=== PATIENT | male | born 1970 | race Caucasian/White ===

== ENCOUNTER 2019-05-29 19:42 | Inpatient (IN) | payer SELFPAY ==
[2019-05-29 19:49] VITALS: BMI 36.3
--- NOTE | 2019-05-29 19:56 | ECG_ITS ---
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 [id number]
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
[2019-05-29 20:32] LABS: Basophils % 0.3 %; Eosinophils # 0.2 10^3/uL (0.0-0.8); Eosinophils % 1.3 %; Hematocrit 46.1 % (42.0-52.0); Hemoglobin 15.6 g/dL (11.7-16.6); Lymphocytes # 1.8 10^3/uL (0.8-4.8); Lymphocytes % 15.5 %; Mean Corpuscular HGB Conc 33.8 g/dL (30.0-36.0); Mean Corpuscular Hemoglobin 28.1 pg (28.0-34.0); Mean Corpuscular Volume 82.9 fL (80-94); Mean Platelet Volume 9.6 fL (7.4-10.4); Monocytes # 1.1 10^3/uL (0.2-0.9); Monocytes % 9.6 %; Neutrophils # 8.3 10^3/uL (1.8-7.7); Neutrophils % 72.9 %; Nucleated Red Blood Cells % 0 %; Platelet Count 322 10^3/cmm (130-400); Red Blood Count 5.56 10^6/uL (4.1-5.3); Red Cell Distribution Width 13.7 % (12.1-15.1); White Blood Count 11.4 10^3/uL (4.0-10.0)
[2019-05-29 20:56] LABS: Alanine Aminotransferase 19 U/L (0-41); Albumin Level 4.5 g/dL (3.5-5.2); Alkaline Phosphatase 85 IU/L (40-130); Anion Gap 18.5 (5-19); Aspartate Amino Transferase 28 U/L (0-40); Blood Urea Nitrogen 11 mg/dL (6-20); Calcium 10.2 mg/dL (8.5-10.5); Carbon Dioxide 23 mmol/L (22-29); Chloride 95 mmol/L (98-107); Globulin 3.8 g/dL (1.3-4.6); Glomerular Filtration Rate 102.7 mL/min (90-130); Glucose 96 mg/dL (65-115); Phenytoin Dilantin 0.8 ug/mL (10-20); Potassium 3.5 mmol/L (3.5-5.1); Sodium 133 mmol/L (136-145); Thyroid Stimulating Hormone 1.99 uIU/mL (0.27-4.20); Total Bilirubin 0.7 mg/dL (0.15-1.2); Total Protein 8.3 g/dL (6.6-8.7); Valproic Acid Level 2.8 mcg/mL (50-100)
[2019-05-29 20:58] VITALS: BP 159/102; PULSE 133; RESP 26; TEMP 36.7; O2SAT 99
[2019-05-29 21:03] LABS: Lithium 0.1 mmol/L (0.6-1.2)
[2019-05-29 21:06] LABS: Acetaminophen < 5.0 ug/mL (10-30); Alcohol Level < 10 mg/dL (0-10); Salicylate < 0.3 mg/dL (3-10)
--- NOTE | 2019-05-29 21:27 | PC.NURSE ---
Report called to CELY Neal and patient placed in scrubs and belongings secured. Questions answered waiting for inpatient registration and plan to transport to [facility].
[2019-05-29 21:45] VITALS: BP 159/102; PULSE 133; RESP 26; TEMP 36.7; O2SAT 99
[2019-05-29 21:46] VITALS: RESP 18
[2019-05-30 06:00] VITALS: BP 121/70; PULSE 134; RESP 24; TEMP 36.9; O2SAT 95
[2019-05-30 14:00] VITALS: BP 116/71; PULSE 104; RESP 20; TEMP 36.8; O2SAT 96
[2019-05-30] MEDS: LORazepam 2 mg Tablet PO (15:04)
[2019-05-30] MEDS: OLANZapine ODT 5 MG TABLET PO (15:04)
--- NOTE | 2019-05-30 15:04 | PC.NURSE ---
PRN ZYPREXA ZYDIS ZYPREXA ZYDIS 5MG PO FOR AGITATION/PSYCHOSIS. PATIENT AGITATED AND TRYING TO GET OUT THE DOORS. PATIENT THINKS SOMEONE IS TRYING TO GET IN TO GET HIM. WILL CONTINUE TO MONITOR FOR MEDICATION EFFECTIVENESS.
--- NOTE | 2019-05-30 15:04 | PC.NURSE ---
PRN ATIVAN ATIVAN 2MG PO PER DR. LUNA ONE TIME ORDER FOR SEVERE ANXIETY.
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
--- NOTE | 2019-05-30 16:00 | PC.NURSE ---
PRN ZYPREXA DAMIEN FOLLOW UP MEDICATION SOMEWHAT EFFECTIVE. PATIENT ISNT AGITATED AND TRYING TO GET OUT THE DOORS ANYMORE.
[2019-05-30] MEDS: nicotine 2 mg Gum BUCCAL (17:38)
[2019-05-30 21:38] VITALS: RESP 18
--- NOTE | 2019-05-30 21:39 | PC.NURSE ---
Pt refused vitals. Respirations were taken.
[2019-05-31 06:00] VITALS: BP 102/69; PULSE 112; RESP 17; TEMP 36.5; O2SAT 94
--- NOTE | 2019-05-31 09:33 | CT_ITS ---
WS: [id number] CT HEAD TECHNIQUE: Noncontrast CT of the head obtained from the skullbase to the vertex. CLINICAL INFORMATION: new onset psychosis; recent head trauma; COMPARISON: None. DLP: 554.[address] scans at [facility] use at least one of these dose optimization techniques: automat ed exposure control; mA and/or kV adjustment per patient size (includes targeted exams where dose is matched to clinical indication); or iterative reconstruction. FINDINGS: No evidence of intracranial hemorrhage or mass effect. Ventricular system and basal cisterns are morse nt. 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 No extr a-axial fluid collections. No evidence of mass or mass effect. Normal alba-white differentiation. Paranasal sinuses and mastoid air cells are well aerated. .Normal visualized soft tissues. CT/CT head wo con* [id number] IMPRESSION: 1. No evidence of intracranial hemorrhage or mass effect. 2. Tiny chronic lacunar infarct anterior limb left internal capsule. 3. No other suspicious findings.
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
[2019-05-31 14:00] VITALS: BP 134/77; PULSE 77; RESP 20; TEMP 36.9; O2SAT 95
[2019-05-31] MEDS: quetiapine 100 mg Tablet 400 MG PO (20:40)
[2019-05-31 21:45] VITALS: BP 94/60; PULSE 124; RESP 28; TEMP 36.9; O2SAT 95
[2019-06-01 06:00] VITALS: BP 116/79; PULSE 77; RESP 22; TEMP 36.7; O2SAT 93
--- NOTE | 2019-06-01 10:33 | P.PN_ITS ---
Subjective NPU Subjective: Interval history: The patient is sound asleep this morning and will not arouse for interview. Mental Status Exam MSE Comments: Mental Status Exam: Patient is encountered lying in his bed asleep. He does not arouse to verbal stimuli. His breathing is unlabored. He is in no apparent distress. Cognition: Patient Appearance: Appropriate Level of Consciousness: Awake, Alert, Appropriate and Follows Commands Patient Cognition Impaired: No Ability to Follow Directions: Poor Patient Orientation (long list): Person Comprehension Ability: Unable to Comprehend Hallucination Type: None Delusion Description: Not Present Thought Process: Blocking Affect: Affect Description: [place] Behavior: Patient Behavior: Withdrawn Speech Pattern: Pressured Vitals/I&O/Wt Last Vital Signs Temp 98.1 F 06/01/19 06:00 Pulse 77 06/01/19 06:00 Resp 22 H 06/01/19 06:00 BP 116/79 06/01/19 06:00 Pulse Ox 93 06/01/19 06:00 Data NPU : 05/29/19 20:27 05/29/19 20:27 A&P Additional A&P Information Diagnoses:I cannot come up with a diagnosis for this man at this time. His mental status would be consistent with extreme methamphetamine intoxication or bipolar disorder manic episode or the result of a closed head injury. No urine drug screen was performed which complicates the differential diagnosis. Which also include diagnoses of psychosis secondary to major depression, psychotic disorder not otherwise specified, and brief psychotic reaction.Only time will tell. Assessment: Treatment plan: Due to the psychiatric conditions and treatment listed in the Assessment and Plan - the patient requires continued hospitalization. Will provide a safe and therapeutic environment for patient.. Will continue inpatient treatment to allow for medication adjustment and monitoring. Will continue q15 min safety checks. I cannot come up with a diagnosis for this man at this time. His mental status would be consistent with extreme methamphetamine intoxication or bipolar disorder manic episode or the result of a closed head injury. No urine drug screen was performed which complicates the differential diagnosis. Which also include diagnoses of psychosis secondary to major depression, psychotic disorder not otherwise specified, and brief psychotic reaction.Only time will tell.At this time we are going to treat his psychosis and level of agitation with when necessary lorazepam, Zyprexa, and Haldol. Hopefully, this is amphetamine intoxication he will normalize within the first 24 hours. If this is a manic e pisode, we will try to establish a regular diurnal cycle and start a mood stabilizer tomorrow.At this time he is at imminent risk to self or others and is 96 hour involuntary commitment will remain involved. Monitor patient's mood, sleep, appetite, and behavior closely. Encourage patient to participate in individual and group therapeutic sessions on the [place]. Estimated length of stay 5 days The expected benefits and potential side effects of patient's psychiatric medications were discussed with the patient. The patient understands and consents to treatment.CRITERIA FOR DISCHARGE: stable on medications and no longer an Risk to self or others hospital day #3: Patient tolerated Seroquel 200 mg at bedtime. He continues to have no insight into his cognitive and will emotional deficits. He continues to be mildly paranoid. Most notably though is his disorganized thinking that prevent establishment of anything close to his treatment plan or treatment goals. Plan: Increase Seroquel to 400 mg at bedtime Hospital day #4: Patient may be somewhat sedated from the increase of Seroquel to 400 mg at bedtime. To summarize for transfer of service, this patient presented with this acute mental status changes that were consistent both with amphetamine intoxication and oralia. He has no prior history of bipolar disorder though he is not a reliable informant and he did not have a confirmable mental health history. However you onset oralia at 43 years of age would be unusual and certainly less likely than amphetamine induced psychosis. As evidenced by his social history, he is prone to risk-taking behaviors. At this time the goal is to clarify whether this is amphetamine induced psychosis which would likely improve as he recovers from the amphetamine intoxication or one of new onset oralia which would require more ongoing mood stabilization.At this point, there is not enough information to make that determination. Plan: Continue Seroquel and when necessary antipsychotic medication and observe while he is on a 96 hour commitment. Involuntary Hold Information 96 Hour Hold: 96 Hour Involuntary Admission: Yes 96 Hour Hold Ending Date: 06/04/19 96 Hour Hold Ending Time: 21:03 Attestations NPU Medical Necessity Statement*: Patient will remain in hospital for 5 nights for the duration of his 96 hour involuntary commitment. Coding Level of Care Code Acute Medical Collector for Vitaly Scruggs
[2019-06-01 13:36] VITALS: BP 120/81; PULSE 72; RESP 18; TEMP 36.7; O2SAT 95
[2019-06-01 22:00] VITALS: BP 113/62; PULSE 75; RESP 20; TEMP 36.9; O2SAT 95
[2019-06-02 06:00] VITALS: BP 128/80; PULSE 79; RESP 18; TEMP 37; O2SAT 95
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
[2019-06-02] MEDS: OLANZapine ODT 5 MG TABLET PO (13:39)
[2019-06-02] MEDS: hyDROXYzine 25 mg Capsule 50 MG PO (13:39)
--- NOTE | 2019-06-02 13:39 | PC.NURSE ---
Addendum entered by Alanna Pablo LPN 06/02/19 16:36: PRN MEDS EFFECTIVE NO FURTHER C/O ANXIETY OR AGITATION. PT IS RESTING QUIETLY IN BED IN ROOM, RESP EVEN ET UNLABORED Original Note: PRN VISTARIL & ZYPREXA ZYDIS VISTARIL 50 MG GIVEN PO PER PT C/O ANXIETY & ZYPREXA ZYDIS 5 MG GIVEN PO PER PT C/O AGITATION. PT SLAMMED HIS DOOR TO HIS ROOM, YELLED AT STAFF WELL EVERYBODY ELSE IS SLAMMING THEIR DOORS AROUND HERE IT'S PISSING ME OFF
[2019-06-02 14:00] VITALS: BP 130/82; PULSE 94; RESP 19; TEMP 36.6; O2SAT 94
[2019-06-02] MEDS: trazodone 50 mg Tablet PO (20:35)
[2019-06-02] MEDS: quetiapine 100 mg Tablet 200 MG PO (20:36)
[2019-06-02 21:59] VITALS: BP 111/70; PULSE 81; RESP 17; TEMP 36.8; O2SAT 94
[2019-06-03 06:00] VITALS: BP 99/61; PULSE 71; RESP 16; TEMP 36.6; O2SAT 93
--- NOTE | 2019-06-03 13:41 | PC.NURSE ---
PT REPORTS TO STAFF THAT HE IS HAVING DIFFICULTY BREATHING. LUNG SOUNDS CLEAR, THROAT APPEARS REDDENED AND PT. DESCRIBES THAT HIS TONSILS FEEL SWOLLEN. PHYSICIAN INFORMED OF PATIENT COMPLAINT. ORDERS RECEIVED.
[2019-06-03] MEDS: LORazepam 2 mg Tablet PO (13:47)
--- NOTE | 2019-06-03 13:47 | PC.NURSE ---
Addendum entered by Ekaterina Amado LPN 06/03/19 14:33: MEDICATION EFFECTIVE. NO FURTHER C/O ANXIETY. PATIENT IS LYING IN BED RESTING. RESPIRATIONS EVEN AND UNLABORED. Original Note: PRN ATIVAN ATIVAN 2MG PO ONE TIME ORDER FOR SEVERE ANXIETY. PER DR. YORK VERBAL ORDER. WILL CONTINUE TO MONITOR FOR MEDICATION EFFECTIVENESS.
[2019-06-03] MEDS: cetylpyridinium Lozenge 1 EACH MUCOUS MEM ×2 (13:50→17:38)
[2019-06-03 14:00] VITALS: BP 130/86; PULSE 94; RESP 20; TEMP 36.8; O2SAT 96
--- NOTE | 2019-06-03 19:19 | P.PN_ITS ---
Subjective NPU Subjective: Interval history: The patient has come down with a sore throat. I examined at its inflamed but there is no pus and there is adequate airway. Auscultation of his trachea on either side is clear as are both lungs upper and lower, front and back. He can hardly whisper and meaningful communication is off the table for a while. He says his mood is better. His sister wants to talk to him and he signed a release for her to get in contact with him. Medications: Reviewed: Yes Mental Status Exam MSE Comments: The patient is dressed in his pajamas; it is time to go to bed. He is clean and neat. Mood is dysphoric and affect is flat. It is hard to say what his thought processes are speech are like right now. Cognitive functions remain intact. He denies suicidal or homicidal ideation, plan or intent Vitals/I&O/Wt Last Vital Signs Temp 98.2 F 06/03/19 14:00 Pulse 94 06/03/19 14:00 Resp 20 H 06/03/19 14:00 BP 130/86 06/03/19 14:00 Pulse Ox 96 06/03/19 14:00 Data NPU : 05/29/19 20:27 05/29/19 20:27 Involuntary Hold Information 96 Hour Hold: 96 Hour Involuntary Admission: Yes 96 Hour Hold Ending Date: 06/04/19 96 Hour Hold Ending Time: 21:03 Attestations NPU Medical Necessity Statement*: The patient is still recovering. I anticipate 4 to 6 additional midnights Time Spent in Patient Care: less than 15 minutes (>than 50% of time spent in counselling and/or direct pt care on unit) . Coding Level of Care Code Acute Customer Support Assistant for Vitaly Scruggs
[2019-06-03] MEDS: acetaminophen 325 mg Tablet 650 MG PO (21:40)
[2019-06-03] MEDS: quetiapine 100 mg Tablet 200 MG PO (21:41)
[2019-06-03 22:00] VITALS: BP 123/84; PULSE 90; RESP 20; TEMP 36.5; O2SAT 96
[2019-06-04 06:00] VITALS: BP 128/83; PULSE 66; RESP 18; TEMP 36.5; O2SAT 96
[2019-06-04 14:00] VITALS: BP 119/80; PULSE 87; RESP 20; TEMP 36.8; O2SAT 93
[2019-06-04] MEDS: cetylpyridinium Lozenge 1 EACH MUCOUS MEM ×2 (14:27→21:32)
--- NOTE | 2019-06-04 14:27 | PC.NURSE ---
PRN CEPACOL 1 LOZENGE GIVEN PO PER PT C/O SORE THROAT
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
[2019-06-04 20:04] VITALS: BP 127/61; PULSE 86; RESP 17; TEMP 36.5; O2SAT 95
[2019-06-04] MEDS: quetiapine 100 mg Tablet 200 MG PO (21:29)
[2019-06-04] MEDS: acetaminophen 325 mg Tablet 650 MG PO (21:31)
[2019-06-05 06:00] VITALS: BP 110/70; PULSE 56; RESP 15; TEMP 36.7; O2SAT 97
[2019-06-05 09:38] LABS: Influenza A by IFA Negative (Negative); Influenza B by IFA Negative (Negative)
[2019-06-05 12:36] LABS: Rapid Strep A Test Negative (Negative)
[2019-06-05 14:00] VITALS: BP 126/66; PULSE 106; RESP 18; TEMP 36.7; O2SAT 93
[2019-06-05] MEDS: cetylpyridinium Lozenge 1 EACH MUCOUS MEM (17:56)
--- NOTE | 2019-06-05 17:57 | PC.NURSE ---
Addendum entered by Alanna Pablo LPN 06/05/19 19:00: prn med effective no further c/o sore throat currently Original Note: PRN CEPACOL 1 LOZENGE GIVEN PO PER PT C/O SORE THROAT. WILL CONT TO MONITOR
[2019-06-05 21:24] VITALS: BP 133/89; PULSE 90; RESP 17; TEMP 36.6; O2SAT 96
[2019-06-05] MEDS: quetiapine 100 mg Tablet 200 MG PO (21:32)
[2019-06-06 06:00] VITALS: BP 110/66; PULSE 69; RESP 16; TEMP 36.5; O2SAT 94
[2019-06-06 14:00] VITALS: BP 141/86; PULSE 89; RESP 18; TEMP 36.9; O2SAT 96
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
[2019-06-06] MEDS: quetiapine 100 mg Tablet 200 MG PO (21:45)
[2019-06-06 22:00] VITALS: BP 143/89; PULSE 79; RESP 16; TEMP 36.8; O2SAT 93
[2019-06-07 06:00] VITALS: BP 115/63; PULSE 63; RESP 16; TEMP 36.5; O2SAT 96
[2019-06-07] MEDS: cetylpyridinium Lozenge 1 EACH MUCOUS MEM (09:58)
[2019-06-07] MEDS: blistex lip oint 7 gm Tube 1 APPLIC TOPICAL (09:58)
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
[2019-06-07 12:47] VITALS: BP 115/63; PULSE 63; RESP 16; TEMP 36.5; O2SAT 96
== END 2019-06-07 14:22 | disposition home or self-care (01) | DRG 881 ==
LOC: ER 21:00 → NP 21:20
PROVIDERS: Admitting Provider Psychiatry & Neurology Psychiatry; Emergency Provider Emergency Medicine; PCP Urology; Visit Provider Psychiatry & Neurology Psychiatry
DX: F32.9 Major depressive disorder, single episode, unspecified (principal); R45.851 Suicidal ideations; F15.10 Other stimulant abuse, uncomplicated; F17.210 Nicotine dependence, cigarettes, uncomplicated
CPT/HCPCS: 12345; 70450; 80053; 80156; 80164; 80178; 80185; 80307; 84443; 85025; 87081; 87804; 87880; 93005; 99284

== ENCOUNTER 2019-10-02 19:54 | Inpatient (IN) | payer SELFPAY ==
[2019-10-02 19:54] VITALS: BP 144/91; PULSE 72; RESP 22; TEMP 36.6; O2SAT 97
[2019-10-02 20:01] VITALS: BP 160/94; PULSE 84; RESP 18; TEMP 36.3; O2SAT 96; BMI 25.0
--- NOTE | 2019-10-02 20:22 | W.ED.PSYCH ---
HPI - Psych General: Chief Complaint: Psychiatric Symptoms Stated Complaint: mhe Time Seen by Provider: 10/02/19 20:11 Source: patient Mode of arrival: ambulatory Limitations: no limitations History of Present Illness: HPI Narrative: Ren is a 49-year-old male comes in complaining of having thoughts of wanting to hurt or kill himself. He states he has multiple plans and thoughts and has thoughts of how he may do this change rapidly. He has a history of suicidal ideation and previous hospitalizations for the same. He denies any other complaints or concerns. Review of Systems General: Reports: Other (Patient not cooperative to obtain ROS.) [facility] ED PFSH: Social History Smoking and tobacco status: current every day smoker Physical Exam Const: COMMON NORMALS: no acute distress, patient oriented x3, no limitations, healthy appearing and well nourished GENERAL APPEARANCE: cooperative, well kempt and well developed HENMT: COMMON NORMALS: normocephalic, atraumatic, external ears normal, EAC's normal and Normal external nose present HEAD & SCALP: normal to inspection, normocephalic and atraumatic FACE & SINUS: normal facial exam and face symmetric NOSE: Normal external nose present and Normal nares present EXTERNAL EAR: Yes external ears normal EXTERNAL AUDITORY CANAL: EAC's normal MOUTH: Normal oral and palatal mucosa present, lip normal and tongue normal Eye: COMMON NORMALS: Equal, round and reactive pupils present and conjunctivae normal GENERAL EYE: appearance normal, both eyes and all related structures ALIGNMENT: Yes alignment normal PERIORBITAL: periorbital findings normal EYELID: eyelids normal CONJUNCTIVA: Yes conjunctivae normal SCLERA: sclerae normal PUPIL: Yes Equal, round and reactive pupils present Neck/C-Spine: COMMON NORMALS: full ROM, no lymphadenopathy, supple, no meningeal signs and no JVD GENERAL: Yes normal visual inspection and Yes trachea midline Chest: COMMONS NORMALS: normal inspection of the chest and normal palpation of entire chest wall Resp: COMMON NORMALS: normal respiratory effort, No retractions and No use of accessory muscles EFFORT & INSPECTION: Yes able to speak in complete sentences and Yes symmetric chest movement AUSCULTATION: no crackles, no rales, no rhonchi and no wheezes Cardio: COMMON NORMALS: no JVD, regular rate, regular rhythm, S1 normal heart sound present and S2 normal heart sound present RATE: regular rate RHYTHM: regular rhythm HEART SOUNDS: S1 normal heart sound present, S2 normal heart sound present, no click, no gallops, no murmurs, no rubs and abnormal split S2 GI: COMMON NORMALS: Soft to palpation and No hepatosplenomegaly present PALPATION: Yes Soft to palpation, No Tenderness to palpation present (GI), No Guarding due to palpation present (GI), No Rigid due to palpation, Yes No hepatosplenomegaly present, No Hernia present, No Palpable mass present and No Pulsatile mass present : COMMON NORMALS: Yes no CVA tenderness BLADDER/KIDNEY EXAM: Yes no CVA tenderness Back/Pelvis: COMMON NORMALS: no CVA tenderness, thoracic and lumbar spine normal to inspection, no thoracic nor lumbar tenderness and thoraco-lumbar ROM normal Extremity: COMMON NORMALS: normal to inspection, full ROM, capillary refill normal, no joint enlargement, no clubbing, cyanosis or edema and no calf tenderness Neuro: COMMON NORMALS: patient oriented x3, CN's II-XII intact bilaterally, moves all extremities, no focal motor deficits and no sensory deficits noted MENINGEAL SIGNS: Yes no meningeal signs SPEECH: speech normal Psych: COMMON NORMALS: mental status grossly normal APPEARANCE: Yes well kempt Skin: COMMON NORMALS: no rashes or lesions noted, turgor normal, no jaundice, no petechiae and no mottling GENERAL SKIN EXAM: no rashes or lesions noted and turgor normal MDM - Psych MDM Narrative: Medical decision making narrative: The case is reviewed with Dr. Nj. He agrees to admit the patient to the MPU. An affidavit is placed on the chart so the patient can be 96 later if necessary. Lab Data: Labs: Lab Results 10/02/19 10/02/19 Range/Units 20:25 20:25 WBC 10.3 H (4.0-10.0) 10^3/ uL RBC 5.47 H (4.1-5.3) 10^6/u L Hgb 15.4 (11.7-16.6) g/dL Hct 46.5 (42.0-52.0) % MCV 85.0 (80-94) fL MCH 28.2 (28.0-34.0) pg MCHC 33.1 (30.0-36.0) g/dL RDW 13.3 (12.1-15.1) % Plt Count 328 (130-400) 10^3/c mm MPV 9.5 (7.4-10.4) fL Neut % (Auto) 60.7 % Lymph % (Auto) 28.9 % [place] % (Auto) 7.7 % Eos % (Auto) 1.7 % Baso % (Auto) 0.7 % Neut # (Auto) 6.3 (1.8-7.7) 10^3/u L Lymph # (Auto) 3.0 (0.8-4.8) 10^3/u L [place] # (Auto) 0.8 (0.2-0.9) 10^3/u L Eos # (Auto) 0.2 (0.0-0.8) 10^3/u L Baso # (Auto) 0.1 (0.0-0.1) 10^3/u L Nucleated RBC % (a uto) 0 % Nucleated RBCs # 0.0 /100WBC Sodium 135 L (136-145) mmol/L Potassium 4.0 (3.5-5.1) mmol/L Chloride 99 (98-107) mmol/L Carbon Dioxide 25 (22-29) mmol/L Anion Gap 15.0 (5-19) BUN 7 (6-20) mg/dL Creatinine 0.8 (0.7-1.2) mg/dL GFR Calculation 102.7 (90-130) mL/min Glucose 103 (65-115) mg/dL Calculated Osmolal ity 276 L (285-295) mOsm/k g Calcium 10.0 (8.5-10.5) mg/dL Total Bilirubin 0.3 (0.15-1.2) mg/dL AST 12 (0-40) U/L ALT 15 (0-41) U/L Alkaline Phosphata se 67 (40-130) IU/L Total Protein 7.2 (6.6-8.7) g/dL Albumin 4.3 (3.5-5.2) g/dL Globulin 2.9 (1.3-4.6) g/dL Salicylates < 0.3 L (3-10) mg/dL Acetaminophen < 5.0 L (10-30) ug/mL Ethyl Alcohol < 10 (0-10) mg/dL Discharge Plan Discharge Patient Disposition: Admitted As Inpatient Admit Provider: Felix Nj Clinical Impression: Suicidal ideation Condition: Stable Discharge Date/Time: 10/02/19 22:04 Coding Level of Care Code ED Office Clin Asst for Chg Fwd Exam Comprehensive
[2019-10-02 20:29] LABS: Basophils # 0.1 10^3/uL (0.0-0.1); Basophils % 0.7 %; Eosinophils # 0.2 10^3/uL (0.0-0.8); Eosinophils % 1.7 %; Hematocrit 46.5 % (42.0-52.0); Hemoglobin 15.4 g/dL (11.7-16.6); Lymphocytes % 28.9 %; Mean Corpuscular HGB Conc 33.1 g/dL (30.0-36.0); Mean Corpuscular Hemoglobin 28.2 pg (28.0-34.0); Mean Platelet Volume 9.5 fL (7.4-10.4); Monocytes # 0.8 10^3/uL (0.2-0.9); Monocytes % 7.7 %; Neutrophils # 6.3 10^3/uL (1.8-7.7); Neutrophils % 60.7 %; Nucleated Red Blood Cells % 0 %; Platelet Count 328 10^3/cmm (130-400); Red Blood Count 5.47 10^6/uL (4.1-5.3); Red Cell Distribution Width 13.3 % (12.1-15.1); White Blood Count 10.3 10^3/uL (4.0-10.0)
[2019-10-02 20:50] LABS: Alanine Aminotransferase 15 U/L (0-41); Albumin Level 4.3 g/dL (3.5-5.2); Alkaline Phosphatase 67 IU/L (40-130); Aspartate Amino Transferase 12 U/L (0-40); Blood Urea Nitrogen 7 mg/dL (6-20); Carbon Dioxide 25 mmol/L (22-29); Chloride 99 mmol/L (98-107); Globulin 2.9 g/dL (1.3-4.6); Glomerular Filtration Rate 102.7 mL/min (90-130); Glucose 103 mg/dL (65-115); Osmolality Calculated 276 mOsm/kg (285-295); Sodium 135 mmol/L (136-145); Total Bilirubin 0.3 mg/dL (0.15-1.2); Total Protein 7.2 g/dL (6.6-8.7)
[2019-10-02 20:52] LABS: Acetaminophen < 5.0 ug/mL (10-30); Alcohol Level < 10 mg/dL (0-10); Salicylate < 0.3 mg/dL (3-10)
[2019-10-02 21:59] VITALS: BP 141/85; PULSE 72; RESP 18; TEMP 36.8; O2SAT 97
[2019-10-02 22:48] VITALS: BP 141/85; PULSE 72; RESP 18; TEMP 36.8
[2019-10-02] MEDS: acetaminophen 325 mg Tablet 650 MG PO (23:56)
[2019-10-02] MEDS: trazodone 50 mg Tablet PO (23:57)
[2019-10-03 02:24] LABS: Amphetamines Screen Urine Negative (Negative); Barbiturates Screen Urine Negative (Negative); Benzodiazepines Screen Urine Negative (Negative); Cocaine Screen Urine Negative (Negative); Opiate Screen Urine Negative (Negative); PCP Screen Urine Negative (Negative); THC Screen Urine Negative (Negative)
[2019-10-03 06:00] VITALS: BP 123/75; PULSE 118; RESP 15; TEMP 36.5; O2SAT 97
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
[2019-10-03 13:19] VITALS: BP 124/80; PULSE 78; RESP 18; TEMP 36.8; O2SAT 96
[2019-10-03] MEDS: acetaminophen 325 mg Tablet 650 MG PO (21:02)
[2019-10-03] MEDS: trazodone 50 mg Tablet PO (21:03)
--- NOTE | 2019-10-03 21:03 | PC.NURSE ---
PRN TRAZODONE PT REQUESTING SLEEP AID. ADMINISTERED TRAZODONE 50 MG PO. WILL MONITOR FOR MEDICATION EFFECTIVENESS.
[2019-10-03 22:00] VITALS: BP 130/84; PULSE 74; RESP 18; TEMP 36.4; O2SAT 94
[2019-10-04 06:00] VITALS: BP 114/69; PULSE 58; RESP 17; TEMP 36.7; O2SAT 95
[2019-10-04] MEDS: ARIPiprazole 10 mg Tablet PO (10:55)
--- NOTE | 2019-10-04 12:11 | PM.NPN ---
Subjective NPU Subjective: Interval history: Ren presents today reporting that he is open to a trial of the Abilify. He had his first dose and denied any significant drawbacks or issues. He then was inquiring about discharge which we agreed to explore tomorrow after he has had a second dose. He reports that he is eating and sleeping better and he denies any significant issues. Mental Status Exam MSE Comments: This is a short, overweight, white male, with adequate dress, grooming, and eye contact. No abnormal movements except for mild psychomotor retardation. Cooperative with exam in no acute distress. Speech was slightly decreased rate and volume. Mood described as a little better; affect subdued. Thought process, organized. Thought content: patient denied any suicidal or homicidal ideation, there were no delusions reported or noted, patient denied any auditory or visual hallucinations. Attention, concentration, and memory appear intact but were not formally tested. He is alert and oriented times three. Insight and judgment appear fair. Vitals/I&O/Wt Last Vital Signs Temp 98.2 F 10/04/19 21:42 Pulse 73 10/04/19 21:42 Resp 18 10/04/19 21:42 BP 152/90 10/04/19 21:42 Pulse Ox 96 10/04/19 21:42 Data NPU : 10/02/19 20:25 10/02/19 20:25 A&P Additional A&P Information (1) Suicidal ideation: (2) Psychotic disorder: This is a 49 year old, white male, who is known to the neuro-psychiatric unit from previous hospitalizations in the past year, who returns reporting that he had stopped his medication, and was starting to have return of symptoms and he presents open to a new medication trial. Continue current medication. Start Abilify 10 mg po qam. Encourage individual, group, and milieu therapy. Continue q 15-minute checks for safety. Involuntary Hold Information 96 Hour Hold: 96 Hour Involuntary Admission: No 96 Hour Hold Ending Date: 06/04/19 96 Hour Hold Ending Time: 21:03 Attestations NPU Medical Necessity Statement*: Inpatient hospitalization is medically necessary, and the clinically appropriate intervention at this time. He will be in the hospital for over two midnights. We will monitor medications and initiate or make changes as indicated. Likely length of stay 2-4 days. Coding Level of Care Code Acute Microphone Boom Operator for Vitaly Scruggs
[2019-10-04 13:26] VITALS: BP 141/83; PULSE 86; RESP 18; TEMP 37.1; O2SAT 97
--- NOTE | 2019-10-04 13:51 | PC.RESP ---
Smoking Cessation information and a schedule of classes sent to patient.
[2019-10-04] MEDS: trazodone 50 mg Tablet PO (21:34)
[2019-10-04] MEDS: acetaminophen 325 mg Tablet 650 MG PO (21:35)
[2019-10-04 21:42] VITALS: BP 152/90; PULSE 73; RESP 18; TEMP 36.8; O2SAT 96
[2019-10-05 06:00] VITALS: BP 121/75; PULSE 88; RESP 16; TEMP 36.4; O2SAT 90
[2019-10-05] MEDS: ARIPiprazole 10 mg Tablet PO (08:11)
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
[2019-10-05 12:00] VITALS: BP 121/75; PULSE 88; RESP 16; TEMP 36.4; O2SAT 90
== END 2019-10-05 12:17 | disposition home or self-care (01) | DRG 885 ==
LOC: ER 20:41 → NP 20:56
PROVIDERS: Physician Assistant; Admitting Provider Psychiatry & Neurology Psychiatry; Visit Provider Psychiatry & Neurology Psychiatry
DX: F23 Brief psychotic disorder (principal); R45.851 Suicidal ideations; Z91.5 Personal history of self-harm; F17.210 Nicotine dependence, cigarettes, uncomplicated; F15.10 Other stimulant abuse, uncomplicated
CPT/HCPCS: 12345; 36415; 80053; 80306; 80307; 85025; 99281

== ENCOUNTER 2019-10-26 09:14 | Emergency (ER) | payer SELFPAY ==
[2019-10-26 09:21] VITALS: BP 136/83; PULSE 83; RESP 18; TEMP 36.8; O2SAT 96; BMI 33.3
--- NOTE | 2019-10-26 09:44 | W.ED.MALEGU ---
HPI - Male Genitourinary General: Chief complaint: Urogenital-Male Stated complaint: WANTS CHECKED FOR CANCER AND HE IS HAVING KIDNEY P Time Seen by Provider: 10/26/19 09:30 History of Present Illness: HPI Narrative: 49-year-old male patient presents to the emergency department with complaints of blood in his urine and blood in his stool for the past several years. He is wanting screen for cancer, requesting CTs of his entire body. History of kidney stones. He reports history of constipation, last bowel movement several days ago, reports last episode of visible blood was approximately 7 days ago. He does complain of heartburn at times. Does not have a primary care provider. He denies fever chills or diarrhea. He reports pain that radiates in his abdomen down to the testicles. He denies testicular pain at this time. Last meal was yesterday, has not had anything to drink this morning. He has history of psychiatric inpatient admission, currently off recommended medication by [facility]. He states he has not followed up with [facility] for exemption of medications. He is requesting a primary care provider today upon exam. MD Complaint: testicle pain Onset (ago): year(s) (several) Duration: intermittent Associated symptoms: Reports hematuria and urinary retention (difficulty starting urine stream); Deny dysuria, nausea or vomiting Review of Systems General: Reports: 10 or more systems reviewed and unremarkable except in HPI and below Const: Denies: fever(s), chills or diaphoresis ENMT: Denies: throat pain, dental pain or disequilibrium Card: Denies: chest pain, palpitations or irregular heart rhythm Resp: Denies: dyspnea, productive cough, non-productive cough or wheezing GI: Reports: abdominal pain (left flank/generalized), pain on defecation, hematochezia and other (constipation, last BM 2-3 days ago); Denies: nausea, vomiting or dysphagia : Reports: flank pain (left), urinary hesitancy, difficulty starting urination, hematuria and testicular pain (not current); Denies: dysuria Musc: Denies: back pain Skin/Breast: Denies: rash or pruritus Neuro: Denies: headache(s), weakness in extremities or behavioral changes Psych: Reports: anxiety (history) and depression (denies currnet - h/o psych IP admission 09/2019); Denies: auditory hallucinations, suicidal ideation or homicidal ideation Olvin/Lymph: Denies: easy bruising PFSH ED PFSH: Social History Smoking and tobacco status: current every day smoker Physical Exam Const: COMMON NORMALS: no acute distress, patient oriented x3, healthy appearing and alert GENERAL APPEARANCE: cooperative, comfortable and well hydrated HENMT: COMMON NORMALS: normocephalic, Normal external nose present and moist oral mucous membranes HEAD & SCALP: normocephalic NOSE: Normal external nose present Eye: COMMON NORMALS: Equal, round and reactive pupils present and EOMs intact bilaterally GENERAL EYE: appearance normal, both eyes and all related structures PUPIL: Yes Equal, round and reactive pupils present Neck/C-Spine: COMMON NORMALS: full ROM and no lymphadenopathy GENERAL: Yes normal visual inspection and Yes trachea midline CERVICAL SPINE: Yes cervical ROM normal Lymph: LYMPHATIC: no lymphadenopathy noted Chest: COMMONS NORMALS: normal inspection of the chest Resp: COMMON NORMALS: normal respiratory effort and clear to auscultation bilaterally AUSCULTATION: clear to auscultation bilaterally Cardio: COMMON NORMALS: regular rhythm, S1 normal heart sound present and S2 normal heart sound present RHYTHM: regular rhythm HEART SOUNDS: S1 normal heart sound present and S2 normal heart sound present GI: COMMON NORMALS: Soft to palpation and No hepatosplenomegaly present INSPECTION: Yes normal to inspection PALPATION: Yes Soft to palpation, Yes Tenderness to palpation present (GI) Details: LLQ, RLQ, LUQ and RUQ, Yes No hepatosplenomegaly present and Yes Bladder palpation abnormal RECTAL EXAM: Yes visual inspection normal, Yes normal sphincter tone and Yes heme negative stool : COMMON NORMALS: Yes no scrotal swelling and Yes No hernias present BLADDER/KIDNEY EXAM: Yes Bladder palpation abnormal and Yes CVA tenderness on the left PENIS: normal penis and circumcised MEATUS: meatus normal SCROTUM: Yes testes descended bilaterally TESTES: Yes testicular lie normal Back/Pelvis: COMMON NORMALS: thoracic and lumbar spine normal to inspection GENERAL BACK: Yes CVA tenderness Extremity: COMMON NORMALS: normal to inspection and capillary refill normal Neuro: COMMON NORMALS: patient oriented x3 and no focal motor deficits SENSORIUM/ORIENTATION: Yes alert Psych: COMMON NORMALS: mental status grossly normal, Normal thought process present and cooperative ACTIVITY/MOTOR BEHAVIOR: Yes appropriate eye contact THOUGHT PROCESS: Normal thought process present Skin: COMMON NORMALS: no rashes or lesions noted and turgor normal GENERAL SKIN EXAM: no rashes or lesions noted and turgor normal Course ED course: 49-year-old male patient presented to the emergency department for abdominal pain/flank pain/testicular discomfort with visible blood in stool. He was requesting cancer work-up today, history of renal colic. He does not have a primary care provider. Work-up in the emergency department revealed 1.4 cm simple right renal cyst, 7 mm left renal calculus, two 5 mm calculi in the dilated left renal pelvis with mild bladder wall thickening. He was prescribed antibiotics, Pepcid and naproxen and Flomax, advised to follow-up with primary care, social service consult completed for primary care placement. Questions were answered, findings were discussed in depth. He has no further questions, feels comfortable going home is appreciative of work-up completed today. No appreciation of gastrointestinal abnormalities on today's exam. Reevaluation of abdominal exam without tenderness. Negative left flank tenderness. Vital Signs: Vital signs: Vital Signs Temperature 98.3 F 10/26/19 09:21 Pulse Rate 74 10/26/19 13:00 Respiratory Rate 14 10/26/19 13:00 Blood Pressure 136/82 10/26/19 13:00 Pulse Oximetry 97 10/26/19 13:00 MDM - Male Lab Data: Labs: Lab Results 10/26/19 10/26/19 10/26/19 Range/Units 09:37 11:02 11:02 WBC 9.9 (4.0-10.0) 10^3/ uL RBC 5.44 H (4.1-5.3) 10^6/u L Hgb 15.1 (11.7-16.6) g/dL Hct 46.4 (42.0-52.0) % MCV 85.3 (80-94) fL MCH 27.8 L (28.0-34.0) pg MCHC 32.5 (30.0-36.0) g/dL RDW 14.1 (12.1-15.1) % Plt Count 310 (130-400) 10^3/c mm MPV 9.7 (7.4-10.4) fL Neut % (Auto) 65.1 % Lymph % (Auto) 20.4 % [place] % (Auto) 11.0 % Eos % (Auto) 2.7 % Baso % (Auto) 0.5 % Neut # (Auto) 6.45 (1.8-7.7) 10^3/u L Lymph # (Auto) 2.0 (0.8-4.8) 10^3/u L [place] # (Auto) 1.1 H (0.2-0.9) 10^3/u L Eos # (Auto) 0.3 (0.0-0.8) 10^3/u L Baso # (Auto) 0.1 (0.0-0.1) 10^3/u L Nucleated RBC % (a uto) 0 % Nucleated RBCs # 0.0 /100WBC Sodium 138 (136-145) mmol/L Potassium 3.9 (3.5-5.1) mmol/L Chloride 104 (98-107) mmol/L Carbon Dioxide 26 (22-29) mmol/L Anion Gap 11.9 (5-19) BUN 12 (6-20) mg/dL Creatinine 0.9 (0.7-1.2) mg/dL GFR Calculation 89.7 L (90-130) mL/min Glucose 89 (65-115) mg/dL Calculated Osmolal ity 282 L (285-295) mOsm/k g Calcium 9.6 (8.5-10.5) mg/dL Total Bilirubin 0.2 (0.15-1.2) mg/dL AST 13 (0-40) U/L ALT 13 (0-41) U/L Alkaline Phosphata se 68 (40-130) IU/L Total Protein 7.1 (6.6-8.7) g/dL Albumin 4.3 (3.5-5.2) g/dL Globulin 2.8 (1.3-4.6) g/dL Lipase 25 (13-60) U/L Urine Color Yellow (Yellow) Urine Appearance Clear (CLEAR) Urine pH 5 (5-7) Ur Specific Gravit y 1.025 (1.005-1.030) Urine Protein Neg (Negative) Urine Glucose (UA) Norm (Normal) Urine Ketones Negative (Negative) Urine Blood 3+ H (Negative) Urine Nitrate Negative (Negative) Urine Bilirubin Neg (NEGATIVE) Urine Urobilinogen Norm (Negative) mg/dL Ur Leukocyte Remedios ase Negative (Negative) Urine RBC 15-25 H (0-2) /hpf Urine WBC 5-10 H (0-5) /hpf Ur Squamous Epith Cells 0-4 H (0-5) Amorphous Sediment Not Reportable Urine Bacteria Trace (NONE) Urine Mucus Trace Imaging Data: KUB: Radiologist's impression: Patient: Ren Crenshaw #: [id number] : 1970Acct#:[id number] Age/Sex: 49 / MADM Date: 10/26/19 Loc: ERRoom/Bed: Attending Dr: Ordering Provider/Ordering MD: Tangela Swenson Date of Service: 10/26/19 Procedure(s): XR KUB 96013 Accession Number(s): [id number] Report Number: [id number] PROCEDURE INFORMATION: Exam: XR Abdomen, 1 View Exam date and time: 10/26/2019 10:00 AM Age: 49 years old Clinical indication: Patient status: Conscious; Pain: Chronic abdominal pain l>r, hematuria; Prior surgery; Surgery date: 6+ months; Surgery type: Removal of renal calculus TECHNIQUE: Imaging protocol: XR of the abdomen. Views: Frontal supine view of the abdomen. 1 View. COMPARISON: CR XR KUB [id number] 07/24/2014 9:49 AM FINDINGS: Interval removal of previously visualized left double-J catheter. Multiple residual subcentimeter left renal calculi, the largest measuring 7 mm. Prominent stool. Degenerative change. XR/XR KUB 17214 IMPRESSION: Interval removal of left double-J catheter with residual subcentimeter left renal calculi. US: Radiologist's impression: Patient: Ren Crenshaw #: [id number] : 1970Acct#:[id number] Age/Sex: 49 / MADM Date: 10/26/19 Loc: ERRoom/Bed: Attending Dr: Ordering Provider/Ordering MD: Tangela Swenson Date of Service: 10/26/19 Procedure(s): US renal BI with bladder Accession Number(s): [id number] Report Number: [id number] PROCEDURE INFORMATION: Exam: US Retroperitoneal; Complete; Kidneys and Bladder Exam date and time: 10/26/2019 10:40 AM Age: 49 years old Clinical indication: Abdominal pain; Flank; Left; Patient HX: History of kidney stones bilaterally; Additional info: Left flank pain/renal colic TECHNIQUE: Imaging protocol: Real-time ultrasound of the retroperitoneum with image documentation. Complete exam focused on the kidneys and bladder. COMPARISON: CT abdomen pelvis w con* [id number] 06/09/2014 2:11 PM FINDINGS: Right kidney: Right kidney measures 11.9 cm in length. 1.4 cm simple right renal cyst. Left kidney: Left kidney measures 11.8 cm in length. Multiple nonobstructing left renal calculi, the largest measuring 10 mm. Aorta: Normal caliber of the visualized proximal abdominal aorta. Obscuration of the mid/distal abdominal aorta by bowel gas. Bladder: Nondistended bladder. US/US renal BI with bladder IMPRESSION: 1. 1.4 cm simple right renal cyst. 2. Multiple nonobstructing left renal calculi, the largest measuring 10 mm. COMMENTS: Consistent with the [employer]'s Incidental Findings Committee white paper (J Am Rajesh Radiol 2018): Any incidental renal lesion less than 1.0 cm or classified as too small to characterize, or any incidental cystic renal lesion characterized as simple-appearing, is likely benign. No follow-up imaging is recommended for these lesions per consensus recommendations based on imaging criteria. Dictated By:Doni Joy MD CT Abd/Pel: Radiologist's impression: [place] [address] CT Scan Report Signed Patient: Ren Crenshaw #: [id number] : 1970Acct#:[id number] Age/Sex: 49 / MADM Date: 10/26/19 Loc: ERRoom/Bed: Attending Dr: Ordering Provider/Ordering MD: Tangela Swenson Date of Service: 10/26/19 Procedure(s): CT abdomen pelvis wo/w 12298 Accession Number(s): [id number] Report Number: [id number] PROCEDURE INFORMATION: Exam: CT Abdomen And Pelvis Without And With Contrast Exam date and time: 10/26/2019 11:50 AM Age: 49 years old Clinical indication: Abdominal pain; Generalized; Patient HX: C/O abd/flank, and L testicle pain w hematuria HX of stones; Additional info: Renal colic/blood in stool/abd pain TECHNIQUE: Imaging protocol: Computed tomography of the abdomen and pelvis without and with intravenous contrast. Radiation optimization: All CT scans at this facility use at least one of these dose optimization techniques: automated exposure control; mA and/or kV adjustment per patient size (includes targeted exams where dose is matched to clinical indication); or iterative reconstruction. Contrast material: OMNI 300; Contrast volume: 95 ml; Contrast route: INTRAVENOUS (IV); COMPARISON: CT abdomen pelvis w con* [id number] 06/09/2014 2:11 PM RADIATION DOSE METRICS: Total DLP (mGy-cm): 2306.01 FINDINGS: Lungs: Interstitial prominence and trace airspace disease. Coronary artery calcification. Liver: No focal hepatic mass. Gallbladder and bile ducts: Contracted gallbladder. No biliary ductal dilatation. Pancreas: No pancreatic mass or ductal dilatation. Spleen: Enlarged spleen measuring 13.0 cm in length. 10 mm accessory spleen. Adrenals: Unremarkable adrenals. Kidneys and ureters: 7 mm left renal calculus. Two 5 mm calculi in the dilated left renal pelvis. No significant ureteral dilatation. 14 mm right renal cyst. Stomach and bowel: Mild wall thickening in the fluid-filled stomach. Mild jejunal dilatation without a transition zone. Diverticula, without pericolonic inflammation. Appendix: No acute appendicitis. Intraperitoneal space: No free fluid. Vasculature: Vascular calcification. No abdominal aortic aneurysm. Lymph nodes: Subcentimeter lymph nodes. Bladder: Mild circumferential bladder wall thickening. Reproductive: Prostate calcification. Bones/joints: Schmorl's nodes and degenerative change. Mild compression deformities, greatest severity at the L1 level. 2.6 cm intraosseous hemangioma in the L2 vertebral body. Soft tissues: Small fat containing inguinal hernias. CT/CT abdomen pelvis wo/w [id number] IMPRESSION: 1. 7 mm left renal calculus. 2. Two 5 mm calculi in the dilated left renal pelvis. 3. Mild circumferential bladder wall thickening. 4. Additional findings as described above. Discharge Plan Discharge Patient Disposition: Home, Self-Care Clinical Impression: Hematochezia, Renal calculi, Renal cyst Condition: Stable Prescriptions: New Flomax 0.4 mg capsule 0.4 mg PO DAILY Qty: 10 RF: 0 naproxen 500 mg tablet 500 mg PO BID PRN (Reason: pain) Qty: 20 RF: 0 Cipro 500 mg tablet 500 mg PO Q12H Qty: 14 RF: 0 Pepcid 20 mg tablet 20 mg PO Q12H Qty: 20 RF: 0 Discharge Orders: Discharge Order (Routine); Ordered 10/26/19 Ordered By: Tangela Swenson Discharge Diet: Usual diet Discharge Activity: Resume usual activity Activity Restrictions/Additional Instructions: rehabilitation services aide will be contacting you for your primary care provider, it is important you follow-up with your primary care provider as directed. You will need to follow-up within 7 days. If you have worsening abdominal pain, you will need to return to the emergency department Take antibiotics until all gone, take with food. Discharge Date/Time: 10/26/19 13:01 Coding Level of Care Code ED [employer] for Vitaly Scruggs Exam Comprehensive
--- NOTE | 2019-10-26 10:38 | PC.NURSE ---
US IN ROOM
[2019-10-26 11:08] LABS: Basophils # 0.1 10^3/uL (0.0-0.1); Basophils % 0.5 %; Eosinophils # 0.3 10^3/uL (0.0-0.8); Eosinophils % 2.7 %; Hematocrit 46.4 % (42.0-52.0); Hemoglobin 15.1 g/dL (11.7-16.6); Lymphocytes % 20.4 %; Mean Corpuscular HGB Conc 32.5 g/dL (30.0-36.0); Mean Corpuscular Hemoglobin 27.8 pg (28.0-34.0); Mean Corpuscular Volume 85.3 fL (80-94); Mean Platelet Volume 9.7 fL (7.4-10.4); Monocytes # 1.1 10^3/uL (0.2-0.9); Neutrophils # 6.45 10^3/uL (1.8-7.7); Neutrophils % 65.1 %; Nucleated Red Blood Cells % 0 %; Platelet Count 310 10^3/cmm (130-400); Red Blood Count 5.44 10^6/uL (4.1-5.3); Red Cell Distribution Width 14.1 % (12.1-15.1); White Blood Count 9.9 10^3/uL (4.0-10.0)
[2019-10-26 11:09] LABS: Add Urine Microscopic? YES; Bilirubin Urine Neg (NEGATIVE); Blood Urine 3+ (Negative); Glucose Urine UA Norm (Normal); Ketones Urine Negative (Negative); Leukocyte Esterase Urine Negative (Negative); Nitrate Urine Negative (Negative); Protein Urine Neg (Negative); RBC Urine 15-25 /hpf (0-2); Specific Gravity, Urine 1.025 (1.005-1.030); Urine Appearance Clear (CLEAR); Urine Color Yellow (Yellow); Urobilinogen Urine Norm (Negative); pH Urine 5 (5-7)
[2019-10-26 11:10] LABS: Add Urine Culture? Yes; Bacteria Urine TRACE; Mucus Urine TRACE; Squamous Epithelial Cell Urine 0-4 (0-5)
--- NOTE | 2019-10-26 11:35 | CTR_ITS ---
PROCEDURE INFORMATION: Exam: CT Abdomen And Pelvis Without And With Contrast Exam date and time: 10/26/2019 11:50 AM Age: 49 years old Clinical indication: Abdominal pain; Generalized; Patient HX: C/O abd/flank, and L testicle pain w hematuria HX of stones; Additional info: Renal colic/blood in stool/abd pain TECHNIQUE: Imaging protocol: Computed tomography of the abdomen and pelvis without and with intravenous contrast. Radiation optimization: All CT scans at this facility use at least one of these dose optimization techniques: automated exposure control; mA and/or kV adjustment per patient size (includes targeted exams where dose is matched to clinical indication); or iterative reconstruction. Contrast material: OMNI 300; Contrast volume: 95 ml; Contrast route: INTRAVENOUS (IV); COMPARISON: CT abdomen pelvis w con* [id number] 06/09/2014 2:11 PM RADIATION DOSE METRICS: Total DLP (mGy-cm): 2306.01 FINDINGS: Lungs: Interstitial prominence and trace airspace disease. Coronary artery calcification. Liver: No focal hepatic mass. Gallbladder and bile ducts: Contracted gallbladder. No biliary ductal dilatation. Pancreas: No pancreatic mass or ductal dilatation. Spleen: Enlarged spleen measuring 13.0 cm in length. 10 mm accessory spleen. Adrenals: Unremarkable adrenals. Kidneys and ureters: 7 mm left renal calculus. Two 5 mm calculi in the dilated left renal pelvis. No significant ureteral dilatation. 14 mm right renal cyst. Stomach and bowel: Mild wall thickening in the fluid-filled stomach. Mild jejunal dilatation without a transition zone. Diverticula, without pericolonic inflammation. Appendix: No acute appendicitis. Intraperitoneal space: No free fluid. Vasculature: Vascular calcification. No abdominal aortic aneurysm. Lymph nodes: Subcentimeter lymph nodes. Bladder: Mild circumferential bladder wall thickening. Reproductive: Prostate calcification. Bones/joints: Schmorl's nodes and degenerative change. Mild compression deformities, greatest severity at the L1 level. 2.6 cm intraosseous hemangioma in the L2 vertebral body. Soft tissues: Small fat containing inguinal hernias. CT/CT abdomen pelvis wo/w [id number] IMPRESSION: 1. 7 mm left renal calculus. 2. Two 5 mm calculi in the dilated left renal pelvis. 3. Mild circumferential bladder wall thickening. 4. Additional findings as described above. Radiation Dose CTDIVOL = (mGy): DLP = 2306.01 (mGy-cm)
[2019-10-26 11:39] LABS: Alanine Aminotransferase 13 U/L (0-41); Albumin Level 4.3 g/dL (3.5-5.2); Alkaline Phosphatase 68 IU/L (40-130); Anion Gap 11.9 (5-19); Aspartate Amino Transferase 13 U/L (0-40); Blood Urea Nitrogen 12 mg/dL (6-20); Calcium 9.6 mg/dL (8.5-10.5); Carbon Dioxide 26 mmol/L (22-29); Chloride 104 mmol/L (98-107); Globulin 2.8 g/dL (1.3-4.6); Glomerular Filtration Rate 89.7 mL/min (90-130); Glucose 89 mg/dL (65-115); Lipase 25 U/L (13-60); Osmolality Calculated 282 mOsm/kg (285-295); Potassium 3.9 mmol/L (3.5-5.1); Sodium 138 mmol/L (136-145); Total Bilirubin 0.2 mg/dL (0.15-1.2); Total Protein 7.1 g/dL (6.6-8.7)
[2019-10-26] MEDS: iohexol 300 mg/mL 100 mL Btl IV (12:10)
[2019-10-26 13:00] VITALS: BP 136/82; PULSE 74; RESP 14; O2SAT 97
--- NOTE | 2019-10-28 11:07 | DCPLANNER ---
manager fleet had message to speak with patient about getting established with a primary care physician. manager fleet called phone number , was unable to speak with patient at this time, phone number is no longer in service or has been disconnected.
== END 2019-10-26 13:01 | disposition home or self-care (01) ==
PROVIDERS: Emergency Provider Nurse Practitioner Family
DX: N20.0 Calculus of kidney (principal); N28.1 Cyst of kidney, acquired; K92.1 Melena; F17.210 Nicotine dependence, cigarettes, uncomplicated
CPT/HCPCS: 12345; 74018; 74178; 76770; 76857; 80053; 81001; 81003; 83690; 85025; 87086; 99282; 99284; Q9967

== ENCOUNTER 2019-11-03 09:43 | Emergency (ER) | payer SELFPAY ==
[2019-11-03 09:50] VITALS: BMI 36.6
[2019-11-03 09:53] VITALS: BP 157/86; PULSE 92; RESP 18; TEMP 36.8; O2SAT 97
--- NOTE | 2019-11-03 10:30 | CTR_ITS ---
PROCEDURE INFORMATION: Exam: CT Cervical Spine Without Contrast Exam date and time: 11/03/2019 10:37 AM Age: 49 years old Clinical indication: Neck pain TECHNIQUE: Imaging protocol: Computed tomography images of the cervical spine without contrast. Axial, coronal and sagittal reformatted images were created and reviewed. Radiation optimization: All CT scans at this facility use at least one of these dose optimization techniques: automated exposure control; mA and/or kV adjustment per patient size (includes targeted exams where dose is matched to clinical indication); or iterative reconstruction. COMPARISON: No relevant prior studies available. RADIATION DOSE METRICS: Total DLP (mGy-cm): 861.6 FINDINGS: Vertebrae: Osteopenia. Straightening of the normal cervical lordosis. Alignment anatomic. Minimal dextroscoliosis. No CT evidence of acute fracture, dislocation or subluxation. Vertebral body heights maintained. Discs/Spinal canal/Neural foramina: Mild multilevel degenerative changes, characterized by disc space narrowing, osteophytosis and uncovertebral and facet joint hypertrophy, most notably at C5-C6 and C6-C7. Mild spinal canal narrowing at C5-C6 and C6-C7. Mild left greater than right neural foraminal narrowing C7. Soft tissues: Grossly unremarkable. Lungs: Grossly unremarkable. CT/CT cervical spin wo con* [id number] IMPRESSION: 1. Mild multilevel spondylosis and degenerative disc disease. 2. Additional findings, as above. Radiation Dose CTDIVOL = (mGy): DLP = 861.6 (mGy-cm)
--- NOTE | 2019-11-03 10:30 | CTR_ITS ---
PROCEDURE INFORMATION: Exam: CT Head Without Contrast Exam date and time: 11/03/2019 10:37 AM Age: 49 years old Clinical indication: Pain; Headache; Additional info: BESS TECHNIQUE: Imaging protocol: Computed tomography of the head without contrast. Axial, coronal and sagittal reformatted images were created and reviewed. Radiation optimization: All CT scans at this facility use at least one of these dose optimization techniques: automated exposure control; mA and/or kV adjustment per patient size (includes targeted exams where dose is matched to clinical indication); or iterative reconstruction. COMPARISON: CT head wo con* [id number] 05/31/2019 11:49 AM RADIATION DOSE METRICS: Total DLP (mGy-cm): 770.21 FINDINGS: Brain: No CT evidence of acute intracranial hemorrhage or acute territorial infarction. No significant mass effect or midline shift. Basal cisterns patent. Ventricles: Normal in size and configuration. Bones/joints: No acute osseous abnormality. Sinuses: Minimal ethmoid mucosal thickening. Mastoid air cells: Grossly unremarkable. Soft tissues: Grossly unremarkable. CT/CT head wo con* [id number]: 1[address] No CT evidence of acute intracranial pathology. 2. Additional findings, as above. Radiation Dose CTDIVOL = (mGy): DLP = 770.21 (mGy-cm)
--- NOTE | 2019-11-03 10:33 | ED_ITS ---
HPI - General Adult General: Chief complaint: General Medical Stated complaint: UNCONTROLLABLE MOVEMENTS Time Seen by Provider: 11/03/19 09:57 History of Present Illness: HPI narrative: patient complains of uncontrollable movements of his head, neck, and often the rest of his body. Patient states that all of these pains are from his neck and radiate outwards Onset (ago): month(s) Severity: severe Relieving factors: none Exacerbating factors: movement Treatments prior to arrival: none Review of Systems General: Reports: 10 or more systems reviewed and unremarkable except in HPI and below PFSH ED PFSH: Social History Smoking and tobacco status: current every day smoker Physical Exam Const: COMMON NORMALS: no acute distress, patient oriented x3, no limitations and alert HENMT: COMMON NORMALS: normocephalic, atraumatic, external ears normal and Normal external nose present HEAD & SCALP: normocephalic and atraumatic FACE & SINUS: normal facial exam NOSE: Normal external nose present EXTERNAL EAR: Yes external ears normal MOUTH: Normal oral and palatal mucosa present Neck/C-Spine: COMMON NORMALS: full ROM, no lymphadenopathy, supple, no meningeal signs and no JVD GENERAL: Yes normal visual inspection Resp: COMMON NORMALS: normal respiratory effort, No retractions, No use of accessory muscles and clear to auscultation bilaterally AUSCULTATION: clear to auscultation bilaterally Cardio: COMMON NORMALS: no JVD, regular rate and regular rhythm RATE: regular rate RHYTHM: regular rhythm GI: COMMON NORMALS: Normal to inspection, nondistended, normoactive bowel sounds present, Soft to palpation, non-tender, No hepatosplenomegaly present and no masses INSPECTION: Yes normal to inspection AUSCULTATION: Yes normoactive bowel sounds PALPATION: Yes Soft to palpation and Yes No hepatosplenomegaly present PERCUSSION: normal to percussion : COMMON NORMALS: Yes no CVA tenderness BLADDER/KIDNEY EXAM: Yes no CVA tenderness Back/Pelvis: COMMON NORMALS: no CVA tenderness, thoracic and lumbar spine normal to inspection, no thoracic nor lumbar tenderness, thoraco-lumbar ROM normal and straight leg raise negative bilaterally Extremity: COMMON NORMALS: normal to inspection, full ROM, capillary refill normal, no joint enlargement, no clubbing, cyanosis or edema, no calf tenderness and no pedal edema Neuro: COMMON NORMALS: patient oriented x3, moves all extremities, no focal motor deficits and no sensory deficits noted SENSORIUM/ORIENTATION: Yes alert MENINGEAL SIGNS: Yes no meningeal signs Psych: COMMON NORMALS: mental status grossly normal, Normal thought process present, cooperative, normal affect and speech normal SPEECH: Yes normal speech THOUGHT PROCESS: Normal thought process present Skin: COMMON NORMALS: no rashes or lesions noted, no wounds, turgor normal, no jaundice, no petechiae and no mottling GENERAL SKIN EXAM: no rashes or lesions noted and turgor normal Course Vital Signs: Vital signs: Vital Signs Temperature 98.3 F 11/03/19 09:53 Pulse Rate 92 11/03/19 09:53 Respiratory Rate 18 11/03/19 09:53 Blood Pressure 157/86 11/03/19 09:53 Pulse Oximetry 97 11/03/19 09:53 MDM - General Adult MDM Narrative: Medical decision making narrative: the movements of the patient's head and neck are obviously voluntary movements. There is no evidence of muscle spasm, tremor, or tardive dyskinesia Discharge Plan Discharge Patient Disposition: Home Clinical Impression: Dyskinesia Condition: Stable Prescriptions: New cyclobenzaprine 10 mg tablet 10 mg PO TID PRN (Reason: muscle spasm) Qty: 20 RF: 0 No Action Cipro 500 mg tablet 500 mg PO BID RF: 0 Discharge Orders: Discharge Order (Routine); Ordered 11/03/19 Ordered By: Bethel Lyons Coding Level of Care Code ED Machine Cloth Trimmer for Chg Fwd Exam Comprehensive
== END 2019-11-03 11:44 | disposition home or self-care (01) ==
PROVIDERS: Emergency Provider Family Medicine
DX: G24.9 Dystonia, unspecified (principal); F17.210 Nicotine dependence, cigarettes, uncomplicated
CPT/HCPCS: 12345; 70450; 72125; 99281; 99283

== ENCOUNTER 2019-12-06 09:15 | Emergency (ER) | payer SELFPAY ==
[2019-12-06 09:16] VITALS: BP 135/84; PULSE 83; RESP 37; TEMP 36.6; O2SAT 100; BMI 33.3
[2019-12-06 09:21] VITALS: BP 135/84; PULSE 76; RESP 18; O2SAT 94
--- NOTE | 2019-12-06 09:27 | W.ED.GENADLT ---
HPI - General Adult General: Chief complaint: General Medical Stated complaint: collapsed in waiting room Time Seen by Provider: 12/06/19 09:27 History of Present Illness: HPI narrative: Patient arrives in the ER with complaints of dry mouth shortness of breath and head movement times many months. Said he came in today because he just tired of it. Patient appeared to be hyperventilating on presentation to the ER. Patient is able to converse he is able to stop his head from moving if he wants to. MD complaint: Psychotic features Onset (ago): month(s) Associated symptoms: Deny chest pain, dyspnea, headache(s), nausea, rash or vomiting Review of Systems Narrative: Patient presents to the ER with reported collapsing out in the waiting room but it appears that he laid himself down on the floor he was able to help in assisting up onto the cart and in the room he states that his mouth has been dry for months his head will not quit turning and that he has been short of breath. Const: Denies: fever(s), chills or body aches Eyes: Denies: change in vision or blurry vision ENMT: Denies: throat pain or nasal congestion Card: Denies: chest pain or dyspnea on exertion Resp: Denies: dyspnea, productive cough or non-productive cough GI: Denies: abdominal pain, nausea or vomiting : Denies: difficulty urinating Musc: Denies: extremity pain Skin/Breast: Denies: rash Neuro: Denies: headache(s) Psych: Reports: anxiety; Denies: depression Olvin/Lymph: Denies: easy bruising PFSH ED PFSH: Social History Smoking and tobacco status: current every day smoker Physical Exam Narrative: EXAM NARRATIVE: Sats are stable he did not appear to have any difficulty breathing skin is warm and dry he is turning head purposefully from side to side. Is able to stop when asked to do that Const: COMMON NORMALS: no acute distress, average body habitus and patient oriented x3 HENMT: COMMON NORMALS: normocephalic HEAD & SCALP: normal to inspection and normocephalic FACE & SINUS: normal facial exam Eye: COMMON NORMALS: conjunctivae normal GENERAL EYE: appearance normal, both eyes and all related structures CONJUNCTIVA: Yes conjunctivae normal Neck/C-Spine: COMMON NORMALS: no JVD Chest: COMMONS NORMALS: normal inspection of the chest Resp: COMMON NORMALS: normal respiratory effort and clear to auscultation bilaterally AUSCULTATION: clear to auscultation bilaterally Cardio: COMMON NORMALS: no JVD, regular rate and regular rhythm RATE: regular rate RHYTHM: regular rhythm GI: COMMON NORMALS: Normal to inspection, nondistended, normoactive bowel sounds present Extremity: COMMON NORMALS: normal to inspection and full ROM Neuro: COMMON NORMALS: patient oriented x3 Psych: ACTIVITY/MOTOR BEHAVIOR: Yes hyperactivity SPEECH: Yes rapid MOOD & AFFECT: Yes anxious Course Vital Signs: Vital signs: Vital Signs Temperature 97.9 F 12/06/19 09:16 Pulse Rate 83 12/06/19 09:16 Respiratory Rate 37 H 12/06/19 09:16 Blood Pressure 135/84 12/06/19 09:16 Pulse Oximetry 100 12/06/19 09:16 Discharge Plan Discharge Prescriptions: No Action Cipro 500 mg tablet 500 mg PO BID RF: 0 cyclobenzaprine 10 mg tablet 10 mg PO TID PRN (Reason: muscle spasm) Qty: 20 RF: 0 Coding Level of Care Code ED Small Brake Form Operator for Vitaly Scruggs
[2019-12-06 09:29] LABS: Alveolar-Arterial Oxygen Gradi 9.7 mmHg (5-10); Arterial Blood Gas Hematocrit 51.7 % (42-52); Base Excess ABG -0.9 mmol/L (-2.0-2.0); Blood Gas Operator Identificat ED; Blood Gas Sample Site Brachial, right; Blood Gas Sample Type Arterial; Carboxyhemoglobin 7.5 %THgb (0.4-20.1); HCO3 ABG 17.7 mmol/L (22-26); HGB O2 Sat 85.8 % (95-100); Ionized Calcium Level - ABG 1.2 mmol/L (1.1-1.4); Methemoglobin 0.6 % (0.4-1.5); Oxygen Saturation ABG 93.5; Potassium Level - ABG 3.3 mmol/L (3.5-5.0); Total Hemoglobin 16.9 g/dL (14-18)
[2019-12-06 09:30] LABS: ABG PCO2 18.8 mmHg (35-45); ABG PH Result 7.58 (7.35-7.45)
--- NOTE | 2019-12-06 09:30 | XR_ITS ---
WS: [id number] Portable AP upright chest, 12/06/2019 Clinical Data: sob Comparison: Portable chest, 03/22/2019. Findings: No nodules, masses or effusions are seen. The heart is normal. The pulmonary vascularity is not increased. No pneumonia or pneumothorax is seen. Monitor leads on the chest wall. XR/XR chest 1V portable [id number] Impression: Negative chest.
[2019-12-06] MEDS: LORazepam 2 mg/mL INJ 1 mL 0.5 MG IM (09:36)
[2019-12-06] MEDS: LORazepam 2 mg/mL INJ 1 mL 1 MG IM (09:37)
--- NOTE | 2019-12-06 09:42 | PC.NURSE ---
ADI Castro and Dr Villarreal both ordered Ativan at the same time. Matthew cancelled his orginal order for 2 mg, after knowing that pt was giving Ativan 0.5 mg IM.
[2019-12-06 09:44] VITALS: BP 109/77; PULSE 72; RESP 18; O2SAT 96
[2019-12-06 09:44] LABS: Basophils # 0.1 10^3/uL (0.0-0.1); Basophils % 0.7 %; Eosinophils # 0.2 10^3/uL (0.0-0.8); Eosinophils % 2.2 %; Hematocrit 51.2 % (42.0-52.0); Hemoglobin 17.4 g/dL (11.7-16.6); Lymphocytes # 3.4 10^3/uL (0.8-4.8); Mean Corpuscular Hemoglobin 28.3 pg (28.0-34.0); Mean Corpuscular Volume 83.4 fL (80-94); Mean Platelet Volume 9.9 fL (7.4-10.4); Monocytes # 0.8 10^3/uL (0.2-0.9); Monocytes % 8.6 %; Neutrophils # 5.12 10^3/uL (1.8-7.7); Neutrophils % 53.3 %; Nucleated Red Blood Cells % 0 %; Platelet Count 365 10^3/cmm (130-400); Red Blood Count 6.14 10^6/uL (4.1-5.3); Red Cell Distribution Width 14.6 % (12.1-15.1); White Blood Count 9.6 10^3/uL (4.0-10.0)
--- NOTE | 2019-12-06 09:46 | PC.NURSE ---
States he has been having these same S/S for months. Needs to be on medication for depression / anxiety. NO currently on any meds
[2019-12-06 09:58] LABS: Alanine Aminotransferase 12 U/L (0-41); Albumin Level 4.9 g/dL (3.5-5.2); Alkaline Phosphatase 65 IU/L (40-130); Anion Gap 20.5 (5-19); Aspartate Amino Transferase 11 U/L (0-40); Blood Urea Nitrogen 15 mg/dL (6-20); Carbon Dioxide 18 mmol/L (22-29); Chloride 103 mmol/L (98-107); Globulin 3.7 g/dL (1.3-4.6); Glomerular Filtration Rate 79.4 mL/min (90-130); Glucose 101 mg/dL (65-115); Osmolality Calculated 282 mOsm/kg (285-295); Potassium 3.5 mmol/L (3.5-5.1); Sodium 138 mmol/L (136-145); Total Bilirubin 0.7 mg/dL (0.15-1.2); Total Protein 8.6 g/dL (6.6-8.7)
[2019-12-06 11:03] VITALS: BP 130/75; PULSE 67; RESP 18; TEMP 36.7; O2SAT 95
== END 2019-12-06 11:39 | disposition home or self-care (01) ==
PROVIDERS: Family Medicine; Emergency Provider Nurse Practitioner Family
DX: R06.02 Shortness of breath (principal); F17.210 Nicotine dependence, cigarettes, uncomplicated
CPT/HCPCS: 12345; 36600; 71045; 80051; 80053; 82810; 83986; 85025; 96372; 99283; J2060

== ENCOUNTER 2019-12-18 12:08 | Emergency (ER) | payer SELFPAY ==
[2019-12-18 12:09] VITALS: BP 124/84; PULSE 97; RESP 18; TEMP 36.6; O2SAT 95; BMI 25.0
--- NOTE | 2019-12-18 12:13 | XRR_ITS ---
PROCEDURE INFORMATION: Exam: XR Chest, 1 View Exam date and time: 12/18/2019 12:47 PM Age: 49 years old Clinical indication: Shortness of breath TECHNIQUE: Imaging protocol: XR of the chest Views: 1 view. COMPARISON: CR XR chest 1V portable [id number] 12/06/2019 9:28 AM FINDINGS: Lungs: Unremarkable. No consolidation. Pleural space: Unremarkable. No pleural effusion. No pneumothorax. Heart/Mediastinum: Unremarkable. No cardiomegaly. Bones/joints: Unremarkable. XR/XR chest 1V portable [id number] IMPRESSION: No acute findings.
--- NOTE | 2019-12-18 12:13 | ECG_ITS ---
[facility] Test Date: 2019-12-18 Pat Name: Ren Crenshaw Department: Room: Gender: Male Remote Coders: : 1970 Requested By: Chula Marte Order Number: [id number] Barrera MD: Danni Brown M.D. Measurements Intervals [place] Rate: 69 P: 43 MS: 202 QRS: 22 QRSD: 100 T: 91 QT: 411 QTc: 442 Interpretive Statements SINUS RHYTHM POSSIBLE INFERIOR MYOCARDIAL INFARCTION , PROBABLY OLD [30 ms Q WAVE IN II/aVF] Compared to ECG 05/29/2019 20:50:35 Sinus tachycardia no longer present Myocardial infarct finding still present Electronically Signed On 12-18-2019 19:53:51 CDT by Danni Brown M.D. [id number]
--- NOTE | 2019-12-18 12:15 | W.ED.GENADLT ---
HPI - General Adult General: Chief complaint: General Medical Stated complaint: constant moving Time Seen by Provider: 12/18/19 12:10 Source: patient Mode of arrival: ambulatory Limitations: no limitations History of Present Illness: HPI narrative: Ren is a 49-year-old male who comes in with uncontrollable movements. He states he has had these symptoms before. Today his symptoms started about 2 hours prior to arrival. He denies any chest pain, shortness of breath or nausea or vomiting. Patient's been seen here twice before for similar symptoms and no cause can be found. Patient states that this is somewhat worse and mild but otherwise he is not had fever, fatigue or any other systemic type illness symptoms. Patient with movements are purposeful with his head turning back and forth in his arms alternating with movements. His legs do not move but have purposeful movements making him more comfortable in the bed. The patient can be distracted and his movements can stop and he can follow commands and when he does so his movements once he says do not stop to stop. Associated symptoms: Deny chest pain, dyspnea, headache(s), nausea, rash, palpitations, syncope or vomiting Review of Systems Const: Denies: fever(s) Eyes: Denies: change in vision or blurry vision ENMT: Denies: throat pain or hoarseness Card: Denies: chest pain, palpitations, syncope, pre-syncope or dyspnea on exertion Resp: Denies: dyspnea, productive cough or non-productive cough GI: Denies: abdominal pain, nausea, vomiting or diarrhea : Denies: flank pain, dysuria, urinary frequency or urinary urgency Musc: Denies: neck pain, back pain or extremity pain Skin/Breast: Denies: rash or pruritus Neuro: Denies: headache(s), numbness in extremities, weakness in extremities or dizziness [facility] ED PFSH: Medical History (Updated 12/18/19 @ 13:27 by Chula Montero) Anxiety Social History Smoking and tobacco status: current every day smoker Physical Exam Const: COMMON NORMALS: no acute distress, patient oriented x3, no limitations, healthy appearing and well nourished GENERAL APPEARANCE: cooperative, well kempt and well developed OTHER: Patient has [id number] movements of moving his head back and forth and flailing his arms back and forth. Patient can stop when distracted and can stop when commanded to. Patient able to speak and give history throughout all of his movements. HENMT: COMMON NORMALS: normocephalic, atraumatic, external ears normal, EAC's normal and Normal external nose present HEAD & SCALP: normal to inspection, normocephalic and atraumatic FACE & SINUS: normal facial exam and face symmetric NOSE: Normal external nose present and Normal nares present EXTERNAL EAR: Yes external ears normal EXTERNAL AUDITORY CANAL: EAC's normal MOUTH: Normal oral and palatal mucosa present, lip normal and tongue normal Eye: COMMON NORMALS: Equal, round and reactive pupils present and conjunctivae normal GENERAL EYE: appearance normal, both eyes and all related structures ALIGNMENT: Yes alignment normal PERIORBITAL: periorbital findings normal EYELID: eyelids normal CONJUNCTIVA: Yes conjunctivae normal SCLERA: sclerae normal PUPIL: Yes Equal, round and reactive pupils present Neck/C-Spine: COMMON NORMALS: full ROM, no lymphadenopathy, supple, no meningeal signs and no JVD GENERAL: Yes normal visual inspection and Yes trachea midline Chest: COMMONS NORMALS: normal inspection of the chest and normal palpation of entire chest wall Resp: COMMON NORMALS: normal respiratory effort, No retractions, No use of accessory muscles and clear to auscultation bilaterally EFFORT & INSPECTION: Yes able to speak in complete sentences and Yes symmetric chest movement AUSCULTATION: clear to auscultation bilaterally, no crackles, no rales, no rhonchi and no wheezes Cardio: COMMON NORMALS: no JVD, regular rate, regular rhythm, S1 normal heart sound present and S2 normal heart sound present RATE: regular rate RHYTHM: regular rhythm HEART SOUNDS: S1 normal heart sound present, S2 normal heart sound present, no click, no gallops, no murmurs, no rubs and abnormal split S2 GI: COMMON NORMALS: Soft to palpation and No hepatosplenomegaly present PALPATION: Yes Soft to palpation, No Tenderness to palpation present (GI), No Guarding due to palpation present (GI), No Rigid due to palpation, Yes No hepatosplenomegaly present, No Hernia present, No Palpable mass present and No Pulsatile mass present : COMMON NORMALS: Yes no CVA tenderness BLADDER/KIDNEY EXAM: Yes no CVA tenderness Back/Pelvis: COMMON NORMALS: no CVA tenderness, thoracic and lumbar spine normal to inspection, no thoracic nor lumbar tenderness and thoraco-lumbar ROM normal Extremity: COMMON NORMALS: normal to inspection, full ROM, capillary refill normal, no joint enlargement, no clubbing, cyanosis or edema and no calf tenderness Neuro: COMMON NORMALS: patient oriented x3, CN's II-XII intact bilaterally, moves all extremities, no focal motor deficits and no sensory deficits noted MENINGEAL SIGNS: Yes no meningeal signs SPEECH: speech normal Psych: COMMON NORMALS: mental status grossly normal, Normal thought process present, cooperative, normal affect, speech normal and activity/motor behavior normal APPEARANCE: Yes well kempt SPEECH: Yes normal speech THOUGHT PROCESS: Normal thought process present Skin: COMMON NORMALS: no rashes or lesions noted, turgor normal, no jaundice, no petechiae and no mottling GENERAL SKIN EXAM: no rashes or lesions noted and turgor normal Course Vital Signs: Vital signs: Vital Signs Temperature 97.9 F 12/18/19 12:09 Pulse Rate 73 12/18/19 13:41 Respiratory Rate 18 12/18/19 13:41 Blood Pressure 163/76 12/18/19 13:41 Pulse Oximetry 98 12/18/19 13:41 MDM - General Adult MDM Narrative: Medical decision making narrative: 1334 -the patient symptoms have completely resolved. He admits this is probably a panic attack. He is asking something for anxiety. I will start him on Atarax and have him call [facility] [place] for follow-up. Patient denies any homicidal or suicidal ideation. He states now that he feels back to normal he is ready to go home. Medical Records: Attestation: I reviewed the patient's medical records. Medical records narrative: Patient's last 2 ER visits were reviewed. Patient apparently cannot stop moving whenever he wants to. Please see his last 2 ER notes 1 from October of this year the other from November of this year. Lab Data: Labs: Lab Results 12/18/19 12/18/19 12/18/19 Range/Units 12:22 12:22 12:22 WBC 10.6 H (4.0-10.0) 10^3/ uL RBC 5.89 H (4.1-5.3) 10^6/u L Hgb 16.6 (11.7-16.6) g/dL Hct 50.0 (42.0-52.0) % MCV 84.9 (80-94) fL MCH 28.2 (28.0-34.0) pg MCHC 33.2 (30.0-36.0) g/dL RDW 14.4 (12.1-15.1) % Plt Count 294 (130-400) 10^3/c mm MPV 10.2 (7.4-10.4) fL Neut % (Auto) 70.6 % Lymph % (Auto) 20.4 % Barron % (Auto) 7.4 % Eos % (Auto) 0.9 % Baso % (Auto) 0.5 % Neut # (Auto) 7.48 (1.8-7.7) 10^3/u L Lymph # (Auto) 2.2 (0.8-4.8) 10^3/u L Barron # (Auto) 0.8 (0.2-0.9) 10^3/u L Eos # (Auto) 0.1 (0.0-0.8) 10^3/u L Baso # (Auto) 0.1 (0.0-0.1) 10^3/u L Nucleated RBC % (a uto) 0 % Nucleated RBCs # 0.0 /100WBC Sodium 137 (136-145) mmol/L Potassium 3.9 (3.5-5.1) mmol/L Chloride 103 (98-107) mmol/L Carbon Dioxide 17 L (22-29) mmol/L Anion Gap 20.9 H (5-19) BUN 18 (6-20) mg/dL Creatinine 0.9 (0.7-1.2) mg/dL GFR Calculation 89.7 L (90-130) mL/min Glucose 96 (65-115) mg/dL Calculated Osmolal ity 280 L (285-295) mOsm/k g Calcium 9.7 (8.5-10.5) mg/dL Magnesium 2.2 (1.7-2.3) mg/dL Total Bilirubin 0.8 (0.15-1.2) mg/dL AST 12 (0-40) U/L ALT 8 (0-41) U/L Alkaline Phosphata se 61 (40-130) IU/L Troponin T Gen 5 n g/L 11 (0-15) ng/L Total Protein 8.3 (6.6-8.7) g/dL Albumin 4.6 (3.5-5.2) g/dL Globulin 3.7 (1.3-4.6) g/dL Imaging Data^: CXR: Attestation: I personally reviewed and interpreted this imaging study as follows: My impression: No acute cardiopulmonary findings. EKG Data^: EKG 1: Attestation: I personally reviewed and interpreted this EKG as follows: EKG interpretation date: 12/18/19 EKG interpretation time: 13:01 Interpretation: Normal sinus rhythm at 69 beats a minute, normal axis, no blocks, normal intervals, no acute ST-T wave changes. Computer generated interpretation: Chest X-Ray 12/18/19 12:13 IMPRESSION: No acute findings. Discharge Plan Discharge Patient Disposition: Home Clinical Impression: Anxiety Condition: Stable Prescriptions: New hydroxyzine HCl 25 mg tablet 25 mg PO Q4H PRN (Reason: anxiety) Qty: 30 RF: 0 No Action buspirone 5 mg tablet 5 mg PO BID Qty: 14 RF: 0 Discharge Orders: Discharge Order (Routine); Ordered 12/18/19 Ordered By: Chula Montero Referrals: [facility] [place] - BOUBACAR CHONG, [Staff Physician] - (You can also follow-up at the behavioral health clinic here in [place].) Discharge Diet: Advance as tolerated Discharge Activity: Increase activity as tolerated Patient Instructions: Anxiety (ED), Panic Attack Activity Restrictions/Additional Instructions: Please return to the ER immediately for any of the signs or symptoms listed on your discharge instruction sheets, worsening/changing of your symptoms, you are not getting better as quickly as expected, or for ANY other cause or concerns. Discharge Date/Time: 12/18/19 13:42 Coding Level of Care Code ED Health Policy Nurse for Chg Fwd Exam Comprehensive
[2019-12-18 12:27] LABS: Basophils # 0.1 10^3/uL (0.0-0.1); Basophils % 0.5 %; Eosinophils # 0.1 10^3/uL (0.0-0.8); Eosinophils % 0.9 %; Hemoglobin 16.6 g/dL (11.7-16.6); Lymphocytes # 2.2 10^3/uL (0.8-4.8); Lymphocytes % 20.4 %; Mean Corpuscular HGB Conc 33.2 g/dL (30.0-36.0); Mean Corpuscular Hemoglobin 28.2 pg (28.0-34.0); Mean Corpuscular Volume 84.9 fL (80-94); Mean Platelet Volume 10.2 fL (7.4-10.4); Monocytes # 0.8 10^3/uL (0.2-0.9); Monocytes % 7.4 %; Neutrophils # 7.48 10^3/uL (1.8-7.7); Neutrophils % 70.6 %; Nucleated Red Blood Cells % 0 %; Platelet Count 294 10^3/cmm (130-400); Red Blood Count 5.89 10^6/uL (4.1-5.3); Red Cell Distribution Width 14.4 % (12.1-15.1); White Blood Count 10.6 10^3/uL (4.0-10.0)
[2019-12-18] MEDS: ipratropium-albuterol 3 mL Neb INHALATION (12:29)
[2019-12-18 12:30] VITALS: PULSE 78; RESP 14; O2SAT 94
[2019-12-18 12:34] VITALS: PULSE 78
[2019-12-18] MEDS: diphenhydrAMINE 50 mg/mL SDV 1mL 25 MG IVP (12:34)
[2019-12-18] MEDS: sodium chloride 0.9% 1,000 ML 999 ML IV (12:38)
[2019-12-18 12:49] LABS: Alanine Aminotransferase 8 U/L (0-41); Albumin Level 4.6 g/dL (3.5-5.2); Alkaline Phosphatase 61 IU/L (40-130); Anion Gap 20.9 (5-19); Aspartate Amino Transferase 12 U/L (0-40); Blood Urea Nitrogen 18 mg/dL (6-20); Calcium 9.7 mg/dL (8.5-10.5); Carbon Dioxide 17 mmol/L (22-29); Chloride 103 mmol/L (98-107); Globulin 3.7 g/dL (1.3-4.6); Glomerular Filtration Rate 89.7 mL/min (90-130); Glucose 96 mg/dL (65-115); Magnesium 2.2 mg/dL (1.7-2.3); Osmolality Calculated 280 mOsm/kg (285-295); Potassium 3.9 mmol/L (3.5-5.1); Sodium 137 mmol/L (136-145); Total Bilirubin 0.8 mg/dL (0.15-1.2); Total Protein 8.3 g/dL (6.6-8.7)
[2019-12-18 13:20] LABS: Troponin T (5th) Once 11 ng/L (0-15)
[2019-12-18 13:41] VITALS: BP 163/76; PULSE 73; RESP 18; O2SAT 98
== END 2019-12-18 13:42 | disposition home or self-care (01) ==
PROVIDERS: Emergency Provider Emergency Medicine
DX: F41.9 Anxiety disorder, unspecified (principal); F17.210 Nicotine dependence, cigarettes, uncomplicated
CPT/HCPCS: 12345; 36415; 71045; 80053; 83735; 84484; 85025; 93005; 94640; 96361; 96374; 96375; 99282; 99283; J1200; J7030

== ENCOUNTER 2019-12-22 15:32 | Inpatient (IN) | payer SELFPAY ==
[2019-12-22 15:36] VITALS: BP 153/88; PULSE 108; RESP 18; TEMP 36.9; O2SAT 96; BMI 36.6
--- NOTE | 2019-12-22 15:37 | W.ED.PSYCH ---
HPI - Psych General: Chief Complaint: Psychiatric Symptoms Stated Complaint: SI Time Seen by Provider: 12/22/19 15:33 Source: patient and police Mode of arrival: other (police) Limitations: no limitations History of Present Illness: HPI Narrative: 49-year-old male who is here with police. Patient had brought them a gun and states that he is in the kill himself. Patient states he is suicidal. He is having hallucinations and believes that someone else is controlling him. Denies any recent suicide attempts. Associated symptoms: Reports auditory hallucinations and suicidal ideation Review of Systems Const: Denies: fever(s), chills, body aches or change in appetite Eyes: Denies: blurry vision or eye discomfort ENMT: Denies: throat pain or dental pain Card: Denies: chest pain Resp: Denies: dyspnea GI: Denies: abdominal pain, nausea, vomiting or diarrhea : Denies: dysuria Musc: Denies: neck pain or back pain Skin/Breast: Denies: rash Neuro: Denies: headache(s) Psych: Reports: paranoia, auditory hallucinations and suicidal ideation Olvin/Lymph: Denies: easy bruising All/Imm: Denies: urticaria PFS ED PFSH: Medical History (Updated 12/22/19 @ 16:24 by Dina Moore MD) Anxiety Social History Smoking and tobacco status: current every day smoker Physical Exam Const: COMMON NORMALS: no acute distress, patient oriented x3 and healthy appearing HENMT: COMMON NORMALS: normocephalic and atraumatic HEAD & SCALP: normocephalic and atraumatic Eye: COMMON NORMALS: Equal, round and reactive pupils present and EOMs intact bilaterally PUPIL: Yes Equal, round and reactive pupils present Neck/C-Spine: COMMON NORMALS: full ROM and supple Chest: COMMONS NORMALS: normal inspection of the chest and normal palpation of entire chest wall Resp: COMMON NORMALS: normal respiratory effort, No retractions, No use of accessory muscles and clear to auscultation bilaterally AUSCULTATION: clear to auscultation bilaterally Cardio: COMMON NORMALS: regular rate, regular rhythm and No murmurs present (Cardio) RATE: regular rate RHYTHM: regular rhythm GI: COMMON NORMALS: Normal to inspection, nondistended, normoactive bowel sounds present, Soft to palpation, non-tender and no masses PALPATION: Yes Soft to palpation Extremity: COMMON NORMALS: normal to inspection and full ROM Neuro: COMMON NORMALS: patient oriented x3, moves all extremities and no focal motor deficits Psych: COMMON NORMALS: mental status grossly normal ATTITUDE: Yes paranoid MOOD & AFFECT: Yes anxious THOUGHT CONTENT: Yes Suicidality present Skin: COMMON NORMALS: no rashes or lesions noted and no wounds GENERAL SKIN EXAM: no rashes or lesions noted MDM - Psych MDM Narrative: Medical decision making narrative: Ren presents here with suicidal ideation and chronic schizophrenia. Patient is under a 96-hour hold. He is medically cleared and I spoke to psychiatrist and will admit. Lab Data: Labs: Lab Results 12/22/19 12/22/19 12/22/19 Range/Units 15:46 15:54 15:54 WBC 10.1 H (4.0-10.0) 10^3/ uL RBC 5.65 H (4.1-5.3) 10^6/u L Hgb 16.4 (11.7-16.6) g/dL Hct 48.8 (42.0-52.0) % MCV 86.4 (80-94) fL MCH 29.0 (28.0-34.0) pg MCHC 33.6 (30.0-36.0) g/dL RDW 14.5 (12.1-15.1) % Plt Count 278 (130-400) 10^3/c mm MPV 10.8 H (7.4-10.4) fL Neut % (Auto) 63.6 % Lymph % (Auto) 26.6 % Sheridan % (Auto) 7.5 % Eos % (Auto) 1.5 % Baso % (Auto) 0.5 % Neut # (Auto) 6.43 (1.8-7.7) 10^3/u L Lymph # (Auto) 2.7 (0.8-4.8) 10^3/u L Sheridan # (Auto) 0.8 (0.2-0.9) 10^3/u L Eos # (Auto) 0.2 (0.0-0.8) 10^3/u L Baso # (Auto) 0.1 (0.0-0.1) 10^3/u L Nucleated RBC % (a uto) 0 % Nucleated RBCs # 0.0 /100WBC Sodium 137 (136-145) mmol/L Potassium 3.7 (3.5-5.1) mmol/L Chloride 104 (98-107) mmol/L Carbon Dioxide 18 L (22-29) mmol/L Anion Gap 18.7 (5-19) BUN 15 (6-20) mg/dL Creatinine 1.0 (0.7-1.2) mg/dL GFR Calculation 79.4 L (90-130) mL/min Glucose 129 H (65-115) mg/dL Calculated Osmolal ity 282 L (285-295) mOsm/k g Calcium 10.2 (8.5-10.5) mg/dL Total Bilirubin 0.5 (0.15-1.2) mg/dL AST 22 (0-40) U/L ALT 11 (0-41) U/L Alkaline Phosphata se 62 (40-130) IU/L Total Protein 8.1 (6.6-8.7) g/dL Albumin 4.6 (3.5-5.2) g/dL Globulin 3.5 (1.3-4.6) g/dL Salicylates 2.9 L (3-10) mg/dL Acetaminophen < 5.0 L (10-30) ug/mL Ur Barbiturates Sc reen Negative (Negative) ng/mL Ur Phencyclidine S crn Negative (Negative) ng/mL Ur Amphetamines Sc reen Negative (Negative) ng/mL U Benzodiazepines Scrn Negative (Negative) ng/mL Urine Cocaine Scre en Negative (Negative) ng/mL U Marijuana (THC) Screen Negative (Negative) ng/mL Ethyl Alcohol 17 H (0-10) mg/dL Discharge Plan Discharge Patient Disposition: Admitted As Inpatient Clinical Impression: Suicidal ideation, Chronic schizophrenia Condition: Stable Coding Level of Care Code ED Racking Technician for Vitaly Fwleonie Exam Comprehensive
[2019-12-22] MEDS: haloperidol inj 5 mg/mL INJ 1 mL IM (15:54)
[2019-12-22] MEDS: LORazepam 2 mg/mL INJ 1 mL IM (15:54)
[2019-12-22 16:12] LABS: Amphetamines Screen Urine Negative (Negative); Barbiturates Screen Urine Negative (Negative); Benzodiazepines Screen Urine Negative (Negative); Cocaine Screen Urine Negative (Negative); PCP Screen Urine Negative (Negative); THC Screen Urine Negative (Negative)
[2019-12-22 16:20] LABS: Alanine Aminotransferase 11 U/L (0-41); Albumin Level 4.6 g/dL (3.5-5.2); Alcohol Level 17 mg/dL (0-10); Alkaline Phosphatase 62 IU/L (40-130); Anion Gap 18.7 (5-19); Aspartate Amino Transferase 22 U/L (0-40); Basophils # 0.1 10^3/uL (0.0-0.1); Basophils % 0.5 %; Blood Urea Nitrogen 15 mg/dL (6-20); Calcium 10.2 mg/dL (8.5-10.5); Carbon Dioxide 18 mmol/L (22-29); Chloride 104 mmol/L (98-107); Eosinophils # 0.2 10^3/uL (0.0-0.8); Eosinophils % 1.5 %; Globulin 3.5 g/dL (1.3-4.6); Glomerular Filtration Rate 79.4 mL/min (90-130); Glucose 129 mg/dL (65-115); Hematocrit 48.8 % (42.0-52.0); Hemoglobin 16.4 g/dL (11.7-16.6); Lymphocytes # 2.7 10^3/uL (0.8-4.8); Lymphocytes % 26.6 %; Mean Corpuscular HGB Conc 33.6 g/dL (30.0-36.0); Mean Corpuscular Volume 86.4 fL (80-94); Mean Platelet Volume 10.8 fL (7.4-10.4); Monocytes # 0.8 10^3/uL (0.2-0.9); Monocytes % 7.5 %; Neutrophils # 6.43 10^3/uL (1.8-7.7); Neutrophils % 63.6 %; Nucleated Red Blood Cells % 0 %; Osmolality Calculated 282 mOsm/kg (285-295); Platelet Count 278 10^3/cmm (130-400); Potassium 3.7 mmol/L (3.5-5.1); Red Blood Count 5.65 10^6/uL (4.1-5.3); Red Cell Distribution Width 14.5 % (12.1-15.1); Salicylate 2.9 mg/dL (3-10); Sodium 137 mmol/L (136-145); Total Bilirubin 0.5 mg/dL (0.15-1.2); Total Protein 8.1 g/dL (6.6-8.7); White Blood Count 10.1 10^3/uL (4.0-10.0)
[2019-12-22 16:21] LABS: Acetaminophen < 5.0 ug/mL (10-30)
[2019-12-22 16:33] LABS: Opiate Screen Urine Negative (Negative)
[2019-12-22 18:20] VITALS: BP 117/66; PULSE 70; RESP 70; O2SAT 98
[2019-12-22] MEDS: trazodone 50 mg Tablet PO (21:17)
[2019-12-22] MEDS: hyDROXYzine 25 mg Capsule PO (21:19)
[2019-12-22 22:00] VITALS: BP 107/64; PULSE 59; RESP 14; TEMP 36.7; O2SAT 97
--- NOTE | 2019-12-22 22:30 | PC.NURSE ---
pt given prn vistaril and trazodone per pt request.
--- NOTE | 2019-12-23 02:54 | PC.NURSE ---
Patient has been sleeping since 1900 when I came on shift. He only woke up long enough to eat a snack and take his medications. He has been easy to interact with jose.
[2019-12-23 06:00] VITALS: BP 110/65; PULSE 51; RESP 15; TEMP 36.2; O2SAT 96
--- NOTE | 2019-12-23 06:28 | PC.NURSE ---
pt has slept well this night.
[2019-12-23] MEDS: BuSPIRONE 5 mg Tablet PO ×2 (08:56→17:32)
[2019-12-23 13:52] VITALS: BP 101/68; PULSE 77; RESP 18; TEMP 36.6; O2SAT 95
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
--- NOTE | 2019-12-23 15:19 | PC.RESP ---
Smoking Cessation information and a schedule of classes sent to patient.
[2019-12-23] MEDS: trazodone 50 mg Tablet PO (20:33)
[2019-12-23] MEDS: hyDROXYzine 25 mg Capsule PO (20:33)
[2019-12-23 22:00] VITALS: BP 129/83; PULSE 71; RESP 18; TEMP 36.5; O2SAT 96
--- NOTE | 2019-12-23 22:00 | PC.NURSE ---
PT GIVEN PRN TRAZODONE AND VISTARIL PER PT REQUEST.
[2019-12-24 06:00] VITALS: BP 114/60; PULSE 78; RESP 19; TEMP 36.6; O2SAT 97
[2019-12-24] MEDS: BuSPIRONE 5 mg Tablet PO ×2 (08:42→17:53)
[2019-12-24 14:00] VITALS: BP 95/65; PULSE 76; RESP 18; TEMP 36.8; O2SAT 96
--- NOTE | 2019-12-24 14:45 | PM.NPN ---
Subjective NPU Subjective: Interval history: Ren presents today reporting that he is not doing well on the medication. We had discussed extensively about how he had not followed through, and that may be part of what is going on. He continued this neck twitching that is seen some times and not seen at other times, and saying that the COVID chip is in his body and creating this situation. Then his came to visit, and he then came to the window asking when he was going to be discharged, and he said he is feeling okay. We discussed the risks, benefits, and alternatives of him leaving, given the situation with the gun and the police. He reports that he feels like he is going to go to [facility] for five years or so because of having a felony and having that gun as a felon. However, some of his stories have not quite panned out to be as large as he presents them, so we will need to follow up with that. We discussed the fact that until we saw that the medication was helping, given his situation with the COVID chip, that we would need to continue to monitor him on a hold. Mental Status Exam MSE Comments: This is an obese, short, white male, with adequate dress, grooming, and eye contact. No abnormal movement, except for psychomotor retardation, in addition to this hyper-agitated left head swing, almost like it was a tic. Cooperative with exam in no acute distress. Speech was normal rate and volume, but hard to understand as he kept swinging his head. Mood described as OK; affect congruent. Thought process, mostly organized. Thought content: patient denies suicidal ideation or homicidal ideation; he endorsed paranoia and bizarre delusions; he did endorse auditory hallucinations. Attention and concentration appeared intact, and memory appeared reliable, but none were formally tested. He is alert and oriented times three. Insight and judgment are impaired. Impulse control is impaired. Vitals/I&O/Wt Last Vital Signs Temp 98.0 F 12/24/19 21:00 Pulse 74 12/24/19 21:00 Resp 17 12/24/19 21:00 BP 137/79 12/24/19 21:00 Pulse Ox 95 12/24/19 21:00 Data NPU : 12/22/19 15:54 12/22/19 15:54 A&P Additional A&P Information (1) Suicidal ideation: (2) Chronic schizophrenia: (3) Anxiety: (4) Malingering: This is a 49 year old, white male, with a history of schizophrenia, anxiety, and previous substance abuse issues, who presents with suicidal ideation, a mildly elevated blood alcohol level at 17, endorsing odd delusions and being controlled by a chip. Continue current medication. Extent: Start lithium 300 mg by mouth twice a day. Encourage individual, group, and milieu therapy. Continue q-15 minute checks for safety. Recommend sober living treatment at the highest level of care to which the patient is willing to commit. Involuntary Hold Information 96 Hour Hold: 96 Hour Involuntary Admission: Yes 96 Hour Hold Ending Date: 12/27/19 96 Hour Hold Ending Time: 16:01 Attestations NPU Medical Necessity Statement*: Inpatient hospitalization is medically necessary and the clinically appropriate intervention, at this time. We will monitor medications and make changes as indicated. Likely length of stay is 3-5 days. Coding Level of Care Code Acute Granite Polisher Machine for Vitaly Scruggs
[2019-12-24] MEDS: lithium carbonate 300 mg Capsule PO (17:53)
[2019-12-24] MEDS: hyDROXYzine 25 mg Capsule 50 MG PO (20:25)
[2019-12-24] MEDS: trazodone 50 mg Tablet PO (20:26)
[2019-12-24 20:58] VITALS: BP 112/78; PULSE 112; RESP 17; TEMP 36.7; O2SAT 96
[2019-12-24 21:00] VITALS: BP 137/79; PULSE 74; RESP 17; TEMP 36.7; O2SAT 95
[2019-12-25] MEDS: lithium carbonate 300 mg Capsule PO ×2 (08:02→16:48)
[2019-12-25] MEDS: BuSPIRONE 5 mg Tablet PO ×2 (08:03→16:49)
[2019-12-25 14:00] VITALS: BP 112/76; PULSE 78; RESP 18; TEMP 36.7; O2SAT 95
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
[2019-12-25] MEDS: trazodone 50 mg Tablet PO (21:27)
[2019-12-25] MEDS: hyDROXYzine 25 mg Capsule PO (21:27)
[2019-12-25 21:47] VITALS: BP 115/71; PULSE 79; RESP 14; TEMP 36.7; O2SAT 96
[2019-12-26 06:00] VITALS: BP 132/74; PULSE 93; RESP 18; TEMP 36.4; O2SAT 96
[2019-12-26] MEDS: BuSPIRONE 5 mg Tablet PO (08:35)
[2019-12-26] MEDS: lithium carbonate 300 mg Capsule PO (08:35)
[2019-12-26 14:00] VITALS: BP 108/73; PULSE 70; RESP 18; TEMP 36.8; O2SAT 97
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
[2019-12-26 16:28] VITALS: BP 108/73; PULSE 70; RESP 18; TEMP 36.8; O2SAT 97
== END 2019-12-26 16:48 | disposition home or self-care (01) | DRG 885 ==
LOC: ER 16:24 → NP 17:54
PROVIDERS: Emergency Medicine; Admitting Provider Psychiatry & Neurology Psychiatry; Visit Provider Psychiatry & Neurology Psychiatry
DX: F20.9 Schizophrenia, unspecified (principal); R45.851 Suicidal ideations; F41.9 Anxiety disorder, unspecified; Z76.5 Malingerer [conscious simulation]; F17.210 Nicotine dependence, cigarettes, uncomplicated; F15.129 Other stimulant abuse with intoxication, unspecified
CPT/HCPCS: 12345; 36415; 80053; 80306; 80307; 85025; 96372; 99284; J1630; J2060

== ENCOUNTER 2020-01-06 18:01 | Emergency (ER) | payer SELFPAY ==
[2020-01-06 18:10] VITALS: PULSE 89; RESP 32; TEMP 36.7; O2SAT 94; BMI 36.6
[2020-01-06 18:26] VITALS: BP 156/113; PULSE 75; RESP 20; O2SAT 94
--- NOTE | 2020-01-06 18:37 | W.ED.SOB ---
HPI - SOB/Dyspnea General: Chief Complaint: Shortness of Breath/Dyspnea Stated Complaint: SOB Time Seen by Provider: 01/06/20 18:31 Source: patient Mode of arrival: ambulatory Limitations: no limitations History of Present Illness: HPI Narrative: 49-year-old male patient comes in with episodes of shortness of breath and coughing spells. Patient reports that he has been worked up quite a bit and has yet to be found a reason for these spells. Patient appears well. Patient appears in no acute distress. Patient has been able to calm down since coming to the ER. Review of Systems General: Reports: 10 or more systems reviewed and unremarkable except in HPI and below Resp: Reports: dyspnea (coughing spell) COUNTS INCLUDE 234 BEDS AT THE [facility] ED PFSH: Medical History (Updated 01/06/20 @ 20:11 by KENTRELL Melo) Anxiety Social History Smoking and tobacco status: current every day smoker Physical Exam Const: COMMON NORMALS: no acute distress and patient oriented x3 GENERAL APPEARANCE: cooperative HENMT: COMMON NORMALS: normocephalic and Normal external nose present HEAD & SCALP: normal to inspection and normocephalic NOSE: Normal external nose present MOUTH: Normal oral and palatal mucosa present THROAT: posterior oropharynx normal Eye: GENERAL EYE: appearance normal, both eyes and all related structures Neck/C-Spine: COMMON NORMALS: full ROM Chest: COMMONS NORMALS: normal inspection of the chest Resp: COMMON NORMALS: normal respiratory effort EFFORT & INSPECTION: Yes able to speak in complete sentences Cardio: COMMON NORMALS: regular rate and regular rhythm RATE: regular rate RHYTHM: regular rhythm GI: COMMON NORMALS: non-tender Back/Pelvis: COMMON NORMALS: thoracic and lumbar spine normal to inspection Extremity: COMMON NORMALS: normal to inspection Neuro: COMMON NORMALS: patient oriented x3 and moves all extremities Psych: COMMON NORMALS: mental status grossly normal and cooperative Skin: COMMON NORMALS: no rashes or lesions noted GENERAL SKIN EXAM: no rashes or lesions noted Course Vital Signs: Vital signs: Vital Signs Temperature 98.0 F 01/06/20 18:10 Pulse Rate 75 01/06/20 18:26 Respiratory Rate 20 H 01/06/20 18:26 Blood Pressure 156/113 01/06/20 18:26 Pulse Oximetry 94 01/06/20 18:26 MDM - SOB/Dyspnea MDM Narrative: Medical decision making narrative: Patient comes in today for complaints of drainage and difficulty getting his breath. Exam notes lungs are clear to auscultation. Vital signs are normal. Abdomen soft nontender. Skin is warm and dry. Differential diagnosis includes but not limited to anxiety reaction, reactive airway disease, malingering. Patient was given 2 mg of Ativan for anxiety. Patient was monitored and had improvement in overall symptoms. Suspect anxiety reaction although we should review and may be rule out reactive airway disease. Recommended follow-up with primary pulmonology for further testing. Patient was given a albuterol inhaler to use as needed for difficulty breathing. Also prescribed hydroxyzine 50 mg 3 times daily for anxiety breakthrough. Patient reported understanding of care plan and need for follow-up. Discharge Plan Discharge Patient Disposition: Home Clinical Impression: Anxiety, Reactive airway disease that is not asthma Condition: Stable Prescriptions: New albuterol sulfate 90 mcg/actuation HFA aerosol inhaler 1 inh INHALATION Q4H PRN (Reason: shortness of breath or wheezing) Qty: 8.5 RF: 0 hydroxyzine HCl 50 mg tablet 50 mg PO TID PRN (Reason: anxiety, throat discomfort) Qty: 30 RF: 0 No Action lithium carbonate 300 mg Capsule 300 mg PO BID 30 Days Qty: 60 RF: 1 buspirone 5 mg tablet 5 mg PO BID 30 Days Qty: 60 RF: 1 hydroxyzine HCl 25 mg tablet 25 mg PO Q4H PRN (Reason: anxiety) 30 Days Qty: 120 RF: 1 Discharge Orders: Discharge Order (Routine); Ordered 01/06/20 Ordered By: Rui Marin Discharge Diet: Usual diet Discharge Activity: Increase activity as tolerated Patient Instructions: Reactive Airways Disease (ED) Activity Restrictions/Additional Instructions: Home and rest. Avoid cigarette smoking. Drink plenty of water. Take medications as directed. Follow-up with primary care as needed. Case management will contact you regarding specialist appointment. Return to emergency department for new concerns. Coding Level of Care Code ED Dairy Grazer for Vitaly Scruggs Exam Comprehensive
[2020-01-06] MEDS: LORazepam 2 mg/mL INJ 1 mL IM (19:00)
[2020-01-06 20:00] VITALS: BP 123/75; PULSE 62; O2SAT 94
[2020-01-06 20:30] VITALS: BP 120/79; PULSE 72; RESP 16; O2SAT 94
--- NOTE | 2020-01-07 11:46 | DCPLANNER ---
hotel manager had message to schedule a follow up appointment for patient with pulmonology. hotel manager called [facility], spoke with Maria Teresa, gave clinic patients appointment information. A follow up appointment was scheduled for Monday, January 15, [address] at 2:[address] Almaraz. hotel manager called patient and gave patient the appointment information.
--- NOTE | 2020-01-18 16:33 | DCPLANNER ---
Patient had a follow up appointment scheduled for 01.15.20 with [facility] - patient did not attend appointment.
== END 2020-01-06 20:48 | disposition home or self-care (01) ==
PROVIDERS: Emergency Provider Nurse Practitioner Family
DX: F41.9 Anxiety disorder, unspecified (principal); R06.02 Shortness of breath; R05 Cough; F17.210 Nicotine dependence, cigarettes, uncomplicated
CPT/HCPCS: 12345; 96372; 99281; 99283; J2060

== ENCOUNTER 2020-01-10 16:01 | Emergency (ER) | payer SELFPAY ==
[2020-01-10 16:15] VITALS: BP 142/86; PULSE 71; RESP 22; O2SAT 95; BMI 28.3
[2020-01-10 16:21] LABS: Basophils # 0.1 10^3/uL (0.0-0.1); Basophils % 0.8 %; Eosinophils # 0.3 10^3/uL (0.0-0.8); Eosinophils % 2.8 %; Hematocrit 49.2 % (42.0-52.0); Hemoglobin 15.8 g/dL (11.7-16.6); Lymphocytes # 2.8 10^3/uL (0.8-4.8); Mean Corpuscular HGB Conc 32.1 g/dL (30.0-36.0); Mean Corpuscular Hemoglobin 28.6 pg (28.0-34.0); Mean Corpuscular Volume 89.1 fL (80-94); Mean Platelet Volume 9.9 fL (7.4-10.4); Monocytes # 0.8 10^3/uL (0.2-0.9); Neutrophils # 4.99 10^3/uL (1.8-7.7); Neutrophils % 56.3 %; Nucleated Red Blood Cells % 0 %; Platelet Count 323 10^3/cmm (130-400); Red Blood Count 5.52 10^6/uL (4.1-5.3); Red Cell Distribution Width 14.5 % (12.1-15.1); White Blood Count 8.9 10^3/uL (4.0-10.0)
[2020-01-10 16:33] LABS: Alanine Aminotransferase 9 U/L (0-41); Albumin Level 4.4 g/dL (3.5-5.2); Alkaline Phosphatase 70 IU/L (40-130); Aspartate Amino Transferase 13 U/L (0-40); Blood Urea Nitrogen 14 mg/dL (6-20); Calcium 10.1 mg/dL (8.5-10.5); Carbon Dioxide 25 mmol/L (22-29); Chloride 103 mmol/L (98-107); Globulin 3.1 g/dL (1.3-4.6); Glomerular Filtration Rate 79.4 mL/min (90-130); Glucose 93 mg/dL (65-115); Osmolality Calculated 288 mOsm/kg (285-295); Sodium 139 mmol/L (136-145); Total Bilirubin 0.3 mg/dL (0.15-1.2); Total Protein 7.5 g/dL (6.6-8.7)
[2020-01-10] MEDS: LORazepam 2 mg/mL INJ 1 mL IVP (16:42)
--- NOTE | 2020-01-10 16:45 | PC.NURSE ---
After administering Ativan patient reports physicians have not been able to find anything that stops convulsions, nothing seems to help, and that they have had to sedate him at times which works until he becomes alert again
--- NOTE | 2020-01-10 17:00 | ED_ITS ---
HPI - General Adult General: Chief complaint: General Medical Stated complaint: CANT CONTROL BODY Time Seen by Provider: 01/10/20 16:05 History of Present Illness: HPI narrative: This patient is a 49-year-old male presenting with the complaint of tics. He says that he has body movements that he cannot control. He has had these episodes before. He has been under a lot of stress as his is admitted to the hospital in [place] with probably end-stage cancer. He said the symptoms started while he was driving home from the hospital. He does not know what causes them. He said no ones ever really found anything that will stop them. He denies any other complaints at this time. Onset (ago): hour(s) (1) Associated symptoms: Deny chest pain, dyspnea, headache(s), malaise, nausea, rash or vomiting Review of Systems General: Reports: 10 or more systems reviewed and unremarkable except in HPI and below Const: Denies: fever(s), chills, fatigue or malaise Eyes: Denies: change in vision ENMT: Denies: odynophagia Card: Denies: chest pain or swelling of feet/ankles Resp: Denies: dyspnea, productive cough or non-productive cough GI: Denies: abdominal pain, nausea or vomiting : Denies: flank pain Musc: Denies: neck pain or back pain Skin/Breast: Denies: rash Neuro: Reports: involuntary movements; Denies: headache(s), numbness in extremities or weakness in extremities Olvin/Lymph: Denies: easy bruising or easy bleeding [facility] ED PFSH: Medical History (Updated 01/18/20 @ 00:02 by ) Anxiety Social History Smoking and tobacco status: current every day smoker Physical Exam Const: COMMON NORMALS: patient oriented x3, no limitations and alert GENERAL APPEARANCE: cooperative and anxious HENMT: HEAD & SCALP: normal to inspection FACE & SINUS: normal facial exam Eye: GENERAL EYE: appearance normal, both eyes and all related structures Neck/C-Spine: COMMON NORMALS: supple, no meningeal signs and no JVD Chest: COMMONS NORMALS: normal inspection of the chest Resp: COMMON NORMALS: normal respiratory effort, No use of accessory muscles and clear to auscultation bilaterally AUSCULTATION: clear to auscultation bilaterally Cardio: COMMON NORMALS: no JVD, regular rate, regular rhythm and No murmurs present (Cardio) RATE: regular rate RHYTHM: regular rhythm GI: COMMON NORMALS: Normal to inspection, nondistended, normoactive bowel sounds present, Soft to palpation and non-tender INSPECTION: Yes normal to inspection AUSCULTATION: Yes normoactive bowel sounds PALPATION: Yes Soft to palpation Back/Pelvis: COMMON NORMALS: thoracic and lumbar spine normal to inspection Extremity: COMMON NORMALS: normal to inspection Neuro: COMMON NORMALS: patient oriented x3, moves all extremities, no focal motor deficits and no sensory deficits noted SENSORIUM/ORIENTATION: Yes alert MENINGEAL SIGNS: Yes no meningeal signs GAIT: Yes Other gait observations present (Patient is having frequent movements of his trunk and head and neck. These become worse when he is asked questions or tries to do anything intentional.) Psych: COMMON NORMALS: mental status grossly normal, cooperative and normal affect Skin: COMMON NORMALS: no rashes or lesions noted and turgor normal GENERAL SKIN EXAM: no rashes or lesions noted and turgor normal Course ED course: This patient is under a significant amount of stress due to his 's significant and serious health problems. He admits that might be causing his worsening tics. I have seen him in the ER twice before with his and he did have some tics at that time but certainly not to the degree that he does now. Will check labs including a lithium level and try treating with Ativan. Reevaluation(s): Reevaluation #1: Patient felt somewhat better. I prescribed him some risperidone to hope to control his tics. He says he is not currently taking lithium which explains why his level was low. Encouraged outpatient follow-up. Vital Signs: Vital signs: Vital Signs Pulse Rate 71 01/10/20 16:15 Respiratory Rate 18 01/10/20 18:31 Blood Pressure 142/86 01/10/20 16:15 Pulse Oximetry 95 01/10/20 16:15 [facility] - General Adult Lab Data: Labs: Lab Results 01/10/20 01/10/20 01/10/20 Range/Units 16:10 16:10 16:10 WBC 8.9 (4.0-10.0) 10^3/ uL RBC 5.52 H (4.1-5.3) 10^6/u L Hgb 15.8 (11.7-16.6) g/dL Hct 49.2 (42.0-52.0) % MCV 89.1 (80-94) fL MCH 28.6 (28.0-34.0) pg MCHC 32.1 (30.0-36.0) g/dL RDW 14.5 (12.1-15.1) % Plt Count 323 (130-400) 10^3/c mm MPV 9.9 (7.4-10.4) fL Neut % (Auto) 56.3 % Lymph % (Auto) 31.0 % [place] % (Auto) 9.0 % Eos % (Auto) 2.8 % Baso % (Auto) 0.8 % Neut # (Auto) 4.99 (1.8-7.7) 10^3/u L Lymph # (Auto) 2.8 (0.8-4.8) 10^3/u L [place] # (Auto) 0.8 (0.2-0.9) 10^3/u L Eos # (Auto) 0.3 (0.0-0.8) 10^3/u L Baso # (Auto) 0.1 (0.0-0.1) 10^3/u L Nucleated RBC % (a uto) 0 % Nucleated RBCs # 0.0 /100WBC Sodium 139 (136-145) mmol/L Potassium 4.0 (3.5-5.1) mmol/L Chloride 103 (98-107) mmol/L Carbon Dioxide 25 (22-29) mmol/L Anion Gap 15.0 (5-19) BUN 14 (6-20) mg/dL Creatinine 1.0 (0.7-1.2) mg/dL GFR Calculation 79.4 L (90-130) mL/min Glucose 93 (65-115) mg/dL Calculated Osmolal ity 288 (285-295) mOsm/k g Calcium 10.1 (8.5-10.5) mg/dL Total Bilirubin 0.3 (0.15-1.2) mg/dL AST 13 (0-40) U/L ALT 9 (0-41) U/L Alkaline Phosphata se 70 (40-130) IU/L Total Protein 7.5 (6.6-8.7) g/dL Albumin 4.4 (3.5-5.2) g/dL Globulin 3.1 (1.3-4.6) g/dL [place] 0.1 L (0.6-1.2) mmol/L Discharge Plan Discharge Patient Disposition: Home Clinical Impression: Tic disorder, unspecified Condition: Stable Prescriptions: New risperidone 1 mg tablet 1 mg PO BID PRN (Reason: tic) Qty: 14 RF: 0 No Action albuterol sulfate 90 mcg/actuation HFA aerosol inhaler 1 inh INHALATION Q4H PRN (Reason: shortness of breath or wheezing) Qty: 8.5 RF: 0 hydroxyzine HCl 50 mg tablet 50 mg PO TID PRN (Reason: anxiety, throat discomfort) Qty: 30 RF: 0 lithium carbonate 300 mg Capsule 300 mg PO BID 30 Days Qty: 60 RF: 1 buspirone 5 mg tablet 5 mg PO BID 30 Days Qty: 60 RF: 1 hydroxyzine HCl 25 mg tablet 25 mg PO Q4H PRN (Reason: anxiety) 30 Days Qty: 120 RF: 1 Discharge Orders: Discharge Order (Routine); Ordered 01/10/20 Ordered By: Debi Byrnes Discharge Diet: Usual diet Discharge Activity: Resume usual activity Patient Instructions: Anxiety (ED) Activity Restrictions/Additional Instructions: Make sure to take your regular medications. If you have continued symptoms even when you are taking your regular medicines you can also take 1 risperidone as often as twice a day if you need to for uncontrollable tics. Follow-up with your doctor to discuss this medication change. Discharge Date/Time: 01/10/20 18:31 Coding Level of Care Code ED Basket Hand Braider for Vitaly Fwd Exam Comprehensive
[2020-01-10 17:44] LABS: Lithium 0.1 mmol/L (0.6-1.2)
[2020-01-10] MEDS: risperiDONE 1 mg Tablet PO (18:23)
[2020-01-10 18:31] VITALS: RESP 18
== END 2020-01-10 18:31 | disposition home or self-care (01) ==
PROVIDERS: Emergency Provider Emergency Medicine
DX: F95.9 Tic disorder, unspecified (principal); F17.210 Nicotine dependence, cigarettes, uncomplicated
CPT/HCPCS: 12345; 80053; 80178; 85025; 96374; 96375; 99282; 99283; J2060

== ENCOUNTER 2020-01-19 19:29 | Emergency (ER) | payer SELFPAY ==
[2020-01-19 19:32] VITALS: BP 121/73; PULSE 101; RESP 26; TEMP 36.2; O2SAT 100; BMI 36.6
--- NOTE | 2020-01-19 19:48 | W.ED.NECK ---
HPI - Neck Pain/Injury General: Chief Complaint: Neck Pain/Injury Stated Complaint: spasms Time Seen by Provider: 01/19/20 19:44 Source: patient Mode of arrival: ambulatory Limitations: no limitations History of Present Illness: HPI Narrative: 50-year-old male patient comes in with shaking of neck. Patient seems to be jerking his neck back and forth. This may be a tic but it is very exaggerated. Patient does have a history of tic disorder. And chronic schizophrenia. Patient recently lost his spouse due to throat cancer. Patient seems to be in distress due to the loss of his spouse. Patient denies suicidal or homicidal thoughts. Review of Systems General: Reports: 10 or more systems reviewed and unremarkable except in HPI and below Neuro: Reports: involuntary movements PFS ED PFSH: Medical History (Updated 01/19/20 @ 21:08 by KENTRELL Melo) Anxiety Social History Smoking and tobacco status: current every day smoker Physical Exam Const: COMMON NORMALS: no acute distress and patient oriented x3 GENERAL APPEARANCE: cooperative HENMT: COMMON NORMALS: normocephalic and Normal external nose present HEAD & SCALP: normal to inspection and normocephalic NOSE: Normal external nose present MOUTH: Normal oral and palatal mucosa present THROAT: posterior oropharynx normal Eye: GENERAL EYE: appearance normal, both eyes and all related structures Neck/C-Spine: COMMON NORMALS: full ROM Lymph: LYMPHATIC: no lymphadenopathy noted Chest: COMMONS NORMALS: normal inspection of the chest Resp: COMMON NORMALS: normal respiratory effort EFFORT & INSPECTION: Yes able to speak in complete sentences Cardio: COMMON NORMALS: regular rate and regular rhythm RATE: regular rate RHYTHM: regular rhythm GI: COMMON NORMALS: non-tender Back/Pelvis: COMMON NORMALS: thoracic and lumbar spine normal to inspection Extremity: COMMON NORMALS: normal to inspection Neuro: COMMON NORMALS: patient oriented x3 and moves all extremities Psych: COMMON NORMALS: mental status grossly normal and cooperative Skin: COMMON NORMALS: no rashes or lesions noted GENERAL SKIN EXAM: no rashes or lesions noted Course ED course: 2032, patient resting better, states some neck pain but states increased anxiety. wjw [id number], patient quietly sleeping, states feeling better, recommended f/u with pcp in am. wjw Vital Signs: Vital signs: Vital Signs Temperature 97.2 F L 01/19/20 19:32 Pulse Rate 101 H 01/19/20 19:32 Respiratory Rate 26 H 01/19/20 19:32 Blood Pressure 121/73 01/19/20 19:32 Pulse Oximetry 100 01/19/20 19:32 MDM - Neck Pain/Injury MDM Narrative: Medical decision making narrative: Patient presents with anxiety and jerking episodes of the neck. The episodes are very exaggerated. Patient recently lost his to cancer this morning. Patient denies any self-harm or suggestive harm of others. Patient has a history of a nervous tic. Patient also has history of schizophrenia. Patient does not take any routine medications. Patient is alert and oriented and responding appropriately to questioning. Differential diagnosis includes somatic disorder, tic disorder, malingering, acute anxiety. Reviewed exam with patient with recommendations for treatment and follow-up. Patient reports understanding agreed to plan. Discharge Plan Discharge Patient Disposition: Home Clinical Impression: Atypical tic disorder, Anxiety Condition: Stable Prescriptions: No Action albuterol sulfate 90 mcg/actuation HFA aerosol inhaler 1 inh INHALATION Q4H PRN (Reason: shortness of breath or wheezing) Qty: 8.5 RF: 0 hydroxyzine HCl 50 mg tablet 50 mg PO TID PRN (Reason: anxiety, throat discomfort) Qty: 30 RF: 0 risperidone 1 mg tablet 1 mg PO BID PRN (Reason: tic) Qty: 14 RF: 0 lithium carbonate 300 mg Capsule 300 mg PO BID 30 Days Qty: 60 RF: 1 buspirone 5 mg tablet 5 mg PO BID 30 Days Qty: 60 RF: 1 hydroxyzine HCl 25 mg tablet 25 mg PO Q4H PRN (Reason: anxiety) 30 Days Qty: 120 RF: 1 Discharge Orders: Discharge Order (Routine); Ordered 01/19/20 Ordered By: Rui Marin Discharge Diet: Usual diet Discharge Activity: Increase activity as tolerated Patient Instructions: Anxiety (ED) Activity Restrictions/Additional Instructions: Home and rest, Call primary care office in morning. Follow-up with behavioral health specialist. Return to ER for new concerns. Coding Level of Care Code ED Medical Radiation Tech for Vitaly Fwleonie Exam Comprehensive
[2020-01-19] MEDS: LORazepam 2 mg/mL INJ 1 mL IM (20:04)
[2020-01-19] MEDS: ziprasidone 20 mg/mL SDV 10 MG IM (20:48)
[2020-01-19] MEDS: ketorolac 30 mg/mL INJ IM (20:48)
[2020-01-19 21:22] VITALS: BP 121/86; PULSE 92; RESP 14; O2SAT 95
== END 2020-01-19 21:22 | disposition home or self-care (01) ==
PROVIDERS: Emergency Provider Nurse Practitioner Family
DX: F95.8 Other tic disorders (principal); F41.9 Anxiety disorder, unspecified; F17.210 Nicotine dependence, cigarettes, uncomplicated
CPT/HCPCS: 12345; 96372; 99281; 99283; J1885; J2060; J3486

== ENCOUNTER 2020-01-21 22:12 | Emergency (ER) | payer SELFPAY ==
[2020-01-21 22:18] VITALS: PULSE 92; RESP 18; TEMP 36.5; O2SAT 95; BMI 36.6
--- NOTE | 2020-01-21 22:58 | ED_ITS ---
HPI - Psych General: Chief Complaint: Psychiatric Symptoms Stated Complaint: NECK PAIN, DIZZY, SOB Time Seen by Provider: 01/21/20 22:58 History of Present Illness: HPI Narrative: Patient is a 50-year-old male who comes to the ED with uncontrolled movements of head. He has been seen here in the ED for similar symptoms. Patient says he has had the symptoms in the past and they inject him with a med and his symptoms improve. Symptoms started a couple hours ago. He has no idea of what makes it better and is unaware of anything that makes it worse. Patient said he has not been taking any of his medications. Denies any other symptom. Denies SI or HI. Review of Systems Const: Denies: fever(s), chills or fatigue Eyes: Denies: change in vision or eye discomfort ENMT: Denies: throat pain, odynophagia, nasal discharge or nasal congestion Card: Denies: chest pain, palpitations, edema, swelling of feet/ankles, dyspnea on exertion or orthopnea Resp: Denies: dyspnea, productive cough or non-productive cough GI: Denies: abdominal pain, nausea, vomiting, diarrhea, constipation or hematochezia : Denies: flank pain, difficulty urinating, dysuria or hematuria Musc: Denies: neck pain, back pain or extremity swelling Skin/Breast: Denies: rash or new lesions Neuro: Reports: involuntary movements (of head); Denies: headache(s), numbness in extremities or weakness in extremities [facility] ED PFSH: Medical History Anxiety Social History Smoking and tobacco status: current every day smoker Physical Exam Const: COMMON NORMALS: no acute distress, patient oriented x3 and alert GENERAL APPEARANCE: cooperative and comfortable HENMT: COMMON NORMALS: normocephalic HEAD & SCALP: normocephalic MOUTH: Normal oral and palatal mucosa present THROAT: posterior oropharynx normal and uvula midline Eye: COMMON NORMALS: Equal, round and reactive pupils present PUPIL: Yes Equal, round and reactive pupils present Neck/C-Spine: COMMON NORMALS: supple GENERAL: Yes normal visual inspection Resp: COMMON NORMALS: normal respiratory effort, No retractions, No use of accessory muscles and clear to auscultation bilaterally AUSCULTATION: clear to auscultation bilaterally Cardio: COMMON NORMALS: regular rate, regular rhythm, S1 normal heart sound present, S2 normal heart sound present, No gallops present (Cardio), No clicks present (Cardio), No murmurs present (Cardio) and Peripheral pulses 2+ throughout RATE: regular rate RHYTHM: regular rhythm HEART SOUNDS: S1 normal heart sound present and S2 normal heart sound present PERIPHERAL PULSES: Peripheral pulses 2+ throughout GI: COMMON NORMALS: Normal to inspection, nondistended, normoactive bowel sounds present, Soft to palpation, non-tender and no masses PALPATION: Yes Soft to palpation : COMMON NORMALS: Yes no CVA tenderness BLADDER/KIDNEY EXAM: Yes no CVA tenderness Back/Pelvis: COMMON NORMALS: no CVA tenderness Extremity: COMMON NORMALS: normal to inspection and no pedal edema Neuro: COMMON NORMALS: patient oriented x3 and moves all extremities SENSORIUM/ORIENTATION: Yes alert OTHER: When I first entered the room patient was in having any uncontrolled jerking head movements, and then as soon as he saw me his head started moving from side to side. Psych: COMMON NORMALS: mental status grossly normal, speech normal, denies homicidal ideation and denies suicidal ideation SPEECH: Yes normal speech Skin: GENERAL SKIN EXAM: dry skin MDM - Psych MDM Narrative: Medical decision making narrative: Patient is a 50-year-old male comes to the ED with involuntary movements. He has been seen here previously for same complaint. Patient was given a dose of Ativan and involuntary movements improved. Was then given IM Toradol for neck muscle pain. Discharged and told to follow-up with PCP in 7 to 10 days. Return to ED precautions given. Patient understood and agreed with plan. Discharge Plan Discharge Patient Disposition: Home Clinical Impression: Atypical tic disorder Condition: Stable Prescriptions: New Robaxin-750 750 mg tablet 750 mg PO Q8H Qty: 15 RF: 0 No Action albuterol sulfate 90 mcg/actuation HFA aerosol inhaler 1 inh INHALATION Q4H PRN (Reason: shortness of breath or wheezing) Qty: 8.5 RF: 0 hydroxyzine HCl 50 mg tablet 50 mg PO TID PRN (Reason: anxiety, throat discomfort) Qty: 30 RF: 0 risperidone 1 mg tablet 1 mg PO BID PRN (Reason: tic) Qty: 14 RF: 0 lithium carbonate 300 mg Capsule 300 mg PO BID 30 Days Qty: 60 RF: 1 buspirone 5 mg tablet 5 mg PO BID 30 Days Qty: 60 RF: 1 hydroxyzine HCl 25 mg tablet 25 mg PO Q4H PRN (Reason: anxiety) 30 Days Qty: 120 RF: 1 Discharge Orders: Discharge Order (Routine); Ordered 01/22/20 Ordered By: Ren Siddiqui Referrals: Datar,Stephen Hall MD [Physician] - 02/10/20 11:00 am Discharge Diet: Regular Discharge Activity: Resume usual activity Activity Restrictions/Additional Instructions: Follow-up with medical provider as directed. Take medications as prescribed. Sending you home with a prescription for Robaxin which is a muscle relaxer. Take muscle relaxer at night because it can cause some drowsiness. Use with caution during the day due to its drowsiness side effects. Take [id number] ibuprofen for pain. Return to the ER or your medical provider if condition worsens. Please read and understand discharge instructions. If any questions, please ask. Discharge Date/Time: 01/22/20 00:36 Coding Level of Care Code ED Luster Applicator for Vitaly Fwd Exam Comprehensive
[2020-01-21] MEDS: LORazepam 2 mg/mL INJ 1 mL IM (23:45)
[2020-01-22 00:30] VITALS: BP 118/67; PULSE 71; RESP 18; O2SAT 96
[2020-01-22] MEDS: ketorolac 60 mg/2 mL INJ IM (00:32)
== END 2020-01-22 00:36 | disposition home or self-care (01) ==
PROVIDERS: Emergency Provider Physician Assistant
DX: F95.8 Other tic disorders (principal); F17.210 Nicotine dependence, cigarettes, uncomplicated
CPT/HCPCS: 12345; 96372; 99281; 99283; J1885; J2060

== ENCOUNTER 2020-01-24 12:47 | Emergency (ER) | payer SELFPAY ==
[2020-01-24 13:13] VITALS: PULSE 88; RESP 25; TEMP 36.9; O2SAT 98
--- NOTE | 2020-01-24 13:19 | PC.NURSE ---
pt will not stop purposeful movements while attempting to take BP in triage. Triage nurse attempted BP reading multiple times.
[2020-01-24 13:21] VITALS: O2SAT 98
--- NOTE | 2020-01-24 13:36 | W.ED.PSYCH ---
HPI - Psych General: Chief Complaint: Psychiatric Symptoms Stated Complaint: body won't stop moving Time Seen by Provider: 01/24/20 13:36 History of Present Illness: HPI Narrative: I evaluated patient in triage. Patient states that he was feeling short of breath and having some minor techs being on his vehicle he said the tics got worse he is able to drive anything we ride waiting room his involuntary movements become really bad he states . this is his usual agitation. complaint: other (States he has involuntary tics, unable controlled movement of his head and arms he says he had he was able to drive in here says he has a cough) Onset (ago): year(s) Duration: intermittent History of same: Yes Relieving factors: none Exacerbating factors: none Associated psychiatric symptoms: none Associated symptoms: Reports no associated symptoms; Deny depression Treatments prior to arrival: none Review of Systems Const: Denies: fever(s), chills or body aches Eyes: Denies: change in vision or blurry vision ENMT: Denies: throat pain or nasal congestion Card: Denies: chest pain or dyspnea on exertion Resp: Reports: dyspnea; Denies: productive cough or non-productive cough GI: Denies: abdominal pain, nausea or vomiting : Denies: difficulty urinating Musc: Reports: other (Involuntary motor movements head neck and arms he states his happens intermittently); Denies: extremity pain Skin/Breast: Denies: rash Neuro: Denies: headache(s) Psych: Denies: anxiety or depression Olvin/Lymph: Denies: easy bruising PFS ED PFSH: Medical History Anxiety Social History (Updated 01/24/20 @ 13:19 by Ash Jiang RN) Smoking and tobacco status: heavy tobacco smoker Alcohol intake: never Substance/Drug Use: never Physical Exam Const: COMMON NORMALS: no acute distress, average body habitus and patient oriented x3 HENMT: COMMON NORMALS: normocephalic HEAD & SCALP: normal to inspection and normocephalic FACE & SINUS: normal facial exam Eye: COMMON NORMALS: conjunctivae normal GENERAL EYE: appearance normal, both eyes and all related structures CONJUNCTIVA: Yes conjunctivae normal Neck/C-Spine: COMMON NORMALS: no JVD Chest: COMMONS NORMALS: normal inspection of the chest Resp: COMMON NORMALS: normal respiratory effort and clear to auscultation bilaterally (No obvious shortness of breath or increased respiratory effort does have dry cough) AUSCULTATION: clear to auscultation bilaterally (No obvious shortness of breath or increased respiratory effort does have dry cough) Cardio: COMMON NORMALS: no JVD, regular rate and regular rhythm RATE: regular rate RHYTHM: regular rhythm GI: COMMON NORMALS: Normal to inspection, nondistended, normoactive bowel sounds present Extremity: COMMON NORMALS: normal to inspection and full ROM Neuro: COMMON NORMALS: patient oriented x3 OTHER: Is obvious patient cannot control his motor movements he is able to stop and focus his eyes on me when I talk to him when when 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 When I talked about that I did not feel it safe from driving he continue to have these motor movements he stopped and talk to me about then he started his movements have again said he needs some Ativan to stop these movements and said medications he is presently on are not helping. 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 Patient states he is able to drive in with these anyway but based on his presentation in the waiting room and how he is acting I do not believe he would be safe for others and deafly not safe for himself because it in the waiting room he cannot control his movements and he states this is so but he does not want his regional driver's license suspended Discharge Plan Discharge Prescriptions: No Action albuterol sulfate 90 mcg/actuation HFA aerosol inhaler 1 inh INHALATION Q4H PRN (Reason: shortness of breath or wheezing) Qty: 8.5 RF: 0 hydroxyzine HCl 50 mg tablet 50 mg PO TID PRN (Reason: anxiety, throat discomfort) Qty: 30 RF: 0 risperidone 1 mg tablet 1 mg PO BID PRN (Reason: tic) Qty: 14 RF: 0 Robaxin-750 750 mg tablet 750 mg PO Q8H Qty: 15 RF: 0 lithium carbonate 300 mg Capsule 300 mg PO BID 30 Days Qty: 60 RF: 1 buspirone 5 mg tablet 5 mg PO BID 30 Days Qty: 60 RF: 1 hydroxyzine HCl 25 mg tablet 25 mg PO Q4H PRN (Reason: anxiety) 30 Days Qty: 120 RF: 1 Coding Level of Care Code ED Receiver Setter for Vitaly Fwd Exam Comprehensive
--- NOTE | 2020-01-24 13:49 | XR_ITS ---
WS: [id number] PORTABLE CHEST HISTORY: cough COMPARISON: 12/18/2019 Lungs are clear and well expanded. No pleural effusion or pneumothorax. Cardiac size: Normal. Mediastinum/Aorta: Normal mediastinum. No osseous abnormality seen. XR/XR chest 1V portable [id number] IMPRESSION: Unremarkable portable chest.
== END 2020-01-24 15:24 | disposition home or self-care (01) ==
PROVIDERS: Emergency Provider Nurse Practitioner Family
DX: F95.9 Tic disorder, unspecified (principal); F17.210 Nicotine dependence, cigarettes, uncomplicated
CPT/HCPCS: 12345; 71045; 99281; 99282

== ENCOUNTER 2020-01-24 17:35 | Emergency (ER) | payer SELFPAY ==
[2020-01-24 18:17] VITALS: BP 107/80; PULSE 92; RESP 25; TEMP 36.6; O2SAT 97; BMI 36.6
[2020-01-24] MEDS: haloperidol inj 5 mg/mL INJ 1 mL IM (20:44)
[2020-01-24 21:39] VITALS: BP 118/87; PULSE 101; RESP 16; O2SAT 98
[2020-01-24] MEDS: benztropine 1 mg/mL SDV 2 mL IM (21:54)
[2020-01-24] MEDS: LORazepam 2 mg/mL INJ 1 mL IM (21:54)
[2020-01-24] MEDS: dexamethasone 10 mg/mL INJ IM (21:54)
--- NOTE | 2020-01-24 22:01 | W.ED.PSYCH ---
HPI - Psych General: Chief Complaint: Psychiatric Symptoms Stated Complaint: hyperventilated-NOW RESOLVED Time Seen by Provider: 01/24/20 20:12 History of Present Illness: HPI Narrative: 50-year-old male, this is his fifth visit in as many days. He presents again today stating he is having trouble breathing. He coughs incessantly in the room, a forced cough. This seems somewhat exaggerated. He has no fever. No sputum production. No noted COVID contacts. He states he was here earlier, and had an x-ray. MD complaint: other Onset (ago): hour(s) Duration: constant History of same: Yes Relieving factors: none Exacerbating factors: none Associated psychiatric symptoms: other (He has a history of a tic disorder, and shakes his head incessantly in the room.) Review of Systems Const: Denies: fever(s) or chills Eyes: Denies: change in vision or blurry vision ENMT: Denies: swelling of lips/tongue, bleeding gums, dental pain, change in hearing, epistaxis, post nasal drip or sinus pain Card: Denies: chest pain, palpitations or irregular heart rhythm Resp: Reports: dyspnea and non-productive cough; Denies: productive cough or wheezing GI: Denies: abdominal pain, nausea or vomiting : Denies: difficulty urinating or hematuria Musc: Denies: neck pain or joint warmth Skin/Breast: Denies: rash or erythema Neuro: Denies: headache(s), dizziness or vertigo Psych: Denies: anxiety [facility] ED PFSH: Medical History (Updated 01/24/20 @ 22:07 by Zbigniew Sahni DO) Anxiety Social History (Updated 01/24/20 @ 13:19 by Ash Jiang RN) Smoking and tobacco status: heavy tobacco smoker Alcohol intake: never Physical Exam Const: GENERAL APPEARANCE: anxious and other (strange) ORIENTATION/CONSCIOUSNESS: Yes oriented to person, Yes oriented to place and Yes oriented to time HENMT: COMMON NORMALS: normocephalic, external ears normal and Normal external nose present HEAD & SCALP: normocephalic; no scalp tenderness FACE & SINUS: normal facial exam NOSE: Normal external nose present and No nasal discharge present EXTERNAL EAR: Yes external ears normal MOUTH: tongue normal TEETH & GINGIVA: no abnormal tooth and associated gingiva THROAT: abnormal tonsil bilateral erythema and hypertrophy; no exudates; no peritonsillar mass Eye: COMMON NORMALS: Equal, round and reactive pupils present, EOMs intact bilaterally and conjunctivae normal EYELID: eyelids normal CONJUNCTIVA: Yes conjunctivae normal PUPIL: Yes Equal, round and reactive pupils present Neck/C-Spine: COMMON NORMALS: full ROM GENERAL: No tracheal deviation CERVICAL SPINE: Yes normal cervical lordosis Chest: COMMONS NORMALS: normal inspection of the chest CHEST: No tenderness Resp: COMMON NORMALS: clear to auscultation bilaterally EFFORT & INSPECTION: No tachypneic, No respiratory distress, No retractions, No uses accessory muscles and No tracheal deviation AUSCULTATION: clear to auscultation bilaterally, no rhonchi, no wheezes and lung sounds not diminished Cardio: COMMON NORMALS: regular rate and regular rhythm RATE: regular rate RHYTHM: regular rhythm HEART SOUNDS: no murmurs PERIPHERAL PULSES: radial pulses present GI: INSPECTION: No abdominal distension AUSCULTATION: No Hyperactive bowel sounds present and No Hypoactive bowel sounds present PALPATION: No Guarding due to palpation present (GI) and No Rigid due to palpation PERCUSSION: no dullness to percussion and no tympanic to percussion : COMMON NORMALS: Yes no CVA tenderness BLADDER/KIDNEY EXAM: Yes no CVA tenderness Back/Pelvis: COMMON NORMALS: no CVA tenderness Neuro: SENSORIUM/ORIENTATION: Yes oriented to person, Yes oriented to place and Yes oriented to time Skin: COMMON NORMALS: no rashes or lesions noted GENERAL SKIN EXAM: no rashes or lesions noted MDM - Psych MDM Narrative: Medical decision making narrative: 50-year-old strange male well-known to the ER. He is quite anxious in the room, throwing his head around, and coughing. His cough is very forced. He was warned that he may lacerate his larynx if he continues to force a cough like this. His chest x-ray from earlier is normal. His saturations are 98 to 100% on room air without tachypnea or true respiratory distress. He was given IM Haldol which did not seem to help his symptoms. Interestingly, when he was told he was getting IM Ativan, his cough immediately ceased, and so did his movements, and this was before the medication was given. He also received a milligram of Cogentin, and some dexamethasone for his swollen tonsils. He will be diagnosed with tonsillitis, and discharged home. I recommend we not give this patient benzodiazepines further, as I am concerned about malingering. Discharge Plan Discharge Patient Disposition: Home Clinical Impression: Anxiety, Acute erythematous tonsillitis Condition: Stable Prescriptions: No Action albuterol sulfate 90 mcg/actuation HFA aerosol inhaler 1 inh INHALATION Q4H PRN (Reason: shortness of breath or wheezing) Qty: 8.5 RF: 0 hydroxyzine HCl 50 mg tablet 50 mg PO TID PRN (Reason: anxiety, throat discomfort) Qty: 30 RF: 0 risperidone 1 mg tablet 1 mg PO BID PRN (Reason: tic) Qty: 14 RF: 0 Robaxin-750 750 mg tablet 750 mg PO Q8H Qty: 15 RF: 0 lithium carbonate 300 mg Capsule 300 mg PO BID 30 Days Qty: 60 RF: 1 buspirone 5 mg tablet 5 mg PO BID 30 Days Qty: 60 RF: 1 hydroxyzine HCl 25 mg tablet 25 mg PO Q4H PRN (Reason: anxiety) 30 Days Qty: 120 RF: 1 Zithromax Z-Samir 250 mg tablet See Rx Instructions .ROUTE .COMPLEX Qty: 6 RF: 0 Discharge Orders: Discharge Order (Routine); Ordered 01/24/20 Ordered By: Zbigniew Sahni Discharge Diet: Advance as tolerated Discharge Activity: Increase activity as tolerated Patient Instructions: Tonsillitis (ED), Anxiety (ED) Activity Restrictions/Additional Instructions: You have tested for coronavirus. You have been given treatment for your tonsillitis. You should quarantine at home for the next 10 to 14 days, or until you hear back about your COVID-19 test. You must follow-up with your doctor regarding any continued treatment. Discharge Date/Time: 01/24/20 22:14 Coding Level of Care Code ED Medical Services Assistant for Vitaly Fwd Exam Comprehensive
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
[2020-01-24 22:13] VITALS: PULSE 82; RESP 16; O2SAT 96
[2020-01-27 10:37] LABS: Quest SARS-CoV-2 RNA NOT DETECTED (NOT DETECTED)
--- NOTE | 2020-01-28 16:20 | PC.NURSE ---
Pt came in to ED for evaluation on 01/28/20, notified of negative COVID result, instructed that he needs to update his phone number in the system.
== END 2020-01-24 22:14 | disposition home or self-care (01) ==
PROVIDERS: Emergency Provider Emergency Medicine
DX: F41.9 Anxiety disorder, unspecified (principal); J03.80 Acute tonsillitis due to other specified organisms; F17.210 Nicotine dependence, cigarettes, uncomplicated
CPT/HCPCS: 12345; 87635; 96372; 99284; J0515; J1100; J1630; J2060

== ENCOUNTER 2020-01-28 15:28 | Inpatient (IN) | payer SELFPAY ==
[2020-01-28 15:30] VITALS: BP 120/79; PULSE 90; RESP 18; TEMP 36.4; O2SAT 96; BMI 27.4
--- NOTE | 2020-01-28 16:06 | W.ED.PSYCH ---
Documented by User: Matthew Villarreal DO 02/03/20 08:17 HPI - Psych General: Chief Complaint: Psychiatric Symptoms Stated Complaint: mhe Time Seen by Provider: 01/28/20 15:54 History of Present Illness: HPI Narrative: 50 yo male present with suicidal Danish. He is requesting to be admitted to the mental health unit. He states he is depressed and anxious. He recently lost his to cancer he has been despondent and has plans to harm himself he vocalizes several different options which she is considered including shooting himself hanging himself or cutting his wrist with a razor blade. His just recently on January 18 per his report. He has a history of schizophrenia. He could not independently verify his report of his dying he says it was from ovarian cancer, although there are other other reports in his record mentioning his 's illness and the stresses it places on him that are consistent with this. MD complaint: suicidal ideation and feels depressed Onset (ago): day(s) Duration: constant History of same: Yes Relieving factors: none Exacerbating factors: none Context: significant life stressor Associated psychiatric symptoms: depression, suicidal ideation and racing thoughts Associated symptoms: Reports depression and suicidal ideation; Deny auditory hallucinations, visual hallucinations, delusions, homicidal ideation or racing thoughts If self harm: admits thoughts of self harm and has plan Review of Systems Const: Denies: fever(s), chills, body aches, change in appetite, fatigue or malaise ENMT: Denies: throat pain, ear or mastoid pain, nasal discharge or nasal congestion Card: Denies: chest pain, edema, dyspnea on exertion or orthopnea Resp: Denies: dyspnea, productive cough or non-productive cough GI: Denies: abdominal pain, nausea, vomiting, hematemesis, coffee ground emesis, diarrhea, constipation, bloating, hematochezia or melena : Denies: flank pain, dysuria, urinary frequency or urinary urgency Skin/Breast: Denies: rash or pruritus Psych: Reports: depression and suicidal ideation; Denies: visual hallucinations, auditory hallucinations or homicidal ideation PFSH ED PFSH: Medical History Anxiety Social History (Reviewed 10/20/20 @ 16:26 by VIRAJ Pabon Smoking and tobacco status: heavy tobacco smoker Alcohol intake: never Physical Exam Const: COMMON NORMALS: no acute distress GENERAL APPEARANCE: cooperative and comfortable ORIENTATION/CONSCIOUSNESS: Yes awake, Yes oriented to person, Yes oriented to place and Yes oriented to time HENMT: COMMON NORMALS: normocephalic, atraumatic and hearing grossly normal bilaterally HEAD & SCALP: normocephalic and atraumatic Neck/C-Spine: COMMON NORMALS: full ROM, no lymphadenopathy, supple and no JVD Resp: COMMON NORMALS: normal respiratory effort, No retractions, No use of accessory muscles and clear to auscultation bilaterally AUSCULTATION: clear to auscultation bilaterally Cardio: COMMON NORMALS: no JVD, regular rate, regular rhythm and No murmurs present (Cardio) RATE: regular rate RHYTHM: regular rhythm GI: COMMON NORMALS: Soft to palpation and No hepatosplenomegaly present AUSCULTATION: Yes normoactive bowel sounds PALPATION: Yes Soft to palpation, No Tenderness to palpation present (GI), No Guarding due to palpation present (GI) and Yes No hepatosplenomegaly present Extremity: COMMON NORMALS: normal to inspection, capillary refill normal, no clubbing, cyanosis or edema, no calf tenderness and no pedal edema Neuro: SENSORIUM/ORIENTATION: Yes oriented to person, Yes oriented to place and Yes oriented to time Psych: THOUGHT CONTENT: No delusions Skin: COMMON NORMALS: no rashes or lesions noted GENERAL SKIN EXAM: no rashes or lesions noted MDM - Psych MDM Narrative: Medical decision making narrative: Anticipate admission, discussed with Dr. Moore care transferred to change of shift see his note for definitive diagnosis and disposition Lab Data: Labs: Lab Results 01/28/20 01/28/20 01/28/20 Range/Units 16:12 16:12 16:20 WBC 10.9 H (4.0-10.0) 10^3/ uL RBC 5.41 H (4.1-5.3) 10^6/u L Hgb 15.5 (11.7-16.6) g/dL Hct 46.5 (42.0-52.0) % MCV 86.0 (80-94) fL MCH 28.7 (28.0-34.0) pg MCHC 33.3 (30.0-36.0) g/dL RDW 14.4 (12.1-15.1) % Plt Count 360 (130-400) 10^3/c mm MPV 9.8 (7.4-10.4) fL Neut % (Auto) 62.5 % Lymph % (Auto) 27.1 % [place] % (Auto) 7.6 % Eos % (Auto) 2.1 % Baso % (Auto) 0.4 % Neut # (Auto) 6.80 (1.8-7.7) 10^3/u L Lymph # (Auto) 2.9 (0.8-4.8) 10^3/u L [place] # (Auto) 0.8 (0.2-0.9) 10^3/u L Eos # (Auto) 0.2 (0.0-0.8) 10^3/u L Baso # (Auto) 0.0 (0.0-0.1) 10^3/u L Nucleated RBC % (a uto) 0 % Nucleated RBCs # 0.0 /100WBC Sodium 137 (136-145) mmol/L Potassium 3.7 (3.5-5.1) mmol/L Chloride 104 (98-107) mmol/L Carbon Dioxide 21 L (22-29) mmol/L Anion Gap 15.7 (5-19) BUN 17 (6-20) mg/dL Creatinine 0.9 (0.7-1.2) mg/dL GFR Calculation 89.3 L (90-130) mL/min Glucose 118 H (65-115) mg/dL Calculated Osmolal ity 287 (285-295) mOsm/k g Calcium 10.6 H (8.5-10.5) mg/dL Total Bilirubin 0.3 (0.15-1.2) mg/dL AST 11 (0-40) U/L ALT 12 (0-41) U/L Alkaline Phosphata se 79 (40-130) IU/L Total Protein 7.5 (6.6-8.7) g/dL Albumin 4.3 (3.5-5.2) g/dL Globulin 3.2 (1.3-4.6) g/dL Urine Color Yellow (Yellow) Urine Appearance Clear (CLEAR) Urine pH 5.0 (5-7) Ur Specific Gravit y 1.030 (1.005-1.030) Urine Protein Trace (Negative) Urine Glucose (UA) Norm (Normal) Urine Ketones Negative (Negative) Urine Blood 3+ H (Negative) Urine Nitrate Negative (Negative) Urine Bilirubin Neg (Negative) Urine Urobilinogen Norm (Negative) mg/dL Ur Leukocyte Remedios ase Trace H (Negative) Urine RBC 80-100 H (0-2) /hpf Urine WBC 25-40 H (0-5) /hpf Ur Squamous Epith Cells 0-4 H (0-5) /hpf Amorphous Sediment Not Reportable Urine Bacteria Trace (NONE) /hpf Urine Mucus 2+ /hpf Salicylates < 0.3 L (3-10) mg/dL Urine Opiates Scre en (Negative) ng/mL Acetaminophen < 5.0 L (10-30) ug/mL Ur Barbiturates Sc reen (Negative) ng/mL Ur Phencyclidine S crn (Negative) ng/mL Ur Amphetamines Sc reen (Negative) ng/mL U Benzodiazepines Scrn (Negative) ng/mL Urine Cocaine Scre en (Negative) ng/mL U Marijuana (THC) Screen (Negative) ng/mL Ethyl Alcohol < 10 (0-10) mg/dL 10/20/20 Range/Units 16:20 WBC (4.0-10.0) 10^3/ uL RBC (4.1-5.3) 10^6/u L Hgb (11.7-16.6) g/dL Hct (42.0-52.0) % MCV (80-94) fL MCH (28.0-34.0) pg MCHC (30.0-36.0) g/dL RDW (12.1-15.1) % Plt Count (130-400) 10^3/c mm MPV (7.4-10.4) fL Neut % (Auto) % Lymph % (Auto) % [place] % (Auto) % Eos % (Auto) % Baso % (Auto) % Neut # (Auto) (1.8-7.7) 10^3/u L Lymph # (Auto) (0.8-4.8) 10^3/u L [place] # (Auto) (0.2-0.9) 10^3/u L Eos # (Auto) (0.0-0.8) 10^3/u L Baso # (Auto) (0.0-0.1) 10^3/u L Nucleated RBC % (a uto) % Nucleated RBCs # /100WBC Sodium (136-145) mmol/L Potassium (3.5-5.1) mmol/L Chloride (98-107) mmol/L Carbon Dioxide (22-29) mmol/L Anion Gap (5-19) BUN (6-20) mg/dL Creatinine (0.7-1.2) mg/dL GFR Calculation (90-130) mL/min Glucose (65-115) mg/dL Calculated Osmolal ity (285-295) mOsm/k g Calcium (8.5-10.5) mg/dL Total Bilirubin (0.15-1.2) mg/dL AST (0-40) U/L ALT (0-41) U/L Alkaline Phosphata se (40-130) IU/L Total Protein (6.6-8.7) g/dL Albumin (3.5-5.2) g/dL Globulin (1.3-4.6) g/dL Urine Color (Yellow) Urine Appearance (CLEAR) Urine pH (5-7) Ur Specific Gravit y (1.005-1.030) Urine Protein (Negative) Urine Glucose (UA) (Normal) Urine Ketones (Negative) Urine Blood (Negative) Urine Nitrate (Negative) Urine Bilirubin (Negative) Urine Urobilinogen (Negative) mg/dL Ur Leukocyte Remedios ase (Negative) Urine RBC (0-2) /hpf Urine WBC (0-5) /hpf Ur Squamous Epith Cells (0-5) /hpf Amorphous Sediment Urine Bacteria (NONE) /hpf Urine Mucus /hpf Salicylates (3-10) mg/dL Urine Opiates Scre en Negative (Negative) ng/mL Acetaminophen (10-30) ug/mL Ur Barbiturates Sc reen Negative (Negative) ng/mL Ur Phencyclidine S crn Negative (Negative) ng/mL Ur Amphetamines Sc reen Negative (Negative) ng/mL U Benzodiazepines Scrn Negative (Negative) ng/mL Urine Cocaine Scre en Negative (Negative) ng/mL U Marijuana (THC) Screen Negative (Negative) ng/mL Ethyl Alcohol (0-10) mg/dL Discharge Plan Discharge Patient Disposition: Admitted As Inpatient Admit Provider: Felix Nj Condition: Stable Referrals: [facility] [Other] (for primary care ... Come by the [facility], [address], [address] (east side of the [facility]) Tuesdays & between 9 AM & 11 AM. A Clinic volunteer will assist you in the process of registering for Clinic services. Please allow 45 minutes.) [facility] [Outside] - 4-7 days (To receive outpatient mental health services, call to schedule an intake assessment.) Discharge Diet: Regular Discharge Activity: Resume usual activity Patient Instructions: [place] (By mouth) Additional Instructions: FOLLOW UP WITH YOUR PCP IN 2 WEEKS TIME FOR A LAB DRAW FOR LITHIUM LEVEL. Discharge Date/Time: 01/28/20 20:23 Coding Level of Care Code ED Freelance Photographer for Chg Fwd Exam Comprehensive Documented by User: Dina Moore MD 01/28/20 18:22 HPI - Psych General: Chief Complaint: Psychiatric Symptoms Stated Complaint: mhe Time Seen by Provider: 01/28/20 15:54 PFSH ED PFSH: Medical History Anxiety Social History Smoking and tobacco status: heavy tobacco smoker Alcohol intake: never MDM - Psych Lab Data: Labs: Lab Results 01/28/20 01/28/20 01/28/20 Range/Units 16:12 16:12 16: WBC 10.9 H (4.0-10.0) 10^3/ uL RBC 5.41 H (4.1-5.3) 10^6/u L Hgb 15.5 (11.7-16.6) g/dL Hct 46.5 (42.0-52.0) % MCV 86.0 (80-94) fL MCH 28.7 (28.0-34.0) pg MCHC 33.3 (30.0-36.0) g/dL RDW 14.4 (12.1-15.1) % Plt Count 360 (130-400) 10^3/c mm MPV 9.8 (7.4-10.4) fL Neut % (Auto) 62.5 % Lymph % (Auto) 27.1 % [place] % (Auto) 7.6 % Eos % (Auto) 2.1 % Baso % (Auto) 0.4 % Neut # (Auto) 6.80 (1.8-7.7) 10^3/u L Lymph # (Auto) 2.9 (0.8-4.8) 10^3/u L [place] # (Auto) 0.8 (0.2-0.9) 10^3/u L Eos # (Auto) 0.2 (0.0-0.8) 10^3/u L Baso # (Auto) 0.0 (0.0-0.1) 10^3/u L Nucleated RBC % (a uto) 0 % Nucleated RBCs # 0.0 /100WBC Sodium 137 (136-145) mmol/L Potassium 3.7 (3.5-5.1) mmol/L Chloride 104 (98-107) mmol/L Carbon Dioxide 21 L (22-29) mmol/L Anion Gap 15.7 (5-19) BUN 17 (6-20) mg/dL Creatinine 0.9 (0.7-1.2) mg/dL GFR Calculation 89.3 L (90-130) mL/min Glucose 118 H (65-115) mg/dL Calculated Osmolal ity 287 (285-295) mOsm/k g Calcium 10.6 H (8.5-10.5) mg/dL Total Bilirubin 0.3 (0.15-1.2) mg/dL AST 11 (0-40) U/L ALT 12 (0-41) U/L Alkaline Phosphata se 79 (40-130) IU/L Total Protein 7.5 (6.6-8.7) g/dL Albumin 4.3 (3.5-5.2) g/dL Globulin 3.2 (1.3-4.6) g/dL Urine Color Yellow (Yellow) Urine Appearance Clear (CLEAR) Urine pH 5.0 (5-7) Ur Specific Gravit y 1.030 (1.005-1.030) Urine Protein Trace (Negative) Urine Glucose (UA) Norm (Normal) Urine Ketones Negative (Negative) Urine Blood 3+ H (Negative) Urine Nitrate Negative (Negative) Urine Bilirubin Neg (Negative) Urine Urobilinogen Norm (Negative) mg/dL Ur Leukocyte Remedios ase Trace H (Negative) Urine RBC 80-100 H (0-2) /hpf Urine WBC 25-40 H (0-5) /hpf Ur Squamous Epith Cells 0-4 H (0-5) /hpf Amorphous Sediment Not Reportable Urine Bacteria Trace (NONE) /hpf Urine Mucus 2+ /hpf Salicylates < 0.3 L (3-10) mg/dL Urine Opiates Scre en (Negative) ng/mL Acetaminophen < 5.0 L (10-30) ug/mL Ur Barbiturates Sc reen (Negative) ng/mL Ur Phencyclidine S crn (Negative) ng/mL Ur Amphetamines Sc reen (Negative) ng/mL U Benzodiazepines Scrn (Negative) ng/mL Urine Cocaine Scre en (Negative) ng/mL U Marijuana (THC) Screen (Negative) ng/mL Ethyl Alcohol < 10 (0-10) mg/dL 10/20/20 Range/Units 16:20 WBC (4.0-10.0) 10^3/ uL RBC (4.1-5.3) 10^6/u L Hgb (11.7-16.6) g/dL Hct (42.0-52.0) % MCV (80-94) fL MCH (28.0-34.0) pg MCHC (30.0-36.0) g/dL RDW (12.1-15.1) % Plt Count (130-400) 10^3/c mm MPV (7.4-10.4) fL Neut % (Auto) % Lymph % (Auto) % [place] % (Auto) % Eos % (Auto) % Baso % (Auto) % Neut # (Auto) (1.8-7.7) 10^3/u L Lymph # (Auto) (0.8-4.8) 10^3/u L [place] # (Auto) (0.2-0.9) 10^3/u L Eos # (Auto) (0.0-0.8) 10^3/u L Baso # (Auto) (0.0-0.1) 10^3/u L Nucleated RBC % (a uto) % Nucleated RBCs # /100WBC Sodium (136-145) mmol/L Potassium (3.5-5.1) mmol/L Chloride (98-107) mmol/L Carbon Dioxide (22-29) mmol/L Anion Gap (5-19) BUN (6-20) mg/dL Creatinine (0.7-1.2) mg/dL GFR Calculation (90-130) mL/min Glucose (65-115) mg/dL Calculated Osmolal ity (285-295) mOsm/k g Calcium (8.5-10.5) mg/dL Total Bilirubin (0.15-1.2) mg/dL AST (0-40) U/L ALT (0-41) U/L Alkaline Phosphata se (40-130) IU/L Total Protein (6.6-8.7) g/dL Albumin (3.5-5.2) g/dL Globulin (1.3-4.6) g/dL Urine Color (Yellow) Urine Appearance (CLEAR) Urine pH (5-7) Ur Specific Gravit y (1.005-1.030) Urine Protein (Negative) Urine Glucose (UA) (Normal) Urine Ketones (Negative) Urine Blood (Negative) Urine Nitrate (Negative) Urine Bilirubin (Negative) Urine Urobilinogen (Negative) mg/dL Ur Leukocyte Remedios ase (Negative) Urine RBC (0-2) /hpf Urine WBC (0-5) /hpf Ur Squamous Epith Cells (0-5) /hpf Amorphous Sediment Urine Bacteria (NONE) /hpf Urine Mucus /hpf Salicylates (3-10) mg/dL Urine Opiates Scre en Negative (Negative) ng/mL Acetaminophen (10-30) ug/mL Ur Barbiturates Sc reen Negative (Negative) ng/mL Ur Phencyclidine S crn Negative (Negative) ng/mL Ur Amphetamines Sc reen Negative (Negative) ng/mL U Benzodiazepines Scrn Negative (Negative) ng/mL Urine Cocaine Scre en Negative (Negative) ng/mL U Marijuana (THC) Screen Negative (Negative) ng/mL Ethyl Alcohol (0-10) mg/dL Discharge Plan Discharge Patient Disposition: Admitted As Inpatient Admit Provider: Felix Nj Condition: Stable Referrals: [facility] [Other] (for primary care ... Come by the [facility], [address], [address] (east side of the [facility]) Tuesdays & between 9 AM & 11 AM. A Clinic volunteer will assist you in the process of registering for Clinic services. Please allow 45 minutes.) [facility] [Outside] - 4-7 days (To receive outpatient mental health services, call to schedule an intake assessment.) Discharge Diet: Regular Discharge Activity: Resume usual activity Patient Instructions: [place] (By mouth) Additional Instructions: FOLLOW UP WITH YOUR PCP IN 2 WEEKS TIME FOR A LAB DRAW FOR LITHIUM LEVEL. Discharge Date/Time: 01/28/20 20:23 Coding Level of Care Code ED Freelance Photographer for Chg Fwd Exam Comprehensive
[2020-01-28 16:14] VITALS: RESP 18
[2020-01-28 16:28] LABS: Basophils % 0.4 %; Eosinophils # 0.2 10^3/uL (0.0-0.8); Eosinophils % 2.1 %; Hematocrit 46.5 % (42.0-52.0); Hemoglobin 15.5 g/dL (11.7-16.6); Lymphocytes # 2.9 10^3/uL (0.8-4.8); Lymphocytes % 27.1 %; Mean Corpuscular HGB Conc 33.3 g/dL (30.0-36.0); Mean Corpuscular Hemoglobin 28.7 pg (28.0-34.0); Mean Platelet Volume 9.8 fL (7.4-10.4); Monocytes # 0.8 10^3/uL (0.2-0.9); Monocytes % 7.6 %; Neutrophils % 62.5 %; Nucleated Red Blood Cells % 0 %; Platelet Count 360 10^3/cmm (130-400); Red Blood Count 5.41 10^6/uL (4.1-5.3); Red Cell Distribution Width 14.4 % (12.1-15.1); White Blood Count 10.9 10^3/uL (4.0-10.0)
[2020-01-28 16:40] LABS: Add Urine Microscopic? YES; Bilirubin Urine Neg (Negative); Blood Urine 3+ (Negative); Glucose Urine UA Norm (Normal); Ketones Urine Negative (Negative); Leukocyte Esterase Urine Trace (Negative); Nitrate Urine Negative (Negative); Protein Urine Trace (Negative); Urine Appearance Clear (CLEAR); Urine Color Yellow (Yellow); Urobilinogen Urine Norm (Negative)
[2020-01-28 16:48] LABS: Amphetamines Screen Urine Negative (Negative); Barbiturates Screen Urine Negative (Negative); Benzodiazepines Screen Urine Negative (Negative); Cocaine Screen Urine Negative (Negative); Opiate Screen Urine Negative (Negative); PCP Screen Urine Negative (Negative); THC Screen Urine Negative (Negative)
[2020-01-28 17:01] LABS: Mucus Urine 2+ /hpf; RBC Urine 80-100 /hpf (0-2); Squamous Epithelial Cell Urine 0-4 /hpf (0-5); WBC Urine 25-40 /hpf (0-5)
[2020-01-28 17:02] LABS: Add Urine Culture? Yes; Bacteria Urine TRACE /hpf
[2020-01-28] MEDS: LORazepam 2 mg/mL INJ 1 mL IM (17:07)
[2020-01-28 17:12] LABS: Alanine Aminotransferase 12 U/L (0-41); Albumin Level 4.3 g/dL (3.5-5.2); Alkaline Phosphatase 79 IU/L (40-130); Anion Gap 15.7 (5-19); Aspartate Amino Transferase 11 U/L (0-40); Blood Urea Nitrogen 17 mg/dL (6-20); Calcium 10.6 mg/dL (8.5-10.5); Carbon Dioxide 21 mmol/L (22-29); Chloride 104 mmol/L (98-107); Globulin 3.2 g/dL (1.3-4.6); Glomerular Filtration Rate 89.3 mL/min (90-130); Glucose 118 mg/dL (65-115); Osmolality Calculated 287 mOsm/kg (285-295); Potassium 3.7 mmol/L (3.5-5.1); Sodium 137 mmol/L (136-145); Total Bilirubin 0.3 mg/dL (0.15-1.2); Total Protein 7.5 g/dL (6.6-8.7)
[2020-01-28 17:13] LABS: Acetaminophen < 5.0 ug/mL (10-30); Alcohol Level < 10 mg/dL (0-10); Salicylate < 0.3 mg/dL (3-10)
[2020-01-28] MEDS: ziprasidone 20 mg/mL SDV 10 MG IM (17:33)
[2020-01-28] MEDS: LORazepam 2 mg/mL INJ 1 mL 4 MG IM (18:19)
[2020-01-28] MEDS: haloperidol inj 5 mg/mL INJ 1 mL IM (18:19)
--- NOTE | 2020-01-28 18:28 | PC.NURSE ---
patient refusing to allow nurse to perform COVID swab due to recently being swabbed, however patient continues to cough and hack up mucus. Patient again attempts to leave as he is remind he has been placed on a 96 hour hold
[2020-01-28 20:09] LABS: SARS Covid-2 Antigen Negative (Negative)
--- NOTE | 2020-01-28 20:22 | PC.NURSE ---
Patient transported to NPU via wheelchair with windows server support technician and security.
[2020-01-28 20:47] VITALS: BP 120/79; PULSE 72; RESP 15; TEMP 36.4; O2SAT 96
[2020-01-28 20:49] VITALS: BP 120/79; PULSE 72; RESP 15; TEMP 36.4; O2SAT 96
[2020-01-28 21:27] VITALS: BP 120/79; PULSE 72; RESP 15; TEMP 36.4; O2SAT 96
--- NOTE | 2020-01-28 23:51 | NUR.SHIFT ---
Pt arrived on the unit at 2030. Arrived with SI, increasing depression, and inability to cope with the loss of his . Report from the ED states that he recently lost his to cancer he has been despondent and has plans to harm himself he vocalizes several different options which she is considered including shooting himself hanging himself or cutting his wrist with a razor blade. His just recently on January 18 per his report. He has a history of schizophrenia. He could not independently verify his report of his dying he says it was from ovarian cancer, although there are other other reports in his record mentioning his 's illness and the stresses it places on him that are consistent with this. Upon arrival, the patient was placed in green scrubs, skin assessment completed, and he was placed in his bed. He is sedated from the medication that he received in the ED due to anxiety which includes a total of : 6mg of Ativan IM, 5mg Haldol IM, and 10mg of Geodon prior to coming to the unit. He is resting in his bed.
[2020-01-29 06:00] VITALS: BP 111/72; PULSE 70; RESP 14; TEMP 37; O2SAT 96
[2020-01-29] MEDS: BuSPIRONE 5 mg Tablet PO ×2 (08:08→16:49)
[2020-01-29] MEDS: lithium carbonate 300 mg Capsule PO ×2 (08:08→16:49)
--- NOTE | 2020-01-29 08:55 | PC.RESP ---
SMOKING CESSATION INFORMATION SENT TO PATIENT.
[2020-01-29 09:32] VITALS: PULSE 105; RESP 14; O2SAT 94
[2020-01-29 13:52] VITALS: BP 107/67; PULSE 107; RESP 18; TEMP 38.2; O2SAT 96
[2020-01-29] MEDS: acetaminophen 325 mg Tablet 650 MG PO ×2 (14:37→22:20)
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
[2020-01-29 20:54] VITALS: BP 102/68; PULSE 85; RESP 16; TEMP 36.2; O2SAT 94
[2020-01-29] MEDS: hyDROXYzine 25 mg Capsule 50 MG PO (21:44)
[2020-01-29] MEDS: trazodone 50 mg Tablet PO (21:44)
--- NOTE | 2020-01-29 21:45 | PC.NURSE ---
visteril/trazodone 50mg po trazodone given for rest 50mg visteril given for anxiety
--- NOTE | 2020-01-29 22:21 | PC.NURSE ---
tylenol 650mg po given for pain in the neck rated 5 on 1-10 pain scale
[2020-01-30 06:00] VITALS: BP 108/75; PULSE 78; RESP 17; TEMP 36.6; O2SAT 95
[2020-01-30] MEDS: lithium carbonate 300 mg Capsule PO ×2 (08:17→21:29)
[2020-01-30] MEDS: BuSPIRONE 5 mg Tablet PO ×2 (08:17→21:29)
--- NOTE | 2020-01-30 11:02 | PM.NPN ---
Subjective NPU Subjective: Interval history: Ren presents today reporting that things have been really tough, but he still little better. He is once again focused on discharge and talked about whether he here on Monday. We discussed the likelihood that we would want more days than that. We agreed we will work to find out what his legal peril or issues might be and prevent the chance that he is missing some necessary hearing that could lead to him being more depressed because things get more stacked against him. He reports eating okay and sleeping fine. Mental Status Exam MSE Comments: This is an overweight white male with hospital scrubs on with adequate grooming and eye contact. No abnormal movements except for mild psychomotor retardation. Cooperative with exam in mild distress. Speech was normal rate, decreased volume. Mood described as a little better, affect congruent. Thought process organized. Thought content: Patient denied any homicidal ideation, but reported resolving suicidal ideation, there were no delusions reported or noted, he denied any auditory or visual hallucinations. Attention and concentration were intact and memory appeared reliable but none were formally tested. He is alert and oriented x3. Insight and judgment are impaired, impulse control is impaired. Vitals/I&O/Wt Last Vital Signs Temp 98.6 F 01/31/20 06:00 Pulse 66 01/31/20 06:00 Resp 16 01/31/20 06:00 BP 122/80 01/31/20 06:00 Pulse Ox 96 01/31/20 06:00 Data NPU : 01/28/20 16:12 01/28/20 16:12 Micro: Microbiology 01/28/20 16:20 Urine Culture - Final Urine,Clean Catch Microbiology 01/28/20 16:20 Urine,Clean Catch Urine Culture - Final A&P Additional A&P Information (1) Anxiety: (2) Malingering: (3) Chronic schizophrenia: (4) Acute erythematous tonsillitis: (5) Sinusitis nasal: (6) Bereavement: (7) Cluster B personality disorder in adult: This is a 50-year-old white male with a long history of frequent hospitalizations and a recent history of frequent emergency room visits reportedly against the backdrop of his 's due to cancer who presents with behaviors concerning for malingering and cluster B pathology reporting that he is in need of few days to get my head together. 1. Continue current medication. We will explore possible adjustments. 2. Continue every 15 minute checks for safety. 3. Encourage individual, group and milieu therapy. 4. Evaluate for safety given additional psychosocial challenges. Involuntary Hold Information 96 Hour Hold: 96 Hour Involuntary Admission: Yes 96 Hour Hold Ending Date: 02/03/20 96 Hour Hold Ending Time: 15:45 Attestations NPU Medical Necessity Statement*: Inpatient hospitalization is medically necessary and the clinically appropriate intervention at this time. We will monitor medications and make changes as indicated. Likely length of stay 2-4 days. Coding Level of Care Code Acute [employer] for Vitaly Scruggs
[2020-01-30 13:49] VITALS: BP 107/75; PULSE 82; RESP 18; TEMP 36.8; O2SAT 97
[2020-01-30] MEDS: nicotine 2 mg Gum BUCCAL (14:03)
[2020-01-30 20:16] VITALS: BP 124/84; PULSE 88; RESP 17; TEMP 36.7; O2SAT 96
[2020-01-30] MEDS: benztropine 1 mg Tablet PO (21:28)
[2020-01-30] MEDS: trazodone 50 mg Tablet PO (21:29)
[2020-01-30] MEDS: hyDROXYzine 25 mg Capsule 50 MG PO (21:29)
[2020-01-30] MEDS: acetaminophen 325 mg Tablet 650 MG PO (21:30)
[2020-01-31] MEDS: hyDROXYzine 25 mg Capsule 50 MG PO ×2 (04:37→21:27)
[2020-01-31 06:00] VITALS: BP 122/80; PULSE 66; RESP 16; TEMP 37; O2SAT 96
[2020-01-31] MEDS: benztropine 1 mg Tablet PO ×2 (06:06→21:27)
[2020-01-31] MEDS: BuSPIRONE 5 mg Tablet PO ×2 (08:42→21:27)
[2020-01-31] MEDS: lithium carbonate 300 mg Capsule PO ×2 (08:42→21:27)
[2020-01-31] MEDS: nicotine 21 mg Patch 1 PATCH TRANSDERMA (10:44)
[2020-01-31 14:00] VITALS: PULSE 87; RESP 18; TEMP 36.7; O2SAT 96
--- NOTE | 2020-01-31 16:47 | P.PN_ITS ---
Subjective NPU Subjective: Interval history: Ren presents today reporting that he is doing okay. He reports that his who 's name is Tere Gomes. We have been unable to confirm her at this point. He continues to report anxiety about the challenges that he faces from a legal standpoint. He reports feeling fine for discharge and was reporting that he should be allowed to go because he needs to attend to the pipes in his house. I explained to him that the temperature drop was not going to be into the freezing range and that we are most focused on his safety at this point. At one point there was a smirk on his face during our conversation that continues to raise the question of malingering and cluster B pathology. Mental Status Exam MSE Comments: This is an overweight white male with hospital scrubs on with adequate grooming and eye contact. No abnormal movements except for mild psychomotor retardation. Cooperative with exam in mild distress. Speech was normal rate, decreased volume. Mood described as I feel pretty good, affect subdued. Thought process organized. Thought content: Patient denied suicidal or homicidal ideation, there were no delusions reported or noted, he denied any auditory or visual hallucinations. Attention and concentration were intact and memory appeared reliable but none were formally tested. He is alert and oriented x3. Insight and judgment are limited, but improving, impulse control is impaired. Vitals/I&O/Wt Last Vital Signs Temp 98.1 F 01/31/20 14:00 Pulse 87 01/31/20 14:00 Resp 18 01/31/20 14:00 BP 122/80 01/31/20 06:00 Pulse Ox 96 01/31/20 14:00 Data NPU : 01/28/20 16:12 01/28/20 16:12 A&P Additional A&P Information (1) Anxiety: (2) Malingering: (3) Chronic schizophrenia: (4) Acute erythematous tonsillitis: (5) Sinusitis nasal: (6) Bereavement: (7) Cluster B personality disorder in adult: This is a 50-year-old white male with a long history of frequent hospitalizations and a recent history of frequent emergency room visits reportedly against the backdrop of his 's due to cancer who presents with behaviors concerning for malingering and cluster B pathology reporting that he is in need of few days to get my head together. 1. Continue current medication. 2. Continue every 15 minute checks for safety. 3. Encourage individual, group and milieu therapy. 4. Evaluate for safety given additional psychosocial challenges. Involuntary Hold Information 96 Hour Hold: 96 Hour Involuntary Admission: Yes 96 Hour Hold Ending Date: 02/03/20 96 Hour Hold Ending Time: 15:45 Attestations NPU Medical Necessity Statement*: Inpatient hospitalization is medically necessary and the clinically appropriate intervention at this time. We will monitor medications and make changes as indicated. Likely length of stay 1-3 days. Coding Level of Care Code Acute [employer] [facility] Team Lead for Vitaly Scruggs
[2020-01-31 20:55] VITALS: BP 115/74; PULSE 85; RESP 19; TEMP 36.4; O2SAT 98
--- NOTE | 2020-01-31 21:30 | PC.NURSE ---
Addendum entered by Grace Avalos RN 02/01/20 00:15: Pt is resting in his room. The twitching in his neck is less and he reports less anxiety Original Note: cogentin/visteril Cogentin 1mg PO given for neck twitch visteril 50mg PO given for anxiety will continue to monitor pt.
--- NOTE | 2020-01-31 22:10 | PC.NURSE ---
assessment pt is denies HI/SI, VH/AH, he was playing table football with another patient, smiling, cooperative. He does present with neck twitch. Will continue to monitor the patient.
[2020-02-01 06:00] VITALS: BP 127/90; PULSE 80; RESP 17; TEMP 36.6; O2SAT 97
[2020-02-01] MEDS: lithium carbonate 300 mg Capsule PO ×2 (08:32→20:34)
[2020-02-01] MEDS: BuSPIRONE 5 mg Tablet PO ×2 (08:32→20:34)
--- NOTE | 2020-02-01 11:46 | P.PN_ITS ---
Subjective NPU Subjective: Interval history: None present today reporting that these feeling like he is accomplished although he cannot do in this hospitalization. We discussed the fact that it seems he comes in there is no clear indication what he has accomplished or what he accomplishes during the hospitalization and then he is quick to leave. We discussed the concerns about how this looks like malingering. He has however that he needed to get his head straight with everything that happened. He reports that he is feeling like he can handle what ever is going to come and he if adequately denied having any suicidal thoughts or concerns. I discussed the possibility of discharging him tomorrow. He reports a plan to follow-up with neurologist about his neck twist which has been essentially nonexistent when I have seen him. But then when asked about it he does the movement almost like it happens when he is actually reportedly experiencing it. Mental Status Exam MSE Comments: This is an overweight white male with hospital scrubs on with adequate grooming and eye contact. No abnormal movements except for mild psychomotor retardation. Cooperative with exam in mild distress. Speech was normal rate, decreased volume. Mood described as I feel pretty good, affect subdued. Thought process organized. Thought content: Patient denied suicidal or homicidal ideation, there were no delusions reported or noted, he denied any auditory or visual hallucinations. Attention and concentration were intact and memory appeared reliable but none were formally tested. He is alert and orien tiffanie x3. Insight and judgment are limited, but improving, impulse control is impaired. Vitals/I&O/Wt Last Vital Signs Temp 98.0 F 02/01/20 14:00 Pulse 80 02/01/20 14:00 Resp 20 H 02/01/20 14:00 BP 115/74 02/01/20 14:00 Pulse Ox 97 02/01/20 14:00 Data NPU : 01/28/20 16:12 01/28/20 16:12 A&P Additional A&P Information (1) Anxiety: (2) Malingering: (3) Chronic schizophrenia: (4) Acute erythematous tonsillitis: (5) Sinusitis nasal: (6) Bereavement: (7) Cluster B personality disorder in adult: This is a 50-year-old white male with a long history of frequent hospitalizations and a recent history of frequent emergency room visits reportedly against the backdrop of his 's due to cancer who presents with behaviors concerning for malingering and cluster B pathology reporting that he is in need of few days to get my head together. 1. Continue current medication. Except: Increase his lithium. He has been taking the 300 twice daily while here but based on his lithium level it is doubtful he has been taking it regularly. We will recheck lithium level in the morning. 2. Continue every 15 minute checks for safety. 3. Encourage individual, group and milieu therapy. 4. Evaluate for safety given additional psychosocial challenges. Involuntary Hold Information 96 Hour Hold: 96 Hour Involuntary Admission: Yes 96 Hour Hold Ending Date: 02/03/20 96 Hour Hold Ending Time: 15:45 Attestations NPU Medical Necessity Statement*: Inpatient hospitalization is medically necessary and the clinically appropriate intervention at this time. We will monitor medications and make changes as indicated. Likely length of stay 1-2 days. Coding Level of Care Code Acute [employer] for Vitaly Scruggs
[2020-02-01 14:00] VITALS: BP 115/74; PULSE 80; RESP 20; TEMP 36.7; O2SAT 97
[2020-02-01] MEDS: hyDROXYzine 25 mg Capsule 50 MG PO (20:35)
--- NOTE | 2020-02-01 20:36 | PC.NURSE ---
PRN VISTARIL ADMINISTERED VISTARIL 50MG PO PER PT REQUEST FOR INCREASING ANXIETY.
[2020-02-01 22:00] VITALS: BP 131/75; PULSE 77; RESP 18; TEMP 36.6; O2SAT 95
[2020-02-02 06:00] VITALS: BP 102/69; PULSE 56; RESP 16; TEMP 36.8; O2SAT 93
[2020-02-02 09:10] LABS: Lithium 0.4 mmol/L (0.6-1.2)
[2020-02-02] MEDS: lithium carbonate 300 mg Capsule 600 MG PO (09:12)
[2020-02-02] MEDS: BuSPIRONE 5 mg Tablet PO (09:13)
[2020-02-02 11:02] VITALS: PULSE 85; RESP 16; O2SAT 96
[2020-02-02 13:23] VITALS: PULSE 85; RESP 16; O2SAT 96
[2020-02-02 13:27] VITALS: BP 115/75; PULSE 89; RESP 16; TEMP 36.3; O2SAT 96
--- NOTE | 2020-02-02 13:56 | P.DS_ITS ---
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 assist you in the process of registering for Clinic services. Please allow 45 minutes.) [facility] [Outside] - 4-7 days (To receive outpatient mental health services, call to schedule an intake assessment.) Discharge Diet: Regular Discharge Activity: Resume usual activity Patient Instructions: [place] (By mouth) Activity Restrictions/Additional Instructions: FOLLOW UP WITH YOUR PCP IN 2 WEEKS TIME FOR A LAB DRAW FOR LITHIUM LEVEL. Discharge Date/Time: 02/02/20 14:20 Discharge Attestations NPU Time Spent in Discharge Care*: less than 30 min Specific Discharge Activities: Specific discharge activities: educating patient, discussing with catalytic case operator/social workers/dc planners, documenting/other paperwork and evaluating patient/reviewing data Coding Level of Care Code Acute Ice Cutter for Chg Fwd Diagnoses Anxiety F41.9 Malingering Z76.5 Chronic schizophrenia F20.9 Acute erythematous tonsillitis J03.90 Sinusitis nasal J01.10 Chronicity: subacute Sinusitis location: frontal Bereavement Z63.4 Cluster B personality disorder in adult F60.9
== END 2020-02-02 14:20 | disposition home or self-care (01) | DRG 880 ==
LOC: ER 16:27 → NP 17:57
PROVIDERS: Family Medicine; Admitting Provider Psychiatry & Neurology Psychiatry; Visit Provider Psychiatry & Neurology Psychiatry
DX: F41.8 Other specified anxiety disorders (principal); R45.851 Suicidal ideations; J01.10 Acute frontal sinusitis, unspecified; F20.9 Schizophrenia, unspecified; Z76.5 Malingerer [conscious simulation]; Z63.4 Disappearance and death of family member; F60.89 Other specific personality disorders; F17.210 Nicotine dependence, cigarettes, uncomplicated; J03.90 Acute tonsillitis, unspecified
CPT/HCPCS: 12345; 36415; 80053; 80178; 80306; 80307; 81001; 85025; 87086; 87426; 96372; 99284; J1630; J2060; J3486

== ENCOUNTER 2020-02-03 18:32 | Emergency (ER) | payer SELFPAY ==
[2020-02-03 18:35] VITALS: PULSE 102; RESP 14; TEMP 36.3; O2SAT 98
--- NOTE | 2020-02-03 18:41 | XR_ITS ---
WS: [id number] Exam: XR chest 1V portable [id number] Date/Time of Exam: 02/03/2020 6:41 PM Reason For Exam: sob Findings: Comparison 01/24/2020. The lungs are clear and fully expanded. Normal cardiomediastinal structures and bony elements. No ple ural effusions. XR/XR chest 1V portable [id number] IMPRESSION: 1. Normal chest.
--- NOTE | 2020-02-03 18:41 | ECG_ITS ---
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 Measurements Intervals [place] Rate: 88 P: 64 NC: 184 QRS: 43 QRSD: 97 T: 21 QT: 363 QTc: 441 Interpretive Statements SINUS RHYTHM NONSPECIFIC T-WAVE ABNORMALITY Compared to ECG 12/18/2019 13:01:51 T-wave abnormality now present Myocardial infarct finding no longer present Electronically Signed On 02-04-2020 7:16:06 CDT by Nga Dunbar M.D. [id number]
[2020-02-03] MEDS: haloperidol inj 5 mg/mL INJ 1 mL IM (18:46)
[2020-02-03] MEDS: LORazepam 2 mg/mL INJ 1 mL IM ×2 (18:46→19:40)
--- NOTE | 2020-02-03 18:54 | ED_ITS ---
HPI - Psych General: Chief Complaint: Psychiatric Symptoms Stated Complaint: PANIC ATTACK Time Seen by Provider: 02/03/20 18:37 Source: patient Mode of arrival: ambulatory Limitations: no limitations History of Present Illness: HPI Narrative: Ren is a 50-year-old male that is very well-known to the ER has a long history of anxiety. He states he been having a panic attack today and states he feels like he just cannot get a deep breath in. He denies any suicidal or homicidal ideations. Denies any chest pain. Denies any worsening improving factors. Review of Systems Const: Denies: fever(s), chills, body aches or change in appetite Eyes: Denies: blurry vision or eye discomfort ENMT: Denies: throat pain or dental pain Card: Denies: chest pain Resp: Reports: dyspnea GI: Denies: abdominal pain, nausea, vomiting or diarrhea : Denies: dysuria Musc: Denies: neck pain or back pain Skin/Breast: Denies: rash Neuro: Denies: headache(s) Psych: Reports: anxiety Olvin/Lymph: Denies: easy bruising All/Imm: Denies: urticaria PFSH ED PFSH: Medical History (Updated 02/03/20 @ 19:24 by Dina Moore MD) Anxiety Social History Smoking and tobacco status: heavy tobacco smoker Alcohol intake: never Physical Exam Const: COMMON NORMALS: no acute distress, patient oriented x3 and healthy appearing HENMT: COMMON NORMALS: normocephalic and atraumatic HEAD & SCALP: normocephalic and atraumatic Eye: COMMON NORMALS: Equal, round and reactive pupils present and EOMs intact bilaterally PUPIL: Yes Equal, round and reactive pupils present Neck/C-Spine: COMMON NORMALS: full ROM and supple Chest: COMMONS NORMALS: normal inspection of the chest and normal palpation of entire chest wall Resp: COMMON NORMALS: normal respiratory effort, No retractions, No use of accessory muscles and clear to auscultation bilaterally AUSCULTATION: clear to auscultation bilaterally Cardio: COMMON NORMALS: regular rate, regular rhythm and No murmurs present (Cardio) RATE: regular rate RHYTHM: regular rhythm GI: COMMON NORMALS: Normal to inspection, nondistended, normoactive bowel sounds present, Soft to palpation, non-tender and no masses PALPATION: Yes Soft to palpation Extremity: COMMON NORMALS: normal to inspection and full ROM Neuro: COMMON NORMALS: patient oriented x3, moves all extremities and no focal motor deficits Psych: COMMON NORMALS: mental status grossly normal, Normal thought process present and cooperative MOOD & AFFECT: Yes anxious THOUGHT PROCESS: Normal thought process present Skin: COMMON NORMALS: no rashes or lesions noted and no wounds GENERAL SKIN EXAM: no rashes or lesions noted MDM - Psych MDM Narrative: Medical decision making narrative: Ren presents here with anxiety and has a long history of anxiety. Patient is well-appearing here and has no signs of cardiac cause. EKG and x-ray are normal. He has no signs of pulmonary embolism. Patient is stable for discharge is to follow-up his PCP and return if worsening. Imaging Data^: CXR: Attestation: I personally reviewed and interpreted this imaging study as follows: My impression: no acute abnormality EKG Data^: EKG 1: Attestation: I personally reviewed and interpreted this EKG as follows: EKG interpretation date: 02/03/20 EKG interpretation time: 19:27 Interpretation: nsr hr [address] or t wave abnormalities qrs 97 qtc 409 Discharge Plan Discharge Patient Disposition: Home Clinical Impression: Anxiety Condition: Stable Prescriptions: No Action albuterol sulfate 90 mcg/actuation HFA aerosol inhaler 1 inh INHALATION Q4H PRN (Reason: shortness of breath or wheezing) Qty: 8.5 RF: 0 lithium carbonate 300 mg Capsule 600 mg PO 0900,2100 30 Days Qty: 120 RF: 1 buspirone 5 mg tablet 5 mg PO BID 30 Days Qty: 60 RF: 1 hydroxyzine HCl 25 mg tablet 25 mg PO Q4H PRN (Reason: anxiety) 30 Days Qty: 120 RF: 1 Discharge Orders: Discharge Order (Routine); Ordered 02/03/20 Ordered By: Dina Moore Discharge Diet: Advance as tolerated Discharge Activity: Resume usual activity Patient Instructions: Anxiety (ED) Discharge Date/Time: 02/03/20 20:09 Coding Level of Care Code ED Insurance And Financial Services Agent for Chg Fwd Exam Comprehensive
[2020-02-03 19:02] VITALS: BP 116/86; PULSE 98; RESP 18; O2SAT 96
[2020-02-03] MEDS: diphenhydrAMINE 50 mg/mL SDV 1mL IM (19:40)
--- NOTE | 2020-02-03 19:46 | PC.NURSE ---
patient C/O panic attack Dr Moore informed medications given - calming, positive, encouragement offered
[2020-02-03 20:07] VITALS: BP 116/72; PULSE 76; RESP 16; TEMP 36.6; O2SAT 98
== END 2020-02-03 20:09 | disposition home or self-care (01) ==
PROVIDERS: Emergency Provider Emergency Medicine
DX: F41.9 Anxiety disorder, unspecified (principal); F17.210 Nicotine dependence, cigarettes, uncomplicated
CPT/HCPCS: 12345; 71045; 93005; 96372; 99284; J1200; J1630; J2060

== ENCOUNTER 2020-09-11 15:32 | Inpatient (IN) | payer SELFPAY ==
[2020-09-11 15:37] VITALS: BP 146/90; PULSE 90; RESP 16; TEMP 36.3; O2SAT 95; BMI 32.8
--- NOTE | 2020-09-11 15:44 | ECG_ITS ---
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
--- NOTE | 2020-09-11 15:44 | XRR_ITS ---
PROCEDURE INFORMATION: Exam: XR Chest Exam date and time: 09/11/2020 3:48 PM Age: 50 years old Clinical indication: Reduced breath sounds. TECHNIQUE: Imaging protocol: XR of the chest. Views: 1 view. COMPARISON: CR XR chest 1V portable [id number] 02/03/2020 6:59 PM FINDINGS: Lungs: No pulmonary consolidation. Pleural spaces: No pleural effusion. No pneumothorax. Heart/Mediastinum: The cardiac silhouette is unchanged. No gross evidence of pneumomediastinum. Bones/joints: No gross fracture. XR/XR chest 1V portable [id number] IMPRESSION: No acute cardiopulmonary abnormality identified.
[2020-09-11 15:55] VITALS: BP 146/90; PULSE 90; RESP 16; O2SAT 95
[2020-09-11 16:11] LABS: Amphetamines Screen Urine Negative (Negative); Barbiturates Screen Urine Negative (Negative); Benzodiazepines Screen Urine Negative (Negative); Cocaine Screen Urine Negative (Negative); Opiate Screen Urine Negative (Negative); PCP Screen Urine Negative (Negative); THC Screen Urine Negative (Negative)
[2020-09-11 16:17] LABS: Basophils # 0.1 10^3/uL (0.0-0.1); Basophils % 0.4 %; Eosinophils # 0.1 10^3/uL (0.0-0.8); Eosinophils % 0.7 %; Hematocrit 46.4 % (42.0-52.0); Hemoglobin 15.4 g/dL (11.7-16.6); Lymphocytes # 2.5 10^3/uL (0.8-4.8); Lymphocytes % 20.3 %; Mean Corpuscular HGB Conc 33.2 g/dL (30.0-36.0); Mean Corpuscular Hemoglobin 28.6 pg (28.0-34.0); Mean Corpuscular Volume 86.2 fL (80-94); Monocytes # 0.7 10^3/uL (0.2-0.9); Monocytes % 5.8 %; Neutrophils % 72.5 %; Nucleated Red Blood Cells % 0 %; Platelet Count 354 10^3/cmm (130-400); Red Blood Count 5.38 10^6/uL (4.1-5.3); Red Cell Distribution Width 14.3 % (12.1-15.1); White Blood Count 12.3 10^3/uL (4.0-10.0)
[2020-09-11] MEDS: haloperidol inj 5 mg/mL INJ 1 mL IM (16:22)
[2020-09-11 16:25] LABS: Add Urine Microscopic? YES; Bilirubin Urine 1+ (Negative); Blood Urine 3+ (Negative); Glucose Urine UA Norm (Normal); Ketones Urine 1+ (Negative); Leukocyte Esterase Urine 2+ (Negative); Nitrate Urine Negative (Negative); Protein Urine 1+ (Negative); Specific Gravity, Urine 1.025 (1.005-1.030); Urine Appearance Cloudy (CLEAR); Urine Color Amber (Yellow); Urobilinogen Urine 1 mg/dL (Negative); pH Urine 5 (5-7)
[2020-09-11 16:26] LABS: RBC Urine 25-40 /hpf (0-2); WBC Urine 15-25 /hpf (0-5)
[2020-09-11 16:27] LABS: Add Urine Culture? Yes; Bacteria Urine 1+ /hpf
[2020-09-11 16:35] LABS: Lithium 0.1 mmol/L (0.6-1.2)
[2020-09-11 16:40] LABS: Alanine Aminotransferase 12 U/L (0-41); Albumin Level 4.3 g/dL (3.5-5.2); Alkaline Phosphatase 64 IU/L (40-130); Anion Gap 14.7 (5-19); Aspartate Amino Transferase 13 U/L (0-40); Blood Urea Nitrogen 12 mg/dL (6-20); Calcium 9.1 mg/dL (8.5-10.5); Carbon Dioxide 24 mmol/L (22-29); Chloride 104 mmol/L (98-107); Globulin 3.4 g/dL (1.3-4.6); Glomerular Filtration Rate 79.1 mL/min (90-130); Glucose 99 mg/dL (65-115); Osmolality Calculated 288 mOsm/kg (285-295); Potassium 3.7 mmol/L (3.5-5.1); Sodium 139 mmol/L (136-145); Thyroid Stimulating Hormone 0.87 uIU/mL (0.27-4.20); Total Bilirubin 0.6 mg/dL (0.15-1.2); Total Protein 7.7 g/dL (6.6-8.7)
[2020-09-11 16:46] LABS: Acetaminophen < 5.0 ug/mL (10-30); Alcohol Level < 10 mg/dL (0-10); Salicylate < 0.3 mg/dL (3-10)
--- NOTE | 2020-09-11 17:04 | XRR_ITS ---
PROCEDURE INFORMATION: Exam: XR Cervical Spine Exam date and time: 09/11/2020 5:06 PM Age: 50 years old Clinical indication: Neck pain TECHNIQUE: Imaging protocol: XR of the cervical spine. Views: 2 or 3 views. COMPARISON: CT cervical spin wo con* [id number] 11/03/2019 10:39 AM FINDINGS: The cervical lordosis is maintained. The atlantoaxial interval and craniocervical junction are unremarkable. No prevertebral soft tissue swelling is seen. Mild degenerative disc disease is seen in the cervical spine. No acute fracture is identified. XR/XR cervical spine 3V* [id number] IMPRESSION: 1. No acute fracture is identified. 2. Mild degenerative disc disease in the cervical spine.
[2020-09-11] MEDS: ciprofloxacin 500 mg Tablet PO (17:09)
--- NOTE | 2020-09-11 18:25 | W.ED.PSYCH ---
HPI - Psych General: Chief Complaint: Psychiatric Symptoms Stated Complaint: SUICIDAL Time Seen by Provider: 09/11/20 15:35 History of Present Illness: HPI Narrative: Patient is a 50-year-old male who comes to the ER complaining of suicidal ideations and that he is hearing voices. He refuses to tell me what the voices say. He is also says he has a plan on how he would hurt himself but refuses to tell me. He has a tic where he shakes his head back and forth and at times gets in coughing fits. He is asking for Ativan to help with his symptoms. He complains of a chip being implanted in his head and his neck which is causing him pain and placed there by the [employer]. complaint: suicidal ideation Associated symptoms: Reports auditory hallucinations, delusions (Believes government implanted chip in head and neck.), depression and suicidal ideation; Deny homicidal ideation If self harm: admits thoughts of self harm and has plan Review of Systems General: Reports: 10 or more systems reviewed and unremarkable except in HPI and below Const: Denies: fatigue Eyes: Denies: change in vision, blurry vision or eye redness ENMT: Denies: throat pain, swelling of lips/tongue, ear or mastoid pain or nasal congestion Card: Denies: chest pain, palpitations, irregular heart rhythm, edema, dyspnea on exertion or orthopnea Resp: Denies: dyspnea, productive cough or non-productive cough GI: Denies: abdominal pain, diarrhea or GI cramping : Denies: flank pain, urinary frequency or urinary urgency Musc: Denies: neck pain, back pain, extremity pain, joint pain, joint redness, limited range of motion or muscle weakness Skin/Breast: Denies: rash, pruritus, erythema, skin pain or skin tenderness Neuro: Denies: headache(s), numbness in extremities, weakness in extremities, sensory changes, difficulty walking, dizziness, confusion or Slurred speech present Psych: Reports: depression, auditory hallucinations and suicidal ideation; Denies: homicidal ideation Endo: Denies: polyuria All/Imm: Denies: urticaria, throat swelling or tongue swelling PFSH ED PFSH: Medical History (Updated 09/11/20 @ 18:28 by Héctor Cortes MD) Anxiety Social History Smoking and tobacco status: heavy tobacco smoker Alcohol intake: never Physical Exam Const: COMMON NORMALS: no acute distress, average body habitus, patient oriented x3, no limitations, healthy appearing, alert and well nourished GENERAL APPEARANCE: cooperative, comfortable, well kempt and well developed ORIENTATION/CONSCIOUSNESS: Yes awake, Yes oriented to person, Yes oriented to place and Yes oriented to time HENMT: COMMON NORMALS: normocephalic, external ears normal and Normal external nose present HEAD & SCALP: normal to inspection and normocephalic NOSE: Normal external nose present EXTERNAL EAR: Yes external ears normal MOUTH: Normal oral and palatal mucosa present THROAT: posterior oropharynx normal Eye: COMMON NORMALS: Equal, round and reactive pupils present and EOMs intact bilaterally GENERAL EYE: appearance normal, both eyes and all related structures PUPIL: Yes Equal, round and reactive pupils present Neck/C-Spine: COMMON NORMALS: full ROM, no lymphadenopathy, no meningeal signs and no JVD GENERAL: Yes normal visual inspection Lymph: LYMPHATIC: no lymphadenopathy noted Chest: COMMONS NORMALS: normal inspection of the chest and normal palpation of entire chest wall Resp: COMMON NORMALS: normal respiratory effort, No retractions, No use of accessory muscles, clear to auscultation bilaterally and percussion normal EFFORT & INSPECTION: Yes able to speak in complete sentences AUSCULTATION: clear to auscultation bilaterally PERCUSSION: percussion normal Cardio: COMMON NORMALS: no JVD, regular rate, regular rhythm, S1 normal heart sound present, S2 normal heart sound present and Peripheral pulses 2+ throughout RATE: regular rate RHYTHM: regular rhythm HEART SOUNDS: S1 normal heart sound present and S2 normal heart sound present PERIPHERAL PULSES: Peripheral pulses 2+ throughout GI: COMMON NORMALS: Normal to inspection, nondistended, normoactive bowel sounds present, Soft to palpation, non-tender and no masses INSPECTION: Yes normal to inspection PALPATION: Yes Soft to palpation : COMMON NORMALS: Yes no CVA tenderness BLADDER/KIDNEY EXAM: Yes no CVA tenderness Back/Pelvis: COMMON NORMALS: no CVA tenderness, thoracic and lumbar spine normal to inspection, no thoracic nor lumbar tenderness and thoraco-lumbar ROM normal Extremity: COMMON NORMALS: normal to inspection, full ROM, capillary refill normal, no joint enlargement and no pedal edema GENERAL: Yes normal exam except as noted Neuro: COMMON NORMALS: patient oriented x3, CN's II-XII intact bilaterally, moves all extremities, no focal motor deficits, no sensory deficits noted and gait normal SENSORIUM/ORIENTATION: Yes alert, Yes oriented to person, Yes oriented to place and Yes oriented to time MENINGEAL SIGNS: Yes no meningeal signs Psych: COMMON NORMALS: mental status grossly normal, cooperative, normal affect and speech normal APPEARANCE: Yes well kempt ATTITUDE: Yes calm SPEECH: Yes normal speech THOUGHT PROCESS: disorganized THOUGHT CONTENT: Yes Suicidality present, Yes delusions (Believes government implanted chip in head and neck.) and Yes Hallucination(s) present auditory INSIGHT: Poor insight present (Psych) JUDGEMENT: Poor judgement present (Psych) Skin: COMMON NORMALS: no rashes or lesions noted GENERAL SKIN EXAM: no rashes or lesions noted Course Vital Signs: Vital signs: Vital Signs Temperature 97.4 F L 09/11/20 15:37 Pulse Rate 90 09/11/20 15:55 Respiratory Rate 16 09/11/20 15:55 Blood Pressure 146/90 09/11/20 15:55 Pulse Oximetry 95 09/11/20 15:55 MDM - Psych MDM Narrative: Medical decision making narrative: The patient comes to the ER suicidal and psychotic as well as delusional. He refuses to tell me his plans to hurt himself and has made no attempt to hurt himself. He was given Haldol to control his symptoms in the ED. He also does have a UTI and was given Cipro. Discussed with Dr. Lazaro who accepts for admission. Lab Data: Labs: Lab Results 09/11/20 09/11/20 09/11/20 Range/Units 15:48 15:48 16:00 WBC 12.3 H (4.0-10.0) 10^3/ uL RBC 5.38 H (4.1-5.3) 10^6/u L Hgb 15.4 (11.7-16.6) g/dL Hct 46.4 (42.0-52.0) % MCV 86.2 (80-94) fL MCH 28.6 (28.0-34.0) pg MCHC 33.2 (30.0-36.0) g/dL RDW 14.3 (12.1-15.1) % Plt Count 354 (130-400) 10^3/c mm MPV 10.0 (7.4-10.4) fL Neut % (Auto) 72.5 % Lymph % (Auto) 20.3 % [place] % (Auto) 5.8 % Eos % (Auto) 0.7 % Baso % (Auto) 0.4 % Neut # (Auto) 8.90 H (1.8-7.7) 10^3/u L Lymph # (Auto) 2.5 (0.8-4.8) 10^3/u L [place] # (Auto) 0.7 (0.2-0.9) 10^3/u L Eos # (Auto) 0.1 (0.0-0.8) 10^3/u L Baso # (Auto) 0.1 (0.0-0.1) 10^3/u L Nucleated RBC % (a uto) 0 % Nucleated RBCs # 0.0 /100WBC Sodium (136-145) mmol/L Potassium (3.5-5.1) mmol/L Chloride (98-107) mmol/L Carbon Dioxide (22-29) mmol/L Anion Gap (5-19) BUN (6-20) mg/dL Creatinine (0.7-1.2) mg/dL GFR Calculation (90-130) mL/min Glucose (65-115) mg/dL Calculated Osmolal ity (285-295) mOsm/k g Calcium (8.5-10.5) mg/dL Total Bilirubin (0.15-1.2) mg/dL AST (0-40) U/L ALT (0-41) U/L Alkaline Phosphata se (40-130) IU/L Total Protein (6.6-8.7) g/dL Albumin (3.5-5.2) g/dL Globulin (1.3-4.6) g/dL TSH (0.27-4.20) uIU/ mL Urine Color Chrissy (Yellow) Urine Appearance Cloudy (CLEAR) Urine pH 5 (5-7) Ur Specific Gravit y 1.025 (1.005-1.030) Urine Protein 1+ H (Negative) Urine Glucose (UA) Norm (Normal) Urine Ketones 1+ H (Negative) Urine Blood 3+ H (Negative) Urine Nitrate Negative (Negative) Urine Bilirubin 1+ H (Negative) Urine Urobilinogen 1 H (Negative) mg/dL Ur Leukocyte Remedios ase 2+ H (Negative) Urine RBC 25-40 H (0-2) /hpf Urine WBC 15-25 H (0-5) /hpf Ur Squamous Epith Cells 5-10 H (0-5) /hpf Amorphous Sediment Not Reportable Urine Bacteria 1+ H (NONE) /hpf Salicylates (3-10) mg/dL Urine Opiates Scre en Negative (Negative) ng/mL Acetaminophen (10-30) ug/mL Ur Barbiturates Sc reen Negative (Negative) ng/mL Ur Phencyclidine S crn Negative (Negative) ng/mL Ur Amphetamines Sc reen Negative (Negative) ng/mL U Benzodiazepines Scrn Negative (Negative) ng/mL [place] (0.6-1.2) mmol/L Urine Cocaine Scre en Negative (Negative) ng/mL U Marijuana (THC) Screen Negative (Negative) ng/mL Ethyl Alcohol (0-10) mg/dL 09/11/20 09/11/20 Range/Units 16:00 16:00 WBC (4.0-10.0) 10^3/ uL RBC (4.1-5.3) 10^6/u L Hgb (11.7-16.6) g/dL Hct (42.0-52.0) % MCV (80-94) fL MCH (28.0-34.0) pg MCHC (30.0-36.0) g/dL RDW (12.1-15.1) % Plt Count (130-400) 10^3/c mm MPV (7.4-10.4) fL Neut % (Auto) % Lymph % (Auto) % [place] % (Auto) % Eos % (Auto) % Baso % (Auto) % Neut # (Auto) (1.8-7.7) 10^3/u L Lymph # (Auto) (0.8-4.8) 10^3/u L [place] # (Auto) (0.2-0.9) 10^3/u L Eos # (Auto) (0.0-0.8) 10^3/u L Baso # (Auto) (0.0-0.1) 10^3/u L Nucleated RBC % (a uto) % Nucleated RBCs # /100WBC Sodium 139 (136-145) mmol/L Potassium 3.7 (3.5-5.1) mmol/L Chloride 104 (98-107) mmol/L Carbon Dioxide 24 (22-29) mmol/L Anion Gap 14.7 (5-19) BUN 12 (6-20) mg/dL Creatinine 1.0 (0.7-1.2) mg/dL GFR Calculation 79.1 L (90-130) mL/min Glucose 99 (65-115) mg/dL Calculated Osmolal ity 288 (285-295) mOsm/k g Calcium 9.1 (8.5-10.5) mg/dL Total Bilirubin 0.6 (0.15-1.2) mg/dL AST 13 (0-40) U/L ALT 12 (0-41) U/L Alkaline Phosphata se 64 (40-130) IU/L Total Protein 7.7 (6.6-8.7) g/dL Albumin 4.3 (3.5-5.2) g/dL Globulin 3.4 (1.3-4.6) g/dL TSH 0.87 (0.27-4.20) uIU/ mL Urine Color (Yellow) Urine Appearance (CLEAR) Urine pH (5-7) Ur Specific Gravit y (1.005-1.030) Urine Protein (Negative) Urine Glucose (UA) (Normal) Urine Ketones (Negative) Urine Blood (Negative) Urine Nitrate (Negative) Urine Bilirubin (Negative) Urine Urobilinogen (Negative) mg/dL Ur Leukocyte Remedios ase (Negative) Urine RBC (0-2) /hpf Urine WBC (0-5) /hpf Ur Squamous Epith Cells (0-5) /hpf Amorphous Sediment Urine Bacteria (NONE) /hpf Salicylates < 0.3 L (3-10) mg/dL Urine Opiates Scre en (Negative) ng/mL Acetaminophen < 5.0 L (10-30) ug/mL Ur Barbiturates Sc reen (Negative) ng/mL Ur Phencyclidine S crn (Negative) ng/mL Ur Amphetamines Sc reen (Negative) ng/mL U Benzodiazepines Scrn (Negative) ng/mL [place] 0.1 L (0.6-1.2) mmol/L Urine Cocaine Scre en (Negative) ng/mL U Marijuana (THC) Screen (Negative) ng/mL Ethyl Alcohol < 10 (0-10) mg/dL Discharge Plan Discharge Patient Disposition: Admitted As Inpatient Clinical Impression: Acute psychosis, Suicidal ideation Condition: Stable Coding Level of Care Code ED Bullet Lubricating Machine Operator for Vitaly Scruggs
[2020-09-11 18:51] VITALS: BP 116/67; PULSE 77; RESP 13; TEMP 36.6; O2SAT 94
[2020-09-11 19:37] VITALS: BP 136/98; PULSE 93; RESP 18; TEMP 37.2; O2SAT 98
[2020-09-11] MEDS: acetaminophen 325 mg Tablet 650 MG PO (19:53)
[2020-09-11] MEDS: nicotine 2 mg Gum BUCCAL (19:54)
[2020-09-11] MEDS: OLANZapine 10 mg TABLET PO (21:24)
[2020-09-11 22:00] VITALS: BP 136/98; PULSE 93; RESP 18; TEMP 37.2; O2SAT 98
--- NOTE | 2020-09-12 02:19 | PC.NURSE ---
New admit 50/M UDS and BAL are neg. presents as SI with AH. pt will not share plan to self-harm, head shaking tic, coughing fit, seeking Ativan, believes chip in his head placed during Covid Vaccine that he does not know where it is now, but it was placed by the government. D/t seeking Ativan, ER physician has requested pt license to be surrendered. Dr Lazaro removed the Ativan as an option for treatment at all. Dr Lazaro ordered pt home meds stopped, no quetiapine to be given, replaced by 10mg PO Olanzapine Scheduled at Bedtime. Pt received medications this evening as ordered, slept the entire evening.
--- NOTE | 2020-09-12 03:07 | PC.NURSE ---
PRN 1952 Administered Tylenol 650mg for pt c/o pain in upper back shoulders and neck, will continue to monitor pt until end of shift. 2031 followup on pt, pt was sleeping at this point, will continue to monitor pt until the end of this shift.
[2020-09-12 06:00] VITALS: BP 121/66; PULSE 68; RESP 17; TEMP 36.9; O2SAT 99
--- NOTE | 2020-09-12 09:26 | P.HP_ITS ---
Providers/Chief Complaint Admitting Physician: Salomon Lazaro DO Chief Complaint: SUICIDAL HPI NPU History of Present Illness Ren Crenshaw is a 50 year old male with reported history of schizophrenia presented to the emergency department endorsing suicidal ideation, depressive symptoms, auditory hallucinations although was evasive during initial evaluation with providing details with regards to the nature of these complaints although he does report multiple ongoing life stressors, unstable living arrangement, financial stressors, recent break-up. Emergency department work-up was reviewed. Patient has multiple past psychiatric hospitalizations at this facility with last admission being in January 2020 at which time concerns about malingering were also present but patient had similar presentation with evasive posture with regards to answering questions at that time as well. Continues to report depressive symptoms, low mood, decreased energy and interest which is exacerbated by ongoing stressors. Currently denying any suicidal ideation but reports recent suicidal thoughts, states that he has attempted in the past but it has been over a couple years since last suicide attempt. Denies past or recent hypomanic or manic episodes Patient reports intermittent auditory hallucinations but does not provide any details with regards to what he hears and denies any command auditory hallucinations. Denies any visual destinations. Denies any delusions although in the emergency department said that he thought that there was a chip implanted in his head. Currently denying any of these delusions. Patient denies any other exacerbating or mitigating factors, denies any substance use, denies any alcohol use. Patient reports being treated with Seroquel prescribed by his primary care but denies any recent outpatient psychiatric follow-up. Review of Systems General: Reports: 10 or more systems reviewed and unremarkable except in HPI and below Meds NPU Home Medications Medication Instructions Recorded Confirmed Last Taken Type No Known Home Medications 09/12/20 09/12/20 Unknown History Allergies Allergy/AdvReac Type Severity Reaction Status Date / Time No Known Allergies Allergy Verified 01/28/20 15:30 PFSH NPU PFSH: Medical History Anxiety Social History Smoking and tobacco status: heavy tobacco smoker Alcohol intake: never Other Psychiatric History: Other Psychiatric History: States that he saw a psychiatrist in [place], states that it had been a while, states that his medication is currently filled by his primary care Reports multiple past psychiatric hospitalizations with last hospitalization at this facility in January 2020 Reports multiple past suicide attempts with trying to shoot himself, overdose, states last attempt was over a year ago Mental Status Exam MSE Comments: Appears older than stated age, unshaven, unkempt, tired appearing, lying in bed, fair eye contact Psychomotor activity is decreased, no agitation Speech is low volume, somewhat slow rate, fair articulation, not pressured I feel tired, congruent affect, not labile Alert, oriented to person, place, time, situation Memory and concentration appear to be fair given poor effort Intellectual functioning appears to be average at best based on vocabulary, interview Thought process, linear, no flight of ideas, no looseness of associations Thought content, no delusions, no hallucinations, no suicidal or homicidal ideation Insight and judgment appear to be fair Vitals/I&O/Wt Last Vital Signs Temp 98.4 F 09/12/20 06:00 Pulse 68 09/12/20 06:00 Resp 17 09/12/20 06:00 BP 121/66 09/12/20 06:00 Pulse Ox 99 09/12/20 06:00 Weight last 48 hrs Weight 89.358 kg Data NPU : 09/11/20 16:00 09/11/20 16:00 A&P Assessment and plan (1) Suicidal ideation: Status: Acute (2) Acute psychosis: Status: Acute Additional A&P Information Unclear with regards to recent events and patient's presentation requesting hospitalization currently stating that he only wanted to get some sleep, denying any auditory hallucinations at this time and does not appear to be disorganized in his speech, thoughts or behavior although he reportedly has a diagnosis of schizophrenia and treatment with Seroquel. Urine drug screen was negative and patient states that he does not use any substances to account for any psychotic symptoms. Patient reports recent stressor of break-up with partner and reports ongoing depressive symptoms but currently denying any suicidal ideation was evasive in the emergency department with regards to the nature, intent or any plan. Patient with past diagnoses of malingering, cluster B personality. Patient would benefit from observation, medication stabilization and coordination for outpatient therapy which would likely help most with targeting development of more adaptive coping strategies in the context of his ongoing stressors. INVOLUNTARY ADMIT to inpatient psychiatry START olanzapine 10 mg at bedtime targeting psychotic symptoms START fluoxetine 10 mg daily targeting depressive symptoms Encourage patient to participate in unit activities to include group sessions, unit milieu Coordinate with psychiatric social worker supervisor for post discharge mental health care follow-up Involuntary Hold Information 96 Hour Hold: 96 Hour Involuntary Admission: Yes 96 Hour Hold Ending Date: 09/17/20 96 Hour Hold Ending Time: 17:00 Attestations NPU Medical Necessity Statement*: Psychiatric hospitalization indicated for medication stabilization, coordination for safe discharge Anticipate hospital stay to exceed 2 midnights Time Spent in Patient Care: Greater than 35 minutes (>than 50% of time spent in counselling and/or direct pt care on unit) . Coding Level of Care Code Acute Ply Cutter for Vitaly Fwd Diagnoses Suicidal ideation R45.851 Acute psychosis F23
[2020-09-12] MEDS: fluoxetine 10 mg Capsule PO (09:51)
[2020-09-12 14:00] VITALS: BP 121/66; PULSE 68; RESP 17; TEMP 36.9; O2SAT 99
[2020-09-12] MEDS: nicotine 2 mg Gum BUCCAL (18:04)
[2020-09-12 18:51] VITALS: BP 117/70; PULSE 68; RESP 20; TEMP 37; O2SAT 96
[2020-09-12] MEDS: OLANZapine 10 mg TABLET PO (20:26)
[2020-09-12] MEDS: trazodone 50 mg Tablet PO (20:26)
[2020-09-12] MEDS: acetaminophen 325 mg Tablet 650 MG PO (20:26)
[2020-09-12 21:21] VITALS: BP 119/74; PULSE 70; RESP 18; TEMP 36.8; O2SAT 95
--- NOTE | 2020-09-12 23:41 | PC.NURSE ---
Addendum entered by Grazyna Coulter LPN 09/12/20 23:44: 2025 Administered Trazadone 50 mg for a sleeping aid. will continue to monitor this pt. 2099 follow up, pt is sleeping Original Note: PRN 2025 Administered Tylenol for pt c/o pain, 5/10 on pain scale. Will continue to monitor pt until end of shift. 2099 follow up: pt is sleeping in bed.
[2020-09-13 06:00] VITALS: BP 125/75; PULSE 77; RESP 18; TEMP 36.5; O2SAT 96
[2020-09-13] MEDS: fluoxetine 10 mg Capsule PO (08:27)
--- NOTE | 2020-09-13 12:07 | PM.NPN ---
Subjective NPU Subjective: Interval history: Continues to report intermittent depressive symptoms but states overall feeling better Denies any interval auditory or visual destinations, denies any delusions Reports tolerating medication well, no medication side effects Reports improved sleep Reports good appetite Mental Status Exam MSE Comments: Appropriately groomed and dressed wearing hospital scrubs, calm, cooperative, interactive, good eye contact Psychomotor activity is neither increased nor decreased, no agitation Speech is normal volume, normal rate, fair articulation, not pressured I feel little better, congruent affect, not labile Alert, oriented to person, place, time, situation Memory and concentration appear to be fair given poor effort Thought process, linear, no flight of ideas, no looseness of associations Thought content, no delusions, no hallucinations, no suicidal or homicidal ideation Insight and judgment appear to be fair Vitals/I&O/Wt Last Vital Signs Temp 97.7 F 09/13/20 06:00 Pulse 77 09/13/20 06:00 Resp 18 09/13/20 06:00 BP 125/75 09/13/20 06:00 Pulse Ox 96 09/13/20 06:00 Weight last 48 hrs Weight 89.358 kg Data NPU : 09/11/20 16:00 09/11/20 16:00 A&P Assessment and plan (1) Acute psychosis: Status: Acute (2) Suicidal ideation: Status: Acute (3) Cluster B personality disorder in adult: Status: Acute Additional A&P Information Improving, tolerating medication with no reports of any medication side effects CONTINUE current medication, continue to monitor Coordinate with social service technician for post discharge mental health follow-up Involuntary Hold Information 96 Hour Hold: 96 Hour Involuntary Admission: Yes 96 Hour Hold Ending Date: 09/17/20 96 Hour Hold Ending Time: 17:00 Attestations NPU Medical Necessity Statement*: Continues to require psychiatric hospitalization for medication stabilization, coordination for safe discharge Coding Level of Care Code Acute Support Services Coordinator for rosa maria Fwd Diagnoses Acute psychosis F23 Suicidal ideation R45.851 Cluster B personality disorder in adult F60.9
[2020-09-13 14:00] VITALS: BP 113/74; PULSE 98; RESP 17; TEMP 36.9; O2SAT 93
[2020-09-13] MEDS: OLANZapine 10 mg TABLET PO (19:42)
[2020-09-13 20:00] VITALS: BP 151/95; PULSE 85; RESP 16; TEMP 36.6; O2SAT 95
[2020-09-13] MEDS: trazodone 50 mg Tablet PO (21:40)
--- NOTE | 2020-09-13 21:43 | PC.NURSE ---
pt came to desk inquiring why a 2nd UA was needed, after looking at his 1st UA results, pt was reassured that it was due to the abnormal results of his first UA. pt provided 2nd UA.
[2020-09-13 23:01] LABS: Add Urine Microscopic? YES; Bilirubin Urine Neg (Negative); Blood Urine 3+ (Negative); Glucose Urine UA Norm (Normal); Ketones Urine Negative (Negative); Leukocyte Esterase Urine Negative (Negative); Nitrate Urine Negative (Negative); Protein Urine Neg (Negative); Specific Gravity, Urine 1.025 (1.005-1.030); Urine Appearance Clear (CLEAR); Urine Color Yellow (Yellow); Urobilinogen Urine Norm (Negative); pH Urine 5 (5-7)
[2020-09-13 23:02] LABS: Add Urine Culture? Yes; Bacteria Urine 1+ /hpf; RBC Urine 15-25 /hpf (0-2); Squamous Epithelial Cell Urine 0-4 /hpf (0-5); WBC Urine 15-25 /hpf (0-5)
[2020-09-14 06:00] VITALS: BP 126/76; PULSE 68; RESP 16; TEMP 36.8; O2SAT 97
[2020-09-14] MEDS: fluoxetine 10 mg Capsule PO (07:56)
[2020-09-14 09:06] VITALS: BP 126/76; PULSE 68; RESP 16; TEMP 36.8; O2SAT 97
--- NOTE | 2020-09-14 09:23 | P.DS_ITS ---
Diagnoses at Discharge Discharge Diagnosis (1) Acute psychosis: Status: Acute (2) Suicidal ideation: Status: Acute (3) Cluster B personality disorder in adult: Status: Acute Reason for Visit Reason for Visit: SUICIDAL Hospital Course Hospital Course 50 year old male with reported history of schizophrenia presented to the emergency department endorsing suicidal ideation, depressive symptoms, auditory hallucinations although was evasive during initial evaluation with providing det ails with regards to the nature of these complaints although he does report multiple ongoing life stressors, unstable living arrangement, financial stressors, recent break-up. Patient began to reconstitute after starting bedtime olanzapine 10 mg with no reports of any medication side effects. Patient subsequently denying any auditory or visual destinations and denied any delusions. Patient participated in unit milieu with no reports of any behavioral disturbances. Patient was not suicidal at the time of discharge and did not endorse any psychotic symptoms and did not appear to pose an imminent threat of harm to self or others. Low to moderate risk of harm to self or others given no current psychotic symptoms and no current suicidal or homicidal ideation and patient reports not doing any substances or alcohol although his risk may be elevated if he becomes noncompliant with his medication or medication management follow-up resulting in the return and worsening of psychotic symptoms. Risk mitigation included psychiatric hospitalization, medication stabilization as well as recommendation to continue compliance with medication, medication management follow-up. Patient communicated his understanding of need to maintain compliance with his medication, medication management follow-up in order to further mitigate his risk of harm to self and others. Involuntary Hold Information 96 Hour Hold: 96 Hour Involuntary Admission: Yes 96 Hour Hold Ending Date: 09/17/20 96 Hour Hold Ending Time: 17:00 Mental Status Exam MSE Comments: Sitting on his bed in his room, polite, interactive, appropriately groomed and dressed wearing hospital scrubs, good eye contact Psychomotor activity is neither increased nor decreased, no agitation Speech is normal volume, normal rate, fair articulation, not pressured I feel good, congruent affect, not labile Alert, oriented to person, place, time, situation Memory and concentration appear to be intact Thought process, linear, no flight of ideas, no looseness of associations Thought content, no delusions, no hallucinations, no suicidal or homicidal ideation Insight and judgment appear to be fair to intact Discharge Data Data Completed and Pending: Completed Studies During Hospitalization Category Date Time Status XR cervical spine 3V* [id number] Stat Exams 09/11/20 17:04 Completed XR chest 1V og ble [id number] Urgent Exams 09/11/20 15:44 Completed Pending at discharge Category Date Time Status Urine Culture Rou darian Lab 09/13/20 21:40 Received Labs from last 24 hours 09/13/20 21:40 Urine Color Yellow Urine Appearance Clear Urine pH 5 Ur Specific Gravit y 1.025 Urine Protein Neg Urine Glucose (UA) Norm Urine Ketones Negative Urine Blood 3+ H Urine Nitrate Negative Urine Bilirubin Neg Urine Urobilinogen Norm Ur Leukocyte Remedios ase Negative Urine RBC 15-25 H Urine WBC 15-25 H Ur Squamous Epith Cells 0-4 H Amorphous Sediment Not Reportable Urine Bacteria 1+ H Vitals: Last Vital Signs Temp 98.2 F 09/14/20 09:06 Pulse 68 09/14/20 09:06 Resp 16 09/14/20 09:06 BP 126/76 09/14/20 09:06 Pulse Ox 97 09/14/20 09:06 Discharge Plan Discharge Patient Disposition: Home Condition: Stable Prescriptions: New olanzapine 10 mg Tablet 10 mg PO BEDTIME Qty: 30 RF: 0 fluoxetine 10 mg Capsule 10 mg PO DAILY Qty: 30 RF: 0 Discharge Orders: Discharge Order (Routine); Ordered 09/14/20 Ordered By: Salomon Lazaro Referrals: [facility] [Outside] (Walk in between 7:30 AM and 3:00 PM. ) Discharge Diet: Regular Discharge Activity: Resume usual activity Patient Instructions: Fluoxetine (By mouth), Olanzapine (By mouth), Opioid Safety Discharge Attestations NPU Time Spent in Discharge Care*: greater than 30 min Status at Discharge: Cognitive status at discharge: cognitively intact , Behavioral status at discharge: cooperative , Functional status at discharge: independent ambulation Overall status at discharge: patient is back to baseline Coding Level of Care Code Acute Chg FW DC note Diagnoses Acute psychosis F23 Suicidal ideation R45.851 Cluster B personality disorder in adult F60.9
--- NOTE | 2020-09-14 15:15 | PC.RESP ---
Smoking Cessation information sent to patient.
== END 2020-09-14 10:40 | disposition home or self-care (01) | DRG 885 ==
LOC: ER 18:28 → NP 18:43
PROVIDERS: Admitting Provider Psychiatry & Neurology Psychiatry; Emergency Provider Family Medicine; Visit Provider Psychiatry & Neurology Psychiatry
DX: F23 Brief psychotic disorder (principal); R45.851 Suicidal ideations; F17.210 Nicotine dependence, cigarettes, uncomplicated; F60.89 Other specific personality disorders; Z86.59 Personal history of other mental and behavioral disorders
CPT/HCPCS: 36415; 71045; 72040; 80053; 80178; 80306; 80307; 81001; 84443; 85025; 87086; 93005; 96372; 99285; J1630

== ENCOUNTER 2020-12-15 10:15 | Emergency (ER) | payer SELFPAY ==
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
[2020-12-15 10:30] VITALS: BP 145/94; PULSE 84; RESP 18; TEMP 36.8; O2SAT 97; BMI 33.3
[2020-12-15 10:37] VITALS: BP 154/94; PULSE 96; RESP 18; O2SAT 97
[2020-12-15] MEDS: morphine 4 mg/mL SDV 1 mL IM (10:37)
[2020-12-15] MEDS: HYDROmorphone 1 mg/mL INJ 1 mL SUBCUT (12:33)
[2020-12-15] MEDS: neomycin-poly-bacitracin oint 0.9 gm Pkt 1 APPLIC TOPICAL (12:34)
[2020-12-15 12:52] VITALS: BP 166/99; PULSE 71; O2SAT 97
[2020-12-15 13:14] VITALS: BP 166/99; PULSE 71; O2SAT 97
== END 2020-12-15 13:18 | disposition home or self-care (01) ==
PROVIDERS: Emergency Provider Physician Assistant
DX: T23.202A Burn of second degree of left hand, unspecified site, initial encounter (principal); X10.2XXA Contact with fats and cooking oils, initial encounter; F17.210 Nicotine dependence, cigarettes, uncomplicated
CPT/HCPCS: 96372; 99283; J1170; J2270

== ENCOUNTER 2021-06-28 12:58 | Outpatient (CLI) | payer BC, SELFPAY ==
--- NOTE | 2021-06-28 13:11 | CT_ITS ---
WS: [id number] CT ABDOMEN AND PELVIS NONCONTRAST HISTORY: FLANK PAIN/DYSURIA/FEVER TECHNIQUE: Imaging performed through the abdomen and pelvis. Coronal and sagittal reformats are submi tted. All CT scans at [facility] use at least one of these dose optimization techniques: auto mated exposure control; mA and/or kV adjustment per patient size (includes targeted exams where dose is matched to clinical indication); or iterative reconstruction. DLP: 1283.48 mGy.cm COMPARISON: 10/26/2019 Lower thorax: Lung bases are clear. Heart is slightly enlarged. Small hiatal hernia. Liver: Liver is mildly enlarged. No bile duct dilatation. Gallbladder: Normal gallbladder. Pancreas: Normal size and attenuation. Normal pancreatic duct. No pancreatitis or mass. Spleen: Normal. Adrenal glands: Normal. No mass. Right kidney: Low-attenuation nodule measures 17 mm in the mid to lower RIGHT kidney. Noted on a prio r CT to be a cyst. No obstruction. Left kidney: Enlarged and mildly edematous LEFT kidney with perinephric stranding. There are multiple large calcifications centrally in the renal pelvis and proximal ureter. Largest calcification measur es 2.3 x 1.5 cm. These calcifications are causing a mild obstruction and mild dilatation of the calyc es. There is also thickening and stranding in the central renal pelvis and around the proximal ureter . There are a few enlarged lymph nodes in the retroperitoneum at the level of the LEFT kidney indicat ing reactive process. These calcifications were present on the prior study from 10/26/2019 but have in creased in size. Aorta: Mild atherosclerosis abdominal aorta with no aneurysm. GI tract: Jaundice distended stomach. No small bowel obstruction. There are numerous diverticula begi nning in the descending colon to the sigmoid colon. There is actually mild inflammation involving the sigmoid colon suggesting. Mild changes of diverticulitis in the infraumbilical region. 5 mm polyp ve rsus adherent stool along the RIGHT lateral rectal wall. Normal appendix. Abdominal wall: Negative. No hernia. Pelvis: No free fluid. Urinary bladder is only mildly distended. Inguinal canals are patent bilateral ly containing fat. Osseous structures: Unremarkable. CT/CT kidney stone [id number] IMPRESSION: 1. Abnormal LEFT kidney. Edematous LEFT kidney with mild central obstruction d ue to several large stones in the renal pelvis and UP junction. The largest roseann cification measures 2.3 x 1.5 cm. There is also inflammation and uroepithelial thickening and a few small adjacent reactive lymph nodes. Findings consistent w ith UTI/pyonephritis. Consult urology for removal of the stones. 2. Diverticulosis within the descending and sigmoid colon. Early changes of mi ld acute diverticulitis in the mid sigmoid. No abscess. 3. Normal appendix. 4. 6 mm polyp versus adherent fecal material along the RIGHT lateral rectal wa ll. Colonoscopy would be beneficial. Notified Marisela Partida MD at 06/28/2021 4:10 PM.
== END 2021-06-28 12:59 | disposition home or self-care (01) ==
LOC: RAD 13:01
PROVIDERS: Visit Provider Internal Medicine
DX: R10.9 Unspecified abdominal pain (principal); R30.0 Dysuria; R50.9 Fever, unspecified; R60.0 Localized edema; K57.30 Diverticulosis of large intestine without perforation or abscess without bleeding
CPT/HCPCS: 74176

== ENCOUNTER 2021-11-19 11:57 | Emergency (ER) | payer BC, MEDICAID, SELFPAY ==
[2021-11-19 12:22] VITALS: PULSE 104; RESP 20; TEMP 36.8; BMI 33.1
[2021-11-19 13:48] VITALS: BP 123/85; PULSE 94; RESP 20; O2SAT 96
[2021-11-19 14:23] VITALS: RESP 18
[2021-11-19] MEDS: morphine 4 mg/mL SDV 1 mL IVP (14:23)
[2021-11-19] MEDS: sodium chloride 0.9% 1,000 ML 999 ML IV (14:24)
[2021-11-19] MEDS: ondansetron 2 mg/ML SDV 2 mL 4 MG IVP (14:24)
--- NOTE | 2021-11-19 14:31 | ED_ITS ---
HPI - Nausea/Vomiting/Diarrhea General: Chief complaint: Nausea/Vomiting/Diarrhea Stated complaint: n/v/d; sent by Dr. Christensen Time Seen by Provider: 11/19/21 13:14 Source: patient Mode of arrival: ambulatory Limitations: no limitations History of Present Illness: 51-year-old male who states that over the last 2 days he been having some abdominal cramping along with nausea vomiting and diarrhea. He states he had multiple episodes of vomiting diarrhea with no improvement. He had some slight blood in his stool denies any fever denies any worsening improving factors. Associated nausea: Yes Associated symtoms: Reports nausea; Denies chest pain, dysuria or headache(s) Review of Systems Const: Denies: fever(s), chills, body aches or change in appetite Eyes: Denies: blurry vision or eye discomfort ENMT: Denies: throat pain or dental pain Card: Denies: chest pain Resp: Denies: dyspnea GI: Reports: nausea, vomiting and diarrhea : Denies: dysuria Musc: Denies: neck pain or back pain Skin/Breast: Denies: rash Neuro: Denies: headache(s) Psych: Denies: depression Olvin/Lymph: Denies: easy bruising All/Imm: Denies: urticaria PFSH ED PFSH: Medical History (Updated 11/19/21 @ 16:06 by Dina Moore MD) Anxiety Social History Smoking and tobacco status: heavy tobacco smoker Alcohol intake: never Physical Exam Const: COMMON NORMALS: no acute distress, patient oriented x3 and healthy appearing HENMT: COMMON NORMALS: normocephalic and atraumatic HEAD & SCALP: normocephalic and atraumatic Eye: COMMON NORMALS: Equal, round and reactive pupils present and EOMs intact bilaterally PUPIL: Yes Equal, round and reactive pupils present Neck/C-Spine: COMMON NORMALS: full ROM and supple Chest: COMMONS NORMALS: normal inspection of the chest and normal palpation of entire chest wall Resp: COMMON NORMALS: normal respiratory effort, No retractions, No use of accessory muscles and clear to auscultation bilaterally AUSCULTATION: clear to auscultation bilaterally Cardio: COMMON NORMALS: regular rate, regular rhythm and No murmurs present (Cardio) RATE: regular rate RHYTHM: regular rhythm GI: COMMON NORMALS: Normal to inspection, nondistended, normoactive bowel sounds present, Soft to palpation, non-tender and no masses PALPATION: Yes Soft to palpation Extremity: COMMON NORMALS: normal to inspection and full ROM Neuro: COMMON NORMALS: patient oriented x3, moves all extremities and no focal motor deficits Psych: COMMON NORMALS: mental status grossly normal, Normal thought process present and cooperative THOUGHT PROCESS: Normal thought process present Skin: COMMON NORMALS: no rashes or lesions noted and no wounds GENERAL SKIN EXAM: no rashes or lesions noted Course Vital Signs: Vital signs: Vital Signs Temperature 98.3 F 11/19/21 12: Pulse Rate 89 11/19/21 15:56 Respiratory Rate 18 11/19/21 14:23 Blood Pressure 123/85 11/19/21 15:56 Pulse Oximetry 96 11/19/21 15:56 Oxygen Delivery Me thod 11/19/21 15:56 MDM - Nausea/Vomiting/Diarrhea Medical Decision Making Patient presents with vomiting diarrhea he was able to get his stools specimen will follow cultures his white count here is normal blood counts normal his abdominal exam is benign electrolytes are normal as well he felt improved after fluids along with Zofran we will prescribe him Zofran for home he is to follow- up with PCP and return if worsening he understands agrees to plan. Lab Data : 11/19/21 14:11 11/19/21 14:11 Laboratory Results WBC 9.0 10^3/uL (4.0-10.0) 11/19/21 14:11 RBC 5.96 10^6/uL (4.1-5.3) H 11/19/21 14:11 Hgb 16.6 g/dL (11.7-16.6) 11/19/21 14:11 Hct 50.6 % (42.0-52.0) 11/19/21 14:11 MCV 84.9 fl (80-94) 11/19/21 14:11 MCH 27.9 pg (28.0-34.0) L 11/19/21 14:11 MCHC 32.8 g/dL (30.0-36.0) 11/19/21 14:11 RDW 14.6 % (12.1-15.1) 11/19/21 14:11 Plt Count 330 10^3/cmm (130-400) 11/19/21 14:11 MPV 11.4 fL (7.4-10.4) H 11/19/21 14:11 Neut % (Auto) 55.3 % 11/19/21 14:11 Lymph % (Auto) 17.7 % 11/19/21 14:11 [place] % (Auto) 25.0 % 11/19/21 14:11 Eos % (Auto) 0.9 % 11/19/21 14:11 Baso % (Auto) 0.9 % 11/19/21 14:11 Neut # (Auto) 4.95 10^3/uL (1.8-7.7) 11/19/21 14:11 Lymph # (Auto) 1.6 10^3/uL (0.8-4.8) 11/19/21 14:11 [place] # (Auto) 2.2 10^3/uL (0.2-0.9) H 11/19/21 14:11 Eos # (Auto) 0.1 10^3/uL (0.0-0.8) 11/19/21 14:11 Baso # (Auto) 0.1 10^3/uL (0.0-0.1) 11/19/21 14:11 Nucleated RBC % (auto) 0 % 11/19/21 14:11 Nucleated RBCs # 0.0 /100WBC 11/19/21 14:11 Sodium 135 mmol/L (136-145) L 11/19/21 14:11 Potassium 3.7 mmol/L (3.5-5.1) 11/19/21 14:11 Chloride 99 mmol/L (98-107) 11/19/21 14:11 Carbon Dioxide 21 mmol/L (22-29) L 11/19/21 14:11 Anion Gap 18.7 (5-19) 11/19/21 14:11 BUN 11 mg/dL (6-20) 11/19/21 14:11 Creatinine 1.1 mg/dL (0.7-1.2) 11/19/21 14:11 GFR Calculation 70.6 mL/min (90-130) L 11/19/21 14:11 Glucose 99 mg/dL (65-115) 11/19/21 14:11 Calculated Osmolality 279 mOsm/kg (285-295) L 11/19/21 14:11 Calcium 10.0 mg/dL (8.5-10.5) 11/19/21 14:11 Total Bilirubin 0.6 mg/dL (0.15-1.2) 11/19/21 14:11 AST 15 U/L (0-40) 11/19/21 14:11 ALT 17 U/L (0-41) 11/19/21 14:11 Alkaline Phosphatase 90 IU/L (40-130) 11/19/21 14:11 Total Protein 8.2 g/dL (6.6-8.7) 11/19/21 14:11 Albumin 3.9 g/dL (3.5-5.2) 11/19/21 14:11 Globulin 4.3 g/dL (1.3-4.6) 11/19/21 14:11 Lipase 10 U/L (13-60) L 11/19/21 14:11 Urine Color Yellow (Yellow) 11/19/21 14:49 Urine Appearance Clear (CLEAR) 11/19/21 14:49 Urine pH 5 (5-7) 11/19/21 14:49 Ur Specific [place] 1.015 (1.005-1.030) 11/19/21 14:49 Urine Protein 1+ (Negative) H 11/19/21 14:49 Urine Glucose (UA) Norm (Normal) 11/19/21 14:49 Urine Ketones 1+ (Negative) H 11/19/21 14:49 Urine Blood 3+ (Negative) H 11/19/21 14:49 Urine Nitrate Negative (Negative) 11/19/21 14:49 Urine Bilirubin 1+ (Negative) H 11/19/21 14:49 Urine Urobilinogen Norm mg/dL (Negative) 11/19/21 14:49 Ur Leukocyte Esterase 1+ (Negative) H 11/19/21 14:49 Urine RBC 0-4 /hpf (0-2) H 11/19/21 14:49 Urine WBC 0-4 /hpf (0-5) H 11/19/21 14:49 Ur Squamous Epith Cells 0-4 /hpf (0-5) H 11/19/21 14:49 Amorphous Sediment Not Reportable 11/19/21 14:49 Urine Bacteria Trace /hpf (NONE) 11/19/21 14:49 Hyaline Casts 5-10 /lpf H 11/19/21 14:49 SARS-CoV-2 Ag (Rapid) Negative (Negative) 11/19/21 14:32 Discharge Plan Discharge Patient Disposition: Home Clinical Impression: Vomiting, Diarrhea Condition: Stable Prescriptions: New ondansetron 4 mg tablet,disintegrating 4 mg PO Q6H PRN (Reason: nausea and vomiting) Qty: 14 0RF No Action quetiapine 200 mg tablet 200 mg PO BEDTIME Discharge Orders: Discharge ED (Routine); Ordered 11/19/21 Ordered By: Dina Moore Referrals: Artur Christensen MD [Primary Care Provider] - 1-3 days Discharge Diet: Advance as tolerated Discharge Activity: Resume usual activity Patient Instructions: Acute Nausea and Vomiting (ED) Coding Level of Care Code ED [facility] Counselor for [facility] Fwd Exam Comprehensive
[2021-11-19 14:37] VITALS: PULSE 91; O2SAT 96
[2021-11-19 14:44] LABS: Basophils # 0.1 10^3/uL (0.0-0.1); Basophils % 0.9 %; Eosinophils # 0.1 10^3/uL (0.0-0.8); Eosinophils % 0.9 %; Hematocrit 50.6 % (42.0-52.0); Hemoglobin 16.6 g/dL (11.7-16.6); Lymphocytes # 1.6 10^3/uL (0.8-4.8); Lymphocytes % 17.7 %; Mean Corpuscular HGB Conc 32.8 g/dL (30.0-36.0); Mean Corpuscular Hemoglobin 27.9 pg (28.0-34.0); Mean Corpuscular Volume 84.9 fl (80-94); Mean Platelet Volume 11.4 fL (7.4-10.4); Monocytes # 2.2 10^3/uL (0.2-0.9); Neutrophils # 4.95 10^3/uL (1.8-7.7); Neutrophils % 55.3 %; Nucleated Red Blood Cells % 0 %; Platelet Count 330 10^3/cmm (130-400); Red Blood Count 5.96 10^6/uL (4.1-5.3); Red Cell Distribution Width 14.6 % (12.1-15.1)
[2021-11-19 15:01] LABS: SARS Covid-2 Antigen Negative (Negative)
[2021-11-19 15:16] LABS: Alanine Aminotransferase 17 U/L (0-41); Albumin Level 3.9 g/dL (3.5-5.2); Alkaline Phosphatase 90 IU/L (40-130); Anion Gap 18.7 (5-19); Aspartate Amino Transferase 15 U/L (0-40); Blood Urea Nitrogen 11 mg/dL (6-20); Carbon Dioxide 21 mmol/L (22-29); Chloride 99 mmol/L (98-107); Globulin 4.3 g/dL (1.3-4.6); Glomerular Filtration Rate 70.6 mL/min (90-130); Glucose 99 mg/dL (65-115); Lipase 10 U/L (13-60); Osmolality Calculated 279 mOsm/kg (285-295); Potassium 3.7 mmol/L (3.5-5.1); Sodium 135 mmol/L (136-145); Total Bilirubin 0.6 mg/dL (0.15-1.2); Total Protein 8.2 g/dL (6.6-8.7)
[2021-11-19 15:26] LABS: Add Urine Microscopic? YES; Bilirubin Urine 1+ (Negative); Blood Urine 3+ (Negative); Glucose Urine UA Norm (Normal); Ketones Urine 1+ (Negative); Leukocyte Esterase Urine 1+ (Negative); Nitrate Urine Negative (Negative); Protein Urine 1+ (Negative); Specific Gravity, Urine 1.015 (1.005-1.030); Urine Appearance Clear (CLEAR); Urine Color Yellow (Yellow); Urobilinogen Urine Norm (Negative); pH Urine 5 (5-7)
[2021-11-19 15:35] LABS: Bacteria Urine TRACE /hpf; RBC Urine 0-4 /hpf (0-2); Squamous Epithelial Cell Urine 0-4 /hpf (0-5); WBC Urine 0-4 /hpf (0-5)
[2021-11-19 15:36] LABS: Add Urine Culture? Yes
[2021-11-19 15:56] VITALS: BP 123/85; PULSE 89; O2SAT 96
--- NOTE | 2021-11-20 09:30 | PC.NURSE ---
pt notified of positive c-diff culture prescription for Vanc PO 125mg QID x 10days called into [facility] pharmacy per Chuck
== END 2021-11-19 16:17 | disposition home or self-care (01) ==
PROVIDERS: Emergency Provider Emergency Medicine; PCP Family Medicine
DX: R11.11 Vomiting without nausea (principal); R19.7 Diarrhea, unspecified; Z20.822 Contact with and (suspected) exposure to COVID-19; F17.210 Nicotine dependence, cigarettes, uncomplicated
CPT/HCPCS: 80053; 81001; 83690; 85025; 87086; 87426; 87493; 87506; 96361; 96374; 96375; 99284; J2270; J2405; J7030

== ENCOUNTER 2023-01-17 08:37 | Outpatient (CLI) | payer BC, MEDICAID, SELFPAY ==
--- NOTE | 2023-01-17 08:43 | CT_ITS ---
WS: [id number] LDCT LUNG CANCER SCREENING TECHNIQUE: Noncontrast CT of the chest with coronal and sagittal reformatted images. CLINICAL INFORMATION: NICOTINE DEPENDENCE, CIGARETTES COMPARISON: None. DLP: 108.20 mGy.cm DIvol: Mean CTDIvol: 2.50 (mGy) All CT scans at [facility] use at least one of these dose optimization techniques: automat ed exposure control; mA and/or kV adjustment per patient size (includes targeted exams where dose is matched to clinical indication); or iterative reconstruction. FINDINGS: No acute pulmonary infiltrates. No focal pneumonia or pleural fluid. Slight subsegmental at electasis in the lingula. No suspicious pulmonary parenchymal normalities. Normal caliber thoracic aorta. Coronary calcification. No mediastinal or hilar lymphadenopathy. No ax illary lymphadenopathy. Adrenal glands are normal. Tiny esophageal hiatal hernia. Small splenule. Hyp ertrophic changes thoracic spine. IMPRESSION: CT/CT lung screening [id number] LUNG-RADS: 2-Benign Appearance or Behavior FOLLOW UP: 12 Month: Continue annual screening with LDCT
== END 2023-01-17 08:38 | disposition home or self-care (01) ==
LOC: RAD 08:37
PROVIDERS: PCP Family Medicine; Visit Provider Family Medicine
DX: Z12.2 Encounter for screening for malignant neoplasm of respiratory organs (principal); F17.210 Nicotine dependence, cigarettes, uncomplicated
CPT/HCPCS: 71271

== ENCOUNTER 2023-05-31 06:30 | Day surgery (SDC) | payer BC, MEDICAID, SELFPAY ==
[2023-05-31 06:44] VITALS: BP 139/86; PULSE 76; RESP 18; TEMP 36.5; O2SAT 95; BMI 36.6
[2023-05-31] MEDS: sodium chloride 0.9% 1,000 ML 30 ML IV (06:54)
--- NOTE | 2023-05-31 07:10 | ANES.PREANE2 ---
Pre-Anesthetic Assessment Height/Weight: Height 1.65 m Weight 99.79 kg Temp Pulse Resp BP Pulse Ox O2 Del Method 97.7 F 76 18 139/86 95 Room Air 05/31/23 06:44 05/31/23 06:44 05/31/23 06:44 05/31/23 06:44 05/31/23 06:44 05/31/23 06:44 Preop Diagnosis: screening Operation Date: 05/31/23 07:30 Proposed Procedures p 56085 colon G0121 screen colon A risk Z12.11(Not Applicable) - Jersey Saldivar DO Was Beta Cristian taken within 24 hours: N/A Was Clonidine taken within 24 hours: N/A Last intake: Intake Last Liquid Date 05/30/23 Last Liquid Time 23:30 Last Solid Date 05/29/23 Last Solid Time 18:00 Last Intake: 22:00 Social Tobacco Exam alert, oriented x 3, clear to auscultation bilaterally and regular rate & rhythm Airway Submandibular: within normal limits Cervical ROM: within normal limits Mallampati: Class II Dentition: full History/ROS No significant history except as noted and No significant complaints Pulmonary None reported CV/HEM None reported None reported Hepatic None reported GI None reported Metabolic None reported Musc/skel None reported Neuropsych Bipolar schiz multi personality disorder Anesthetic Plan ASA status: 2 Anesthesia: MAC Medications/Allergies Home Medications Medication Instructions Recorded Confirmed Last Taken Type quetiapine 200 mg tablet 200 mg PO BEDTIME 12/15/20 05/29/23 05/30/23 History Allergies Allergy/AdvReac Type Severity Reaction Status Date / Time No Known Allergies Allergy Verified 01/17/23 09:51 Current Medications Generic Name Dose Route Start Last Admin Trade Name Freq PRN Reason Stop Dose Admin Sodium Chloride 1,000 mls @ 30 mls/hr 05/31/23 06:45 05/31/23 06:54 Sodium Chloride 0.9% IV 06/01/23 06:44 30 mls/hr .Q24H JULIANE Administration PFSH Anesthesia Medical History Anxiety Family History Father Brain tumor (benign) Social History Smoking and tobacco/nicotine status: heavy tobacco/nicotine user Alcohol intake: never Substance/Drug Use: never Data Anesthesia Cardiac Studies: No Data to Display
--- NOTE | 2023-05-31 07:32 | PM.HP ---
Providers/Chief Complaint Primary Care Provider: Artur Christensen MD Chief Complaint: Z12.11 History of Present Illness Ren Crenshaw is a 53 year old male Review of Systems General: Reports: 10 or more systems reviewed and unremarkable except in HPI and below Medications/Allergies Home Medications Medication Instructions Recorded Confirmed Last Taken Type quetiapine 200 mg tablet 200 mg PO BEDTIME 12/15/20 05/29/23 05/30/23 History Allergies Allergy/AdvReac Type Severity Reaction Status Date / Time No Known Allergies Allergy Verified 01/17/23 09:51 PFSH Acute PFSH: Medical History Anxiety Family History Father Brain tumor (benign) Social History Smoking and tobacco/nicotine status: heavy tobacco/nicotine user Alcohol intake: never Substance/Drug Use: never Vitals/I&O/Wt Last Vital Signs Temp 97.7 F 05/31/23 06:44 Pulse 76 05/31/23 06:44 Resp 18 05/31/23 06:44 BP 139/86 05/31/23 06:44 Pulse Ox 95 05/31/23 06:44 O2 Del Method Room Air 05/31/23 06:44 Weight last 48 hrs Weight 220 lb A&P Assessment and plan (1) Colon cancer screening: Plan Colonoscopy Attestations Medical Necessity Statement*: Home Coding Level of Care Code Acute Code for Chg Fwd Diagnoses Colon cancer screening Z12.11
[2023-05-31 08:00] VITALS: BP 104/70; PULSE 69; RESP 18; TEMP 36.3; O2SAT 95
[2023-05-31 08:10] VITALS: BP 119/81; PULSE 71; RESP 18; O2SAT 95
[2023-05-31 08:19] VITALS: BP 126/86; PULSE 83; RESP 18; O2SAT 97
--- NOTE | 2023-05-31 08:30 | ANE.PACU2 ---
Inpatient post-anesthesia follow up: Airway intact: Yes Vital signs: Temperature 97.4 F Pulse Rate 83 Respiratory Rate 18 Blood Pressure 126/86 Pulse Oximetry 97 Oxygen Delivery Me thod Room Air Oxygen Flow Rate Fraction of Inspir ed Oxygen Hydration adequate: Yes Nausea and vomiting: No Pain level: 1 Mental status: Baseline
== END 2023-05-31 08:31 | disposition home or self-care (01) ==
PROVIDERS: PCP Family Medicine; Visit Provider Surgery
PROC: 0DJD8ZZ Inspection of Lower Intestinal Tract, Via Natural or Artificial Opening Endoscopic (ICD-10-PCS; CPT 45378; principal; 2023-05-31 07:30)
DX: Z12.11 Encounter for screening for malignant neoplasm of colon (principal); F17.200 Nicotine dependence, unspecified, uncomplicated; K57.30 Diverticulosis of large intestine without perforation or abscess without bleeding; D12.4 Benign neoplasm of descending colon; D12.3 Benign neoplasm of transverse colon; D12.8 Benign neoplasm of rectum; F41.9 Anxiety disorder, unspecified
CPT/HCPCS: 45385; 88305; J2704; J7030

== ENCOUNTER 2024-09-09 14:48 | Outpatient (CLI) | payer BC, MEDICAID, SELFPAY ==
--- NOTE | 2024-09-09 14:54 | XR_ITS ---
WS: [id number] XR knee RT 3V* [id number] REASON FOR EXAM: RIGHT KNEE JOINT PAIN FINDINGS: No fracture or focal bone lesion. There is a large bony exostosis extending from the mid anterior tibia extending superiorly and posteriorly. Ossifications in the soft tissues posterior to the mid tibia just inferior to the metadiaphysis. Medial knee joint space is intact with moderate subchondral sclerosis and osteophytosis. Calcification of the medial meniscus. There is flattening with a lateral downward slant of the lateral tibial plateau. There is moderate narrowing of the lateral joint space with significant subchondral sclerosis and osteophytosis. Patellofemoral joint space is intact with mild subchondral sclerosis and osteophytosis of the patella. XR/XR knee RT 3V* [id number] IMPRESSION: Significant, likely post traumatic osteoarthritis of the right knee as above.
--- NOTE | 2024-09-09 14:54 | XR_ITS ---
WS: [id number] XR lumbar spine 2-3V* [id number] REASON FOR EXAM: CHRONIC BACK PAIN FINDINGS: Relatively normal lumbar curvatures. Chronic appearing moderate biconcave compression deformities T11-L2. No focal vertebral body lesion. Mild narrowing of the intervertebral disc space at L2-L3. No spondylolysis. No significant spondylolisthesis. XR/XR lumbar spine 2-3V* [id number] IMPRESSION: Mild to moderate degenerative spondylosis as above.
== END 2024-09-09 14:49 | disposition home or self-care (01) ==
LOC: RAD 14:51
PROVIDERS: PCP Family Medicine; Visit Provider Family Medicine
DX: M47.896 Other spondylosis, lumbar region (principal); M25.561 Pain in right knee
CPT/HCPCS: 72100; 73562

== ENCOUNTER → 2024-09-26 13:28 | Outpatient (BNVA) | payer BC, MEDICAID, SELFPAY | PROVIDERS: PCP Family Medicine; Visit Provider Orthopaedic Surgery | DX: M25.561 Pain in right knee (principal); M17.11 Unilateral primary osteoarthritis, right knee; G89.29 Other chronic pain | CPT/HCPCS: 73560; 73565 ==

== ENCOUNTER 2024-10-01 11:14 | Day surgery (SDC) | payer BC, MEDICAID, SELFPAY ==
[2024-10-01 11:34] VITALS: BP 139/93; PULSE 95; RESP 18; TEMP 36.8; O2SAT 94; BMI 38.2
[2024-10-01] MEDS: sodium chloride 0.9% 1,000 ML 15 ML IV (11:46)
--- NOTE | 2024-10-01 12:10 | P.ANESASSM_ITS ---
Pre-Anesthetic Assessment Height/Weight: Height 1.65 m Weight 104.326 kg Temp Pulse Resp BP Pulse Ox O2 Del Method 98.2 F 95 18 139/93 94 Room Air 10/01/24 11:34 10/01/24 11:34 10/01/24 11:34 10/01/24 11:34 10/01/24 11:34 10/01/24 11:34 Operation Date: 10/01/24 12:15 Proposed Procedures p Colonoscopy 87401, Z12.11(Not Applicable) - Tima Palomino MD Familial anesthetic complications: None Was Beta Cristian taken within 24 hours: N/A Was Clonidine taken within 24 hours: N/A Last intake: Intake Last Liquid Date 09/30/24 Last Liquid Time 20:00 Last Solid Date 09/30/24 Last Solid Time 10:00 Social Tobacco and No alcohol Exam alert, oriented x 3, clear to auscultation bilaterally and regular rate & rhythm Airway Mallampati: Class III Dentition: full Anesthetic Plan ASA status: 2 Anesthesia: MAC Risk of > 500 ml blood loss (7ml/kg in children): No Medications/Allergies Home Medications ?Medication ?Instructions ?Recorded ?Confirmed ?Last Taken ?Type quetiapine 200 mg tablet 200 mg PO BEDTIME 12/15/20 0 09/30/24 09/30/24 History Allergies Allergy/AdvReac Type Severity Reaction Status Date / Time No Known Allergies Allergy Verified 09/26/24 13:29 Current Medications Generic Name Dose Route Start Last Admin Trade Name Freq PRN Reason Stop Dose Admin Sodium Chloride 1,000 mls @ 15 mls/hr 10/01/24 11:19 10/01/24 11:46 Sodium Chloride 0.9% IV 10/02/24 11:18 15 mls/hr .Q24H PRN Administration COLONOSCOPY FLUIDS PFSH Anesthesia Medical History Anxiety Family History Father Brain tumor (benign) Social History Smoking and tobacco/nicotine status: current every day tobacco/nicotine user Alcohol intake: never Substance/Drug Use: never
--- NOTE | 2024-10-01 12:16 | W.PM.OPSUD ---
Surgery/Procedure H&P Update DATE OF PROCEDURE: October 01, 2024 DATE H&P PERFORMED: 09/23/24 H&P UPDATE INFORMATION: I have reviewed H&P completed within last 30 days, I have examined patient prior to procedure and No changes to prior documentation PLANNED PROCEDURE: Operation Date: 10/01/24 12:15 Proposed Procedures p Colonoscopy 92010, Z12.11(Not Applicable) - Tima Palomino MD
[2024-10-01 12:38] VITALS: BP 105/74; PULSE 77; RESP 21; TEMP 36.5; O2SAT 90
--- NOTE | 2024-10-01 13:10 | ANE.PACU2 ---
Inpatient post-anesthesia follow up: Airway intact: Yes Vital signs: Temperature 97.7 F Pulse Rate 85 Respiratory Rate 16 Blood Pressure 118/87 Pulse Oximetry 96 Oxygen Delivery Me thod Room Air Oxygen Flow Rate Fraction of Inspir ed Oxygen Hydration adequate: Yes Nausea and vomiting: No Pain level: 1 Mental status: Baseline
[2024-10-01 13:11] VITALS: BP 118/87; PULSE 85; RESP 16; O2SAT 96
== END 2024-10-01 13:12 | disposition home or self-care (01) ==
PROVIDERS: PCP Family Medicine; Visit Provider Student in an Organized Health Care Education/Training Program
PROC: 0DJD8ZZ Inspection of Lower Intestinal Tract, Via Natural or Artificial Opening Endoscopic (ICD-10-PCS; CPT 45378; principal; 2024-10-01 12:15)
DX: Z09 Encounter for follow-up examination after completed treatment for conditions other than malignant neoplasm (principal); F17.200 Nicotine dependence, unspecified, uncomplicated; K57.30 Diverticulosis of large intestine without perforation or abscess without bleeding; Z79.899 Other long term (current) drug therapy; Z86.0109 Personal history of other colon polyps
CPT/HCPCS: 45378; J2704; J7030; J9999

== ENCOUNTER 2024-10-10 13:48 | Outpatient (CLI) | payer BC, MEDICAID, SELFPAY ==
--- NOTE | 2024-10-10 14:00 | CT_ITS ---
WS: [id number] LDCT LUNG CANCER SCREENING HISTORY: HISTORY OF TOBACCO USE TECHNIQUE: Axial imaging performed from the apices to 1 cm below the costophrenic angles. Coronal and sagittal reformats are submitted with axial MIP series. All CT scans at [facility] use at least one of these dose optimization techniques: automated exposure control; mA and/or kV adjustment per patient size (includes targeted exams where dose is matched to clinical indication); or iterative reconstruction. DLP: 115.71 mGy.cm DIvol: Mean CTDIvol: 2.80 (mGy) COMPARISON: 01/17/2023 Diagnostic quality: Satisfactory Lungs: Mild hyperinflation. Benign granuloma in the lingula. No change. No endobronchial lesions. No mass or pneumonia. Heart: Normal size heart with no pericardial effusion.. Moderate coronary artery calcifications. Other findings: Mild atherosclerosis aorta. Normal size pulmonary artery and aorta. No pathologically enlarged lymph nodes. Small hiatal hernia. No adrenal mass. Hypertrophic thoracic osteophytes. Stable lytic area LEFT scapula measures 1.4 cm. Subchondral cyst associated with the glenoid. CT/CT lung screening [id number] IMPRESSION: LUNG-RADS: 2-Benign Appearance or Behavior FOLLOW UP: 12 Month: Continue annual screening with LDCT OTHER FINDINGS (S MODIFIER): None.
== END 2024-10-10 13:49 | disposition home or self-care (01) ==
LOC: RAD 13:49
PROVIDERS: PCP Family Medicine; Visit Provider Family Medicine
DX: Z12.2 Encounter for screening for malignant neoplasm of respiratory organs (principal); Z87.891 Personal history of nicotine dependence; R91.8 Other nonspecific abnormal finding of lung field; J84.10 Pulmonary fibrosis, unspecified; I25.10 Atherosclerotic heart disease of native coronary artery without angina pectoris; I70.0 Atherosclerosis of aorta; K44.9 Diaphragmatic hernia without obstruction or gangrene; M25.78 Osteophyte, vertebrae; R93.89 Abnormal findings on diagnostic imaging of other specified body structures
CPT/HCPCS: 71271

== ENCOUNTER 2025-02-27 13:35 | Outpatient (CLI) | payer BC, MEDICAID, SELFPAY ==
--- NOTE | 2025-02-27 13:40 | MR_ITS ---
WS: [id number] MRI LUMBAR SPINE NONCONTRAST HISTORY: M54.16 - Radiculopathy, lumbar region COMPARISON: None available. TECHNIQUE: Sagittal and axial multisequence imaging is submitted. Study limited due to patient's claustrophobia. Mild degenerative spondylosis in the cervical spine. Small central disc protrusion at C5-6. Normal posterior alignment. Mild anterior wedging of L1. Suspect hemangioma at L2. Age indeterminate anterior compression fracture at L1. There is some increased T2 signal in L1 and L2 but there is also motion artifact. No change in the L1 or L2 vertebral bodies since the CT of 06/28/2021. Disc spaces and vertebral body heights are well-preserved. Conus terminates normally at L1-2 disc level. L1-L2: Mild annular disc bulging with facet arthritis. No significant stenosis. L2-L3: Diffuse annular disc bulging with osteophytic ridging. Very minimal disc encroachment upon the traversing L3 nerve roots. There is a shallow RIGHT paracentral disc protrusion. Mild bilateral foraminal stenosis and facet arthritis. L3-L4: Diffuse disc bulging with mild ligamentum flavum and moderate facet arthritis. Mild RIGHT foraminal stenosis. L4-L5: Diffuse disc bulging with a central shallow protrusion and annular fissure. Very minimal contact on the traversing L5 nerve roots. No significant foraminal stenosis. Moderate facet arthritis. L5-S1: Diffuse disc bulging with moderate facet arthropathy. Mild bilateral foraminal stenosis. There is mild disc contact on the exiting L5 nerve roots. Paravertebral soft tissues are negative. MR/MR lumbar spine wo con* [id number] IMPRESSION: 1. Chronic mild anterior wedging of L1. 2. No high-grade central or foraminal stenosis. 3. Multilevel facet joint arthropathy, most significant at L3-4 and L4-5. 4. Mild foraminal stenosis at L5-S1. Minimal disc contact on the exiting L5 ne rve roots. 5. Shallow central disc protrusion at L4-5 with mild contact on the L5 nerve r oots. 6. Minimal disc encroachment upon the traversing L3 nerve roots and a shallow RIGHT paracentral disc protrusion. 7. Mild bilateral foraminal stenosis at L2-3 and on the RIGHT at L3-4.
== END 2025-02-27 13:36 | disposition home or self-care (01) ==
LOC: RAD 13:36
PROVIDERS: PCP Family Medicine; Visit Provider Anesthesiology Pain Medicine
DX: M54.16 Radiculopathy, lumbar region (principal); M48.56XA Collapsed vertebra, not elsewhere classified, lumbar region, initial encounter for fracture; M47.896 Other spondylosis, lumbar region; M48.07 Spinal stenosis, lumbosacral region; M48.061 Spinal stenosis, lumbar region without neurogenic claudication; M47.892 Other spondylosis, cervical region; M50.222 Other cervical disc displacement at C5-C6 level; R93.7 Abnormal findings on diagnostic imaging of other parts of musculoskeletal system; M51.369 Other intervertebral disc degeneration, lumbar region without mention of lumbar back pain or lower extremity pain; M25.78 Osteophyte, vertebrae; M24.28 Disorder of ligament, vertebrae; M51.379 Other intervertebral disc degeneration, lumbosacral region without mention of lumbar back pain or lower extremity pain; M47.897 Other spondylosis, lumbosacral region
CPT/HCPCS: 72148